=== PATIENT | male | born 1935 | race Caucasian/White ===

== ENCOUNTER 2018-03-20 10:01 | Inpatient (IN) | payer MEDICARE ==
[~2018-03-20] VITALS: Ht 170.2 cm; Wt 75.1 kg
--- NOTE | ~2018-03-20 | HEMODYNAMI ---
PATIENT:BLADIMIR RIVERA MEDICAL RECORD: [id number] : 31 LOCATION:[facility] D.2310 ADMISSION DATE: 03/20/18 Generatedon:03/24/201813:14 Patient name: BLADIMIR RIVERA Patient #: [id number] SSN: D OB: 1935 Date of study: 03/24/2018 Page: Of Hemodynamic Procedure Report Patient Data Patient Demographics Procedure consent was obtained First Name: BLADIMIR Gender: Male Last Name: MIGUEL : 1935 Patient #: [id number] Age: 82 year(s) Race: Unknown Additional ID: [id number] Contact details [address]: [address] [place] [address] State: [place] City: [place] Zip code: [address] Past Medical History Allergies Allergen Reaction Date Comments Reported Morphine 03/24/2018 Admission Admission Data Admission Date: 03/20/2018 Admission Time: 14:00 Room #: D2310 Procedure Procedure Types Cath Procedure Peripheral Cath Diagnostic Procedure Miscellaneous Procedure Description Procedure Date Procedure Date: 03/24/2018 Procedure Start Time: 12:30 Procedure Staff Name Function Andrés Escoto MD Performing Physician Ulices Ortiz RT Monitor Kori Trevino RN Nurse Procedure Data Cath Procedure Fluoroscopy Diagnostic fluoroscopy Total fluoroscopy Time: 4 time: 4 min min Diagnostic fluoroscopy Total fluoroscopy dose: 364 dose: 364 mGy mGy Contrast Material Contrast Material Type Amount (ml) Isovue 300 80 Diagnostic catheters Device Type Used For End Catheter Placement Cook CHG-B 5FR 65CM catheter ([id number]) Angiodynamics SOS OMNI 2 NON B 5FR 65CM catheter ([id number]) Procedure Medications Medication Administration Route Dosage Heparin Flush Bag added to field 3 bags (1000units/500ml NS) Lidocaine 1% added to field 20 Versed I.V. 1 mg Fentanyl I.V. 50 mcg Hemodynamics Rest Heart Rate: 70 (bpm) Snapshots Pre Cath Intra NCS Post Cath Vital Signs Time Heart Resp SPO2 etCO2 NIBP (mmHg) Rhythm Pain Sedation Rate (ipm) (%) (mmHg) Status Level (bpm) 12:18:29 69 16 100 22 137/65(104) NSR 0 (11) 10(A) , No pain 12:22:49 69 14 100 27.3 122/61(104) NSR 0 (11) 10(A) , No pain 12:27:07 69 15 100 27.3 129/60(109) NSR 0 (11) 10(A) , No pain 12:31:25 77 18 100 30.3 128/70(108) NSR 0 (11) 10(A) , No pain 12:35:41 71 18 100 31.8 131/68(109) NSR 0 (11) 10(A) , No pain 12:39:59 74 14 100 25.8 126/70(106) NSR 0 (11) 10(A) , No pain 12:44:13 69 15 100 28.8 141/74(129) NSR 0 (11) 10(A) , No pain 12:48:31 69 16 100 22.7 141/76(117) NSR 0 (11) 10(A) , No pain 12:52:52 69 20 100 18.2 142/73(115) NSR 0 (11) 10(A) , No pain 12:57:14 69 17 100 22 141/71(126) NSR 0 (11) 10(A) , No pain 13:01:30 69 29 99 0 127/61(107) NSR 0 (11) 10(A) , No pain 13:05:48 69 13 99 22 128/63(99) NSR 0 (11) 10(A) , No pain 13:10:04 72 21 22.7 120/63(107) NSR 0 (11) 10(A) , No pain Medications Time Medication Route Dose Verified Delivered Reason Notes Effe ctiveness by by 12:28:37 Heparin Flush added 3 Andrés Bowen used for Bag to bags Escoto Escoto procedure (1000units/500ml field MD BLAS NS) 12:28:50 Lidocaine 1% added 20ml Andrés Bowen for local to vial Secoto Escoto anesthetic field MD BLAS 12:34:41 Versed I.V. 1 mg Andrés Bravo for Escoto Uriel RN sedation 12:34:52 Fentanyl I.V. 50 Andrés Bravo for mcg Jevon Trevino RN sedation Procedure Log Time Note 12:03:40 Ulices Angel RT (R) (CV) sent for patient. Start room use. 12:04:10 Time tracking: Regular hours (M-F 7:00 - 5:00) 12:04:15 Plan of Care:Hemodynamics will remain stable., Cardiac rhythm will remain stable., Comfort level will be maintained., Respiratory function will remain adequate., Patient/ family verbilizes understanding of procedure., Procedure tolerated without complication., Recovers from procedure without complications.. 12:04:21 Patient received from ICU to IR Alert and oriented. Tansferred to table in Supine position. 12:04:24 Correct patient and procedure confirmed by team. 12:04:27 Signed procedure consent form obtained from patient. 12:04:29 ECG and BP/O2 sat monitors applied to patient. 12:04:30 Full Disclosure recording started 12:04:32 - 12:04:36 H&P Date Dictated: 03/24/2018 Within 30 days and on chart.. 12:04:38 Pre-procedure instructions explained to patient. 12:04:38 Pre-op teaching completed and patient verbalized understanding. 12:04:44 Use device set IR Diagnostic 12:04:45 ACIST Syringe (42940) opened to sterile field. 12:04:45 ACIST Hand Control (09702) opened to sterile field. 12:04:46 ACIST Manifold (33512) opened to sterile field. 12:04:46 Bag Decanter (2001S) opened to sterile field. 12:04:47 Sterile Angiographic Pack opened to sterile field. 12:04:49 Tegaderm 4 x 4 (1626W) opened to sterile field. 12:04:56 Family unavailable. 12:04:58 Patient NPO since Midnight. 12:05:09 Patient allergic to Morphine 12:05:12 Is the patient allergic to Iodine/contrast media? No. 12:05:17 Is patient on blood thinner?No 12:05:23 Patient diabetic? Yes. 12:05:26 If diabetic: On Metformin? Yes ::28 - 12::28 ----Pre-sedation anethsthesia assessment.---- 12:05:31 Previous problem with sedation/anesthesia? No ? 12:05:33 Snore? No 12:05:36 Sleep apnea? No 12:05:38 Deviated septum? No 12:05:40 Opens mouth fully? Yes 12:05:42 Sticks out tongue? Yes 12:05:53 Airway obstruction? No ? 12:06:24 Dentures? Yes in tight 12:16:34 Pre procedure: right dorsailis pedis pulse Doppler 12:16:38 Pre procedure: right posterior tibial pulse Doppler 12:16:44 Patient pain scale 0/10 no pain. 12:17:01 IV patent on arrival in right forearm with Lactated Ringers at [facility]. 12:17:06 Sharps counted by scrub and verified by R.N. 12:17:06 Alarms reviewed by R. N. 12:17:10 Right groin area was prepped with chlora-prep and draped in sterile fashion 12:17:19 Vital chart was started 12:17:20 Baseline sample Acquired. 12:27:45 Physician arrived 12::46 --------ALL STOP TIME OUT------ 12::46 Final Timeout: patient, procedure, and site verified with staff and physician. All members of the team are in agreement. 12:27:48 Right groin site verified by team. 12:27:53 Sedation plan: IV Moderate Sedation Medication:Versed, Fentanyl 12:28:37 Heparin Flush Bag (1000units/500ml NS) 3 bags added to field was administered by Andrés Escoto MD; used for procedure; 12:28:50 Lidocaine 1% 20ml vial added to field was administered by Andrés Escoto MD; for local anesthetic; 12:30:20 Procedure started. 12:30:26 Local anesthetic to right femoral artery with Lidocaine 1% by Andrés Escoto MD.INITIAL ACCESS ONLY 12:30:31 SHEATH 5FR [place] (AYL682) opened to sterile field. 12:30:31 PERCUTANEOUS ENTRY 19GA needle opened to sterile field. 12:30:32 DOC .035 wire (L13661) opened to sterile field. 12:30:36 A Adaptive Planning CHG-B 5FR 65CM catheter ([id number]) was advanced over the wire and used for . 12:34:41 Versed 1 mg I.V. was administered by Shelly Trevino RN; for sedation; 12:34:52 Fentanyl 50 mcg I.V. was administered by Shelly Trevino RN; for sedation ; 12:41:09 A Angiodynamics SOS OMNI 2 NON B 5FR 65CM catheter ([id number]) was advanced over the wire and used for . 12:49:31 Procedure ended.(Physican Out) 12:51:03 Tegaderm 6 x 8 (1628) opened to sterile field. 12:51:03 Tegaderm 6 x 8 (1628) opened to sterile field. 12:51:33 Fluoroscopy time 04.00 minutes. 12:51:39 Fluoroscopy dose: 364 mGy 12:51:39 Flurop Dose total: 364 12:55:15 sheath and cath left in rt.groin and marco artery for vasopressor infusio n 4 x 4 and tegaderm applied 12:55:38 Sharps counted by scrub and verified by R.N. 12:55:46 Post-op/insertion site Right Femoral artery dressed using a 4 x 4 and Tegaderm. 12:55:50 Post right femoral artery:stable 12:55:53 Post procedure instruction explained to patient.Patient verbalizes understanding. 12:55:54 Procedure and supply charges have been captured, reviewed, submitted an d are correct. 12:56:31 Contrast amount:Isovue 300 80ml. 13:13:50 Post Procedure Pulses reassessed and unchanged 13:13:57 Report given to ICU. 13:14:00 Patient transfered to ICU with Bed. 13:14:23 Vital chart was stopped Device Usage Item Name Manufacture Quantity Catalog Hospital Part Current Minim al Lot# / Number Charge Number Stock Stock Serial# Code ACIST Syringe Acist Medical 1 72476 [id number] 470928 [id number] 20 (62767) Systems Inc ACIST Hand Acist Medical 1 75120 227218 029777 068342 5 Control Systems Inc (47425) ACIST Acist Medical 1 13201 993212 611205 725261 5 Manifold Systems Inc (03424) Bag Decanter Microtek 1 2002S 015579 54438 786043 5 (2001S) Medical Inc. Sterile Cardinal 1 [id number] 265018 029798 5 Angiographic Health Pack Tegaderm 4 x 3M 1 1626W 090395 713538 051387 5 4 (1626W) SHEATH 5FR Terumo 1 EAF461 845600 893244 204869 5 [place] (TFX307) PERCUTANEOUS Cook [facility] 1 I24366 923259 412627 5 [id number] ENTRY 19GA needle DOC .035 wire Cook [facility] 1 Q46704 074444 938826 5 (W91509) Cook CHG-B Cook [facility] 1 V07039 842890 739625 525190 5 5FR 65CM catheter (H00535) Angiodynamics Angiodynamics 1 [id number] 560315 47677 737031 5 SOS OMNI 2 NON B 5FR 65CM catheter ([id number]) Tegaderm 6 x 3M 2 1628 365961 919098 5 8 (1628) Signature Audit [place] Stage Time Signature Unsigned Intra-Procedure 03/24/2018 Ulices 1:14:21 PM Angel RT (R) (CV) Signatures Monitor : Ulices Signature : Angel RT Date : Time : [place] [id number] [facility] [place] [address]
[~2018-03-20 10:01] MED LIST: BAYER CHEWABLE81 MG PO; CARDIZEM120 MG PO; DONEPEZIL HCL5 M1 PO; FUROSEMIDE40 MG PO; GLUCOTROL 5 MG T5 MG PO; K-TAB10 MEQ PO; LOPRESSOR25 MG PO; NITROSTAT0.4 MG SL; PRAVACHOL40 MG PO; PROTONIX40 MG PO; ZYLOPRIM300 MG PO
[2018-03-20] MEDS ORDERED: PLAVIX75 MG PO (10:07)
[2018-03-20] MEDS ORDERED: GLUCOPHAGE1000 MG PO (10:09)
[2018-03-20 10:51] LABS: BASOPHILS 0.1 % (0-2); EOSINOPHILS 0 % (0-7); HEMATOCRIT 41.9 % (42.0-54.0); HEMOGLOBIN 14.1 g/dL (13.5-17.5); IMMATURE GRANULOCYTES 0.2 % (0-5); LYMPHOCYTES 22.1 % (15-50); MCH 31.2 pg (26.0-34.0); MCHC 33.7 g/dL (31.0-37.0); MCV 92.7 fL (80.0-100.0); MEAN PLATELET VOLUME 10.1 fL (7.4-10.4); MONOCYTES 7.9 % (2-11); NEUTROPHILS 69.7 % (40-80); PLATELET COUNT 247 10x3/uL (130-400); RBC 4.52 10x6/uL (4.20-6.10); RDW 14.5 % (11.5-14.5); WBC 8.7 10x3/uL (4.8-10.8)
[2018-03-20 11:11] LABS: ALBUMIN 3.7 g/dL (3.4-5.0); ANION GAP 16.8 mmol/L (8-16); BILIRUBIN - TOTAL 0.96 mg/dL (0.2-1.3); CALCIUM 8.9 mg/dL (8.5-10.1); CARBON DIOXIDE 27.1 mmol/L (21.0-32.0); CREATININE - SERUM 1.4 mg/dL (0.6-1.3); POTASSIUM - SERUM 3.9 mmol/L (3.5-5.1); PROTEIN - SERUM 7.4 g/dL (6.4-8.2); TROPONIN-I 0.032 ng/mL (0.000-0.060)
--- NOTE | 2018-03-20 12:56 | NUR ---
URINE COLLECTED AND SENT TO LAB
[2018-03-20 13:20] LABS: APPEARANCE CLEAR (CLEAR); COLOR YELLOW (YELLOW)
[2018-03-20 13:21] LABS: BACTERIA NONE SEEN /hpf (NONE SEEN); BILIRUBIN NEGATIVE (NEGATIVE); EPITHELIAL CELLS RARE /hpf (0-5); GLUCOSE NEGATIVE (NEGATIVE); GRANULAR CAST RARE /lpf (NONE SEEN); HYALINE CAST 0-5 /lpf (NONE SEEN); KETONE NEGATIVE (NEGATIVE); MUCUS <1+ /lpf (NONE SEEN); NITRITE NEGATIVE (NEGATIVE); PROTEIN 1+ mg/dL (NEGATIVE); RED CELLS - URINE OCC /hpf (0-5); UROBILINOGEN NORMAL (NORMAL); WHITE CELLS - URINE OCC /hpf (0-5)
--- NOTE | 2018-03-20 16:34 | NUR ---
LEVZAINAB COMPLETED AT 1600
--- NOTE | 2018-03-20 17:36 | NUR ---
RECIEVED PT FROM ER. PT C/O HUNGER/THIRST BUT HAS NPO ORDER. FMAILY AT BEDSIDE. CONFUSED. UP WITH ASSIST BUT CONFUSED. FALL RISK. CL IN REACH.
[2018-03-20 18:10] VITALS: BP 109/59; BMI 25.9
[2018-03-20 19:44] VITALS: BP 116/55
--- NOTE | 2018-03-20 20:00 | NUR ---
RESUMING CARE. PT IS ALERT AND CONFUSED TO TIME AND SITUATION. BED IS IN THE LOWEST POSITION WITH CALL LIGHT IN REACH. SIDE RAILS UP X 2. WILL CONTINUE MONITOR PT AND FOLLOW PLAN OF CARE.
[2018-03-20 23:50] VITALS: BP 135/61
--- NOTE | 2018-03-21 03:33 | NUR ---
PT RESTING WITH EYES CLOSED. RESP EVEN AND REGULAR. SR UP X2,CALL LIGHT WITHIN REACH.
[2018-03-21 03:45] VITALS: BP 121/50
[2018-03-21 05:44] LABS: BASOPHILS 0.1 % (0-2); EOSINOPHILS 0.1 % (0-7); HEMATOCRIT 39.6 % (42.0-54.0); HEMOGLOBIN 13.2 g/dL (13.5-17.5); IMMATURE GRANULOCYTES 0.4 % (0-5); LYMPHOCYTES 30.3 % (15-50); MCH 31.3 pg (26.0-34.0); MCHC 33.3 g/dL (31.0-37.0); MCV 93.8 fL (80.0-100.0); MEAN PLATELET VOLUME 10.4 fL (7.4-10.4); MONOCYTES 11.7 % (2-11); NEUTROPHILS 57.4 % (40-80); PLATELET COUNT 218 10x3/uL (130-400); RBC 4.22 10x6/uL (4.20-6.10); RDW 14.8 % (11.5-14.5); WBC 7.4 10x3/uL (4.8-10.8)
[2018-03-21 05:55] LABS: ANION GAP 14.7 mmol/L (8-16); BILIRUBIN - TOTAL 0.86 mg/dL (0.2-1.3); CALCIUM 8.5 mg/dL (8.5-10.1); CARBON DIOXIDE 28.1 mmol/L (21.0-32.0); CREATININE - SERUM 1.1 mg/dL (0.6-1.3); MAGNESIUM - SERUM 1.5 mg/dL (1.8-2.4); PHOSPHOROUS 3.5 mg/dL (2.5-4.9); POTASSIUM - SERUM 3.8 mmol/L (3.5-5.1); PROTEIN - SERUM 6.4 g/dL (6.4-8.2)
--- NOTE | 2018-03-21 07:20 | NUR ---
PT IN ROOM LYING DOWN. FAMILY AT BEDSIDE. STATES HE SLEPT WELL. NO C/O OTHER THAN BEING HUNGRY. (PT NPO FOR SURGERY CONSULT). PROVIDED MOUTH SWABS TO EASE DRYNESS. CL IN REACH.
[2018-03-21 08:00] VITALS: BP 129/61
--- NOTE | 2018-03-21 12:26 | HP ---
PATIENT: BLADIMIR RIVERA MEDICAL RECORD: [id number] ACCOUNT: [id number] LOCATION:[address] : [birth year] ADMISSION DATE: 03/20/18 PCP: DELMER UGARTE MD HISTORY AND PHYSICAL EXAMINATION HISTORY OF PRESENT ILLNESS: An 82-year-old male presented to the Emergency Room with a complaint of abdominal pain and suprapubic pain, right lower quadrant abdominal pains and suprapubic pain. 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 Denies tobacco or alcohol use. REVIEW OF SYSTEMS: GENERAL: No reported change in weight. Loss of appetite for the past several days with acute symptoms. HEENT: No cephalgia, visual changes, tinnitus, epistaxis, or dysphagia. CARDIOVASCULAR: Denies chest pain, denies palpitations. PULMONARY: Does have a cardiac history. PULMONARY: Denies hemoptysis, denies night sweats. GASTROINTESTINAL: Denies hematemesis, hematochezia or melena. Does admit right lower quadrant and suprapubic abdominal pain. MUSCULOSKELETAL: No acute changes. NEUROLOGIC: Increased confusion. Son reports visual hallucinations over the past several days, wax and wane and auditory as well. CURRENT MEDICATIONS: Listed as, donepezil 5 mg daily, Plavix 75 mg daily, Cardizem 120 mg t.i.d., nitroglycerin p.r.n., pravastatin 40 mg at bedtime, aspirin 81 mg daily, Lasix 20 mg daily, allopurinol 300 mg daily, unclear history of metformin and glyburide. PHYSICAL EXAMINATION: VITAL SIGNS: Temp on admission 99, blood pressure 109/59, heart rate 86, respirations 20, O2 sats 98%. GENERAL: Alert, oriented, mild to moderate distress secondary to abdominal and suprapubic pain. HEENT: Normocephalic, atraumatic. Eyes: Pupils are equally round and reactive. Ears: Canals patent, TMs are intact. Nose: Nares patent without drainage. Throat: No erythema, no exudates. NECK: Supple. No lymphadenopathy, no JVD, no appreciable carotid bruits. HEART: Regular rate and rhythm. No S3, S4, no rub. LUNGS: Clear to auscultation bilaterally. Breathing is nonlabored. ABDOMEN: Soft. Right lower quadrant tenderness with rebound and guarding. Suprapubic tenderness and right inguinal tenderness with guarding. IMAGING: CT of the abdomen and pelvis significant for small hiatal hernia. Appendix visualized not enlarged. There is wall thickening noted involving the ascending colon with minimal subjacent inflammatory changes. There is mild nonspecific bilateral perinephric stranding. No hydronephrosis of either kidney. Several cysts noted in both kidneys. Urinary bladder is partially distended without any focal irregular wall thickening. LABORATORY DATA: Urinalysis yellow, clear, 1+ protein, negative ketones, negative leukocyte esterase, no urine bacteria. CBC: White count 8.7, hemoglobin 14.1, hematocrit 41.9, platelets 247. Sodium 134, potassium 3.9, chloride 94, bicarbonate 27.1, BUN 28, creatinine 1.4, AST 20, ALT 20, alkaline HISTORY AND PHYSICAL [id number] RIVERABLADIMIR phosphatase 85. Troponin 0.032, amylase 50, and lipase 148. ASSESSMENT AND PLAN: 1. Abdominal pain with rebound and guarding. Abnormal CT with ascending colitis, empiric antibiotics. Cultures pending. With the location of the pain with right lower quadrant rebound and guarding, we will also consult surgery, n.p.o. tonight, IV hydration. 2. Diabetes. Sliding scale insulin. 3. Pain management. 4. Acute mental status change with history of cerebrovascular accident. We will obtain CT of the head without. Discussed case and care plan with son, agrees with plan, appreciative. TRANSINT:[id number] Voice Confirmation ID: [id number] DOCUMENT ID: [id number] GABRIELA YEE DO at 1226 CC: [id number] DICTATION DATE: 03/20/18 1833 MAGISTERIAL DISTRICT JUDGE: 03/20/18 3702 ADM IN [facility] [address] [place] [address]
--- NOTE | 2018-03-21 12:42 | NUR ---
EMAIL PRODUCTION CONSULTANT NOTE: PT RESTING IN BED. DENIES PAIN. NPO. NO S/S OF ACUTE DISTRESS. CL IN PLACE.
--- NOTE | 2018-03-21 14:36 | NUR ---
IV INFILATRATED RIGHT BEFORE I HUNG DUE ANTIBIOTIC. WILL REPLACE.
--- NOTE | 2018-03-21 14:54 | NUR ---
RESITED TO 20G RFA
[2018-03-21 16:00] VITALS: BP 126/53
[2018-03-21 17:55] VITALS: BP 135/56
--- NOTE | 2018-03-21 18:13 | NUR ---
PT RESTING, VERY PLESANTLY AND FRIENDLY. NO COMPLAINTS OR CONCERNS AT THIS TIME. CL I N REACH.
--- NOTE | 2018-03-21 19:20 | NUR ---
ALERT/AWAKE DENIES PAIN OR ANY NEEDS. IV IN R FA INTACT WITH LR INFUSING. TELEMETRY SHOWS 64 PACED. SOME OHKAY OWINGEH NOTED. ORIENTED TO CALL LIGHT.
--- NOTE | 2018-03-21 21:10 | NUR ---
ADMIN SCHED MEDS. CHECKED BS AT 132. ASSISTED TO BATHROOM TO VOID.
--- NOTE | 2018-03-22 02:45 | NUR ---
STATED HE HAD A BM, BUT THERE WAS URINE ALSO IN THE HAT AND COULD NOT BE USED FOR LAB ORDERED.
[2018-03-22 04:49] LABS: BASOPHILS 0.1 % (0-2); EOSINOPHILS 0.2 % (0-7); HEMATOCRIT 39.5 % (42.0-54.0); HEMOGLOBIN 12.8 g/dL (13.5-17.5); IMMATURE GRANULOCYTES 0.4 % (0-5); LYMPHOCYTES 23.8 % (15-50); MCH 30.9 pg (26.0-34.0); MCHC 32.4 g/dL (31.0-37.0); MCV 95.4 fL (80.0-100.0); MEAN PLATELET VOLUME 10.1 fL (7.4-10.4); MONOCYTES 11.3 % (2-11); NEUTROPHILS 64.2 % (40-80); PLATELET COUNT 201 10x3/uL (130-400); RBC 4.14 10x6/uL (4.20-6.10); RDW 14.8 % (11.5-14.5); WBC 8.1 10x3/uL (4.8-10.8)
[2018-03-22 05:07] VITALS: BP 160/63
[2018-03-22 05:10] LABS: ALBUMIN 2.9 g/dL (3.4-5.0); ANION GAP 13.4 mmol/L (8-16); BILIRUBIN - TOTAL 0.66 mg/dL (0.2-1.3); CALCIUM 8.3 mg/dL (8.5-10.1); CARBON DIOXIDE 27.9 mmol/L (21.0-32.0); CREATININE - SERUM 1.1 mg/dL (0.6-1.3); MAGNESIUM - SERUM 1.3 mg/dL (1.8-2.4); POTASSIUM - SERUM 3.3 mmol/L (3.5-5.1); PROTEIN - SERUM 5.9 g/dL (6.4-8.2)
[2018-03-22 05:16] LABS: PHOSPHOROUS 2.3 mg/dL (2.5-4.9)
--- NOTE | 2018-03-22 05:45 | NUR ---
CHECKED BS AT 147. REQUESTED SOME ICE WATER.
--- NOTE | 2018-03-22 08:10 | NUR ---
PT ASLEEP, DID NOT WAKE I ENTERED. DID NOT FURTHER DISTURB, CL IN REACH. SRX2.
[2018-03-22 08:59] VITALS: BP 139/78
--- NOTE | 2018-03-22 12:10 | NUR ---
PT ACCIDENTLY PULLED OUT I/V. TO BE REPLACED.
[2018-03-22 13:05] VITALS: BP 121/52
--- NOTE | 2018-03-22 14:06 | NUR ---
PT REFUSING NEW I/V PLACEMENT UNTIL HE SHOWERS. WILL ATTTEND TOO.
--- NOTE | 2018-03-22 15:45 | NUR ---
RIGHT ANTERIOR WRIST IV
--- NOTE | 2018-03-22 15:59 | NUR ---
BOAT JOINER NOTE: PT RESTING IN BED WITH SON AT BEDSIDE. CO OF "X4 STOOLS" TODAY AND "SORE ABD". SON STATES PT MENTAL STATUS "IS MORE CLEAR TODAY". NO S/S OF ACUTE DISTRESS. IV INFUSING TO R FOREARM. CL IN PLACE.
[2018-03-22 16:09] VITALS: BP 135/72
--- NOTE | 2018-03-22 19:20 | NUR ---
PT IS RESTING IN BED WITH EYES OPEN. ALERT AND ORIENTED X 3. PT BECAME SLIGHTLY SOB WHILE HE WAS EXPLAINING TO ME TO WATCH HIM VERY CLOSELY TONIGHT, BECAUSE HE MAY HAVE A SPELL AT ANY MOMENT. I ENCOURAGED PT TO TAKE SOME DEEP BREATHS AND HE CALMED DOWN IMMEDIATELY. IV INFUSING TO RIGHT WRIST WITHOUT DIFFICULTY. TELEMETRY UNIT IS ON AND INTACT. PT IS HARD OF HEARING. SR'S ARE UP X 3 IN BED. CALL LIGHT AND BEDSIDE TABLE ARE WITHIN EASY REACH.
[2018-03-22 19:45] VITALS: BP 123/57
--- NOTE | 2018-03-22 21:05 | NUR ---
PT ASSISTED TO THE BATHROOM WITH MIN ASSIST. SMALL BM NOTED.
[2018-03-22 23:41] VITALS: BP 117/58
[2018-03-23] VITALS (7 sets, daily range): BP systolic 109–143; BP diastolic 59–74
--- NOTE | 2018-03-23 00:21 | NUR ---
PT RESTING IN BED WITH EYES OPEN. HE STATES HE IS HAVING A MUCH BETTER NIGHT THAN USUAL. NO NEEDS VOICED.
--- NOTE | 2018-03-23 04:06 | NUR ---
PT RESTING IN BED WITH NO DISTRESS. RESPS NONLABORED. MONITOR AND CPOC. CALL LIGHT IN REACH.
[2018-03-23 05:42] LABS: BASOPHILS 0.2 % (0-2); EOSINOPHILS 0.5 % (0-7); HEMATOCRIT 36.9 % (42.0-54.0); HEMOGLOBIN 12.4 g/dL (13.5-17.5); IMMATURE GRANULOCYTES 0.3 % (0-5); LYMPHOCYTES 22.5 % (15-50); MCH 31.7 pg (26.0-34.0); MCHC 33.6 g/dL (31.0-37.0); MCV 94.4 fL (80.0-100.0); MEAN PLATELET VOLUME 10.2 fL (7.4-10.4); MONOCYTES 12.1 % (2-11); NEUTROPHILS 64.4 % (40-80); PLATELET COUNT 195 10x3/uL (130-400); RBC 3.91 10x6/uL (4.20-6.10); RDW 14.7 % (11.5-14.5); WBC 6.1 10x3/uL (4.8-10.8)
[2018-03-23 05:50] LABS: ALBUMIN 2.7 g/dL (3.4-5.0); ALKALINE PHOSPHATASE 58 U/L (46-116); ALT (SGPT) 16 U/L (10-68); BILIRUBIN - TOTAL 0.64 mg/dL (0.2-1.3); CALCIUM 7.9 mg/dL (8.5-10.1); CARBON DIOXIDE 28.4 mmol/L (21.0-32.0); CHLORIDE - SERUM 102 mmol/L (98-107); CREATININE - SERUM 0.9 mg/dL (0.6-1.3); GLUCOSE 149 mg/dL (74-106); MAGNESIUM - SERUM 1.2 mg/dL (1.8-2.4); PHOSPHOROUS 2.8 mg/dL (2.5-4.9); PROTEIN - SERUM 5.6 g/dL (6.4-8.2); SODIUM 139 mmol/L (136-145); eGFR NON AFRICAN AMERICAN 85 mL/min (90-120)
[2018-03-23 06:06] LABS: CALC OSMOLALITY 278 mosm/kg (275-300); UREA NITROGEN 8 mg/dL (7-18)
[2018-03-23 06:07] LABS: POTASSIUM - SERUM 2.7 mmol/L (3.5-5.1)
--- NOTE | 2018-03-23 07:37 | NUR ---
AM ROUNDS- PT RESTING COMFORTABLY IN BED, A/O X2, RESP EVEN AND NONLABORED ON RA. RT WRIST IV INFUSING LR AT 100. MONITOR SHOWING SR 69. PT DENIES ANY NEEDS AT THIS TIME. CALL LIGHT IN REACH, NAD NOTED,WILL CONTINUE PLAN OF CARE.
--- NOTE | 2018-03-23 11:24 | NUR ---
BLOOD SUGAR OF 164, 2UNITS OF HUMULIN GIVEN PER S/S. PT IN BED, DENIES ANY NEEDS A THIS TIME. CALL LIGHT IN REACH, NAD NOTED, WILL CONTINUE TO MONITOR.
[2018-03-23 13:08] LABS: POTASSIUM - SERUM 3.6 mmol/L (3.5-5.1)
--- NOTE | 2018-03-23 14:46 | NUR ---
PT RESTING COMFORTABLY IN BED, NAD NOTED, CALL LIGHT IN REACH, WILL CONTINUE TO MONITOR.
--- NOTE | 2018-03-23 20:00 | NUR ---
PT HAD A BLOODY STOOL WHICH ONLY DISCOLORED THE WATER SLIGHTLY. I INFORMED PT WE WOULD KEEP AN CLOSE EYE ON HIM. VERBAL UNDERSTANDING VOICED.
--- NOTE | 2018-03-23 21:10 | NUR ---
PT HAD A BLOODY STOOL CONSISTING OF A LARGE AMOUNT OF TAMIKA RED BLOOD WITH NUMEROUS CLOTS. DR GOPAL RUFFIN.
--- NOTE | 2018-03-23 22:14 | NUR ---
DR HERRON HERE ON FLOOR TO SEE PT. SHE PUT IN NUMEROUS ORDERS. PT TO TRANSFER TO ICU.
--- NOTE | 2018-03-23 22:38 | NUR ---
ICU CALLED WITH REPORT ON PT. DESTINI STATED DR HERRON HAD ALREADY GIVEN HIM REPORT AND THE ROOM WAS BEING REDIED NOW.
[2018-03-23 22:39] LABS: BASOPHILS 0.1 % (0-2); EOSINOPHILS 0.6 % (0-7); HEMATOCRIT 38.8 % (42.0-54.0); HEMOGLOBIN 12.8 g/dL (13.5-17.5); IMMATURE GRANULOCYTES 0.1 % (0-5); LYMPHOCYTES 22.8 % (15-50); MCH 31.4 pg (26.0-34.0); MCV 95.1 fL (80.0-100.0); MEAN PLATELET VOLUME 9.9 fL (7.4-10.4); NEUTROPHILS 67.4 % (40-80); PLATELET COUNT 198 10x3/uL (130-400); RBC 4.08 10x6/uL (4.20-6.10); RDW 14.9 % (11.5-14.5)
[2018-03-23 22:47] LABS: INR 1.24 (0.85-1.17)
--- NOTE | 2018-03-23 22:51 | NUR ---
ARRIVED TO UNIT VIA [email or web address] 2.
--- NOTE | 2018-03-23 23:05 | NUR ---
CALL MADE TO EJ RIVERA. NO ANSWER. CALL MADE TO NAIF RIVERA. HE WAS NOTIFIED OF TRANSFER. HE SAYS HE WILL COME IN IN THE AM. WARREN RIVERA RETURNED CALL AND WAS ALSO NOTIFIED.
[2018-03-23 23:07] LABS: WBC 8.4 10x3/uL (4.8-10.8)
--- NOTE | 2018-03-23 23:15 | NUR ---
MULTIPLE BRIGHT RED BMS NOTED WITH BLOOD CLOTS. AWARE.
[2018-03-24] VITALS (16 sets, daily range): BP systolic 93–138; BP diastolic 53–74; Ht 170.2 cm; Wt 75.1 kg
--- NOTE | 2018-03-24 00:10 | NUR ---
CRITICAL FINDING RECEIVED BY THIS NURSE FROM DR. LOZANO. INFORMATION RELAYED TO CHARGE NURSE SUNDAY METZ. DR. HERRON NOTIFIED BY SUNDAY METZ RN
--- NOTE | 2018-03-24 00:51 | NUR ---
DR. HERRON AT BEDSIDE. UPDATE GIVEN
--- NOTE | 2018-03-24 03:42 | NUR ---
DR. CAMARGO PHONED FOR UPDATE. ALL QUESTIONS ANSWERED. REQUESTS NURSE TO CALL IF ANYTHING MAJOR CHANGES. CALL
[2018-03-24 04:42] LABS: BASOPHILS 0.1 % (0-2); EOSINOPHILS 0.3 % (0-7); HEMATOCRIT 31.1 % (42.0-54.0); HEMOGLOBIN 10.3 g/dL (13.5-17.5); IMMATURE GRANULOCYTES 0.3 % (0-5); LYMPHOCYTES 13.7 % (15-50); MCH 30.7 pg (26.0-34.0); MCHC 33.1 g/dL (31.0-37.0); MEAN PLATELET VOLUME 9.8 fL (7.4-10.4); MONOCYTES 8.8 % (2-11); NEUTROPHILS 76.8 % (40-80); PLATELET COUNT 205 10x3/uL (130-400); RBC 3.35 10x6/uL (4.20-6.10); RDW 15.2 % (11.5-14.5); WBC 6.9 10x3/uL (4.8-10.8)
[2018-03-24 05:03] LABS: MCV 92.8 fL (80.0-100.0)
[2018-03-24 05:07] LABS: CALC OSMOLALITY 282 mosm/kg (275-300); CALCIUM 7.4 mg/dL (8.5-10.1); CARBON DIOXIDE 26.4 mmol/L (21.0-32.0); CHLORIDE - SERUM 107 mmol/L (98-107); CREATININE - SERUM 0.9 mg/dL (0.6-1.3); GLUCOSE 149 mg/dL (74-106); MAGNESIUM - SERUM 1.5 mg/dL (1.8-2.4); SODIUM 141 mmol/L (136-145); UREA NITROGEN 9 mg/dL (7-18); eGFR NON AFRICAN AMERICAN 85 mL/min (90-120)
[2018-03-24 05:09] LABS: POTASSIUM - SERUM 2.8 mmol/L (3.5-5.1)
--- NOTE | 2018-03-24 06:33 | NUR ---
EJ PHONED FOR UPDATE. PT AWARE AND GIVES NURSE PERMISSION TO GIVE UPDATE. ALL QUESTIONS ANSWERED.
--- NOTE | 2018-03-24 07:00 | NUR ---
SHIFT ASSESSMENT COMPLETED, PT CARE ASSUMED. MONITORS ON AND WORKING. VITALS STABLE. CALL LIGHT WITHIN REACH. WILL CONTINUE TO OBSERVE.
--- NOTE | 2018-03-24 09:00 | NUR ---
NO CHNAGES, MONITIORS ON AND WORKING. VITALS STABLE. NO SIGNS/SYMPTOMS OF PAIN OR DISCOMFORT NOTED AT THIS TIME, WILL CONTINUE TO OBSERVE.
[2018-03-24 09:48] LABS: BASOPHILS 0.2 % (0-2); EOSINOPHILS 0.5 % (0-7); HEMATOCRIT 31.3 % (42.0-54.0); HEMOGLOBIN 10.4 g/dL (13.5-17.5); IMMATURE GRANULOCYTES 0.2 % (0-5); LYMPHOCYTES 21.8 % (15-50); MCH 30.5 pg (26.0-34.0); MCHC 33.2 g/dL (31.0-37.0); MCV 91.8 fL (80.0-100.0); MEAN PLATELET VOLUME 9.5 fL (7.4-10.4); MONOCYTES 11.1 % (2-11); NEUTROPHILS 66.2 % (40-80); PLATELET COUNT 197 10x3/uL (130-400); RBC 3.41 10x6/uL (4.20-6.10); RDW 15.7 % (11.5-14.5); WBC 5.8 10x3/uL (4.8-10.8)
--- NOTE | 2018-03-24 11:00 | NUR ---
NO CHNAGES, SEE FLOW SHEET FOR FURTHER DETAILS. WILL CONTINUE TO OBSERVE.
--- NOTE | 2018-03-24 13:00 | NUR ---
PT IN IR
--- NOTE | 2018-03-24 15:00 | NUR ---
PT IN IR
--- NOTE | 2018-03-24 15:38 | MORECARE ---
CASE MANAGEMENT DISCHARGE SUMMARY PATIENT: BLADIMIR RIVERA UNIT: [id number] ADM DATE: 03/20/18 AGE: 82 : 33 SEX: M ROOM/BED: D.2310 AUTHOR: JORGE ZAMBRANO PHYSICIAN: REFERRING PHYSICIAN: GABRIELA YEE DO DATE OF SERVICE: 03/24/18 Discharge Plan Patient Name: BLADIMIR RIVERA [facility] [facility] 1935 Planned Disposition: Home Anticipated Discharge Date: Discharge Date: Expected LOS: Initial Reviewer: [email or web address] Initial Review Date: 03/24/2018 Generated: 03/24/18 4:37 pm DCPIA - Discharge Planning Initial Assessment Updated by [email or web address]: Pura Knowles on 03/24/18 3:37 pm * Is the patient Alert and Oriented? Yes * How many steps to enter\exit or inside your home? * PCP DR. UGARTE * Pharmacy [facility] * Preadmission Environment Home with Family * ADLs Independent * Other Equipment W/C, WALKER, SHOWER CHAIR * List name and contact numbers for known caregivers / representatives who currently or will assist patient after discharge: NAIF RIVERA - SON - [phone] * Verbal permission to speak to the caregivers and representatives has been obtained from the patient. N/A * Community resources currently utilized None * Additional services required to return to the preadmission environment? No * Can the patient safely return to the preadmission environment? Yes * Has this patient been hospitalized within the prior 30 days at any hospital? No Patient Name: BLADIMIR RIVERA Page [id number] at 1538 All edits/amendments must be made on the electronic document DICTATION DATE: 03/24/18 1537 CRIBBER: DARREL 03/24/181536 RPT#: [id number] DC DATE: STATUS: ADM IN [facility] [address] [place] [address] END OF REPORT
--- NOTE | 2018-03-24 15:46 | MORECARE ---
CASE MANAGEMENT DISCHARGE SUMMARY PATIENT: BLADIMIR RIVERA UNIT: [id number] ADM DATE: 03/20/18 AGE: 82 : 33 SEX: M ROOM/BED: D.2310 AUTHOR: KENYADOC PHYSICIAN: REFERRING PHYSICIAN: GABRIELA YEE DO DATE OF SERVICE: 03/24/18 Discharge Plan Patient Name: BLADIMIR RIVERA Facility: [facility]:[place] : 1935 Planned Disposition: Home Anticipated Discharge Date: Discharge Date: Expected LOS: Initial Reviewer: [email or web address] Initial Review Date: 03/24/2018 Generated: 03/24/18 4:45 pm Comments DCP- Discharge Planning Updated by [email or web address]: Pura Knowles on 03/24/18 2:[address] Patient Name: BLADIMIR RIVERA Admission Status: ER Accout number: [id number] Admission Date: 03-20-2018 : 1935 Admission Diagnosis:NONINFECTIVE GASTROENTERITIS AND COLITIS, UNSPECIFIED Attending: GABRIELA YEE Current LOS: 4 Anticipated DC Date: Planned Disposition: Home Primary Insurance: MEDICARE A & B Discharge Planning Comments: CM met with patient at bedside. Patient states that his son has been staying with him (Naif) Patient states that he plans on returning to his home upon discharge. Patient denies any discharge needs at this time. CM will continue to follow and assist as needed with discharge planning / needs. Lacquer Coater: Pura Knowles DCPIA - Discharge Planning Initial Assessment Updated by [email or web address]: Pura Knowles on 03/24/18 3:37 pm * Is the patient Alert and Oriented? Yes * How many steps to enter\exit or inside your home? * PCP DR. UGARTE * Pharmacy [facility] * Preadmission Environment Home with Family * ADLs Independent * Other Equipment W/C, WALKER, SHOWER CHAIR * List name and contact numbers for known caregivers / representatives who currently or will assist patient after discharge: NAIF RIVERA - SON - [phone] * Verbal permission to speak to the caregivers and representatives has been obtained from the patient. N/A * Community resources currently utilized None * Additional services required to return to the preadmission environment? No * Can the patient safely return to the preadmission environment? Yes * Has this patient been hospitalized within the prior 30 days at any hospital? No Last DP export: 03/24/18 2:38 p Patient Name: BLADIMIR RIVERA Page [id number] at 1546 All edits/amendments must be made on the electronic document DICTATION DATE: 03/24/181544 DIRECTOR COUNCIL ON AGING: DARREL 03/24/181544 RPT#: [id number] DC DATE: STATUS: ADM IN [facility] [address] [place] [address] END OF REPORT
--- NOTE | 2018-03-24 17:00 | NUR ---
PT LYING IN BED, RIGHT GROIN INCISION SITE DRESSING CDI. NO SIGNS/SYMPTOMS OF PAIN OR DISCOMFORT NOTED AT THIS TIME.
[2018-03-24 18:06] LABS: HEMATOCRIT 29.9 % (42.0-54.0); HEMOGLOBIN 9.7 g/dL (13.5-17.5)
--- NOTE | 2018-03-24 19:10 | NUR ---
REPORT RECIEVED FROM DAY SHIFT. PATIENT LAYING IN BED AWAKE AND ALERT. ORIENTED X 4 . RT FEMORAL SHEATH DRSG C/D/I. VASOPRESSIN INFUSING 0.2 MCG. PATIENT DENIES ANY NEEDS OR PAIN. WILL CONTINUE WITH PLAN OF CARE. SR UP X 2 BED IN LOW POSITION CALL LIGHT IN REACH.
--- NOTE | 2018-03-24 23:42 | NUR ---
PATIENT LAYING IN BED ON BACK FLAT WITH EYES CLOSED AND BREATHING EVENLY.
[2018-03-25] VITALS (17 sets, daily range): BP systolic 108–130; BP diastolic 55–66
--- NOTE | 2018-03-25 02:54 | NUR ---
PATIENT RESTING WITH EYES CLOSED AND BREATHING EVENLY. PATIENT UNCHAGED. SR UP X 2 BED IN LOW POSITON AND CALL LIGHT IN REACH. WILL CONTINUE TO MONITOR.
[2018-03-25 04:29] LABS: BASOPHILS 0 % (0-2); EOSINOPHILS 0.2 % (0-7); HEMATOCRIT 27.1 % (42.0-54.0); HEMOGLOBIN 9.2 g/dL (13.5-17.5); IMMATURE GRANULOCYTES 0.2 % (0-5); LYMPHOCYTES 22.1 % (15-50); MCH 30.8 pg (26.0-34.0); MCHC 33.9 g/dL (31.0-37.0); MCV 90.6 fL (80.0-100.0); MEAN PLATELET VOLUME 9.8 fL (7.4-10.4); NEUTROPHILS 67.5 % (40-80); PLATELET COUNT 164 10x3/uL (130-400); RBC 2.99 10x6/uL (4.20-6.10); RDW 15.6 % (11.5-14.5); WBC 5.2 10x3/uL (4.8-10.8)
[2018-03-25 04:39] LABS: CALCIUM 7.1 mg/dL (8.5-10.1); CARBON DIOXIDE 24.9 mmol/L (21.0-32.0); CHLORIDE - SERUM 102 mmol/L (98-107); CREATININE - SERUM 0.9 mg/dL (0.6-1.3); POTASSIUM - SERUM 3.1 mmol/L (3.5-5.1); SODIUM 137 mmol/L (136-145); eGFR NON AFRICAN AMERICAN 85 mL/min (90-120)
[2018-03-25 04:41] LABS: CALC OSMOLALITY 283 mosm/kg (275-300); GLUCOSE 255 mg/dL (74-106); UREA NITROGEN 14 mg/dL (7-18)
--- NOTE | 2018-03-25 07:00 | NUR ---
SHIFT ASSESSMENT COMPLETED, PT CARE ASSUMED. MONITORS ON AND WORKING, VITALS STABLE. PT AWAKE AND ALERT, CALL LIGHT WITHIN REACH, WILL CONTINUE TO OBSERVE.
--- NOTE | 2018-03-25 09:00 | NUR ---
PT AWAKE AND ALERT, SCHRADER STAT LOCKED IN PLACE, RIGHT GROIN DRESSING CDI, NO SIGNS/SYMPTOMS OF SWELLING BLEEDING OR BRUISING. CALL LIGHT WITHIN REACH, WILL CONTINUE TO OBSERVE.
[2018-03-25 10:57] LABS: HEMATOCRIT 28.3 % (42.0-54.0); HEMOGLOBIN 9.5 g/dL (13.5-17.5)
--- NOTE | 2018-03-25 11:00 | NUR ---
PT CLEANED FROM BROWN BM, NO BLOODY STOOLS NOTED. NO CHANGES, VITALS STABLE. SEE FLOW SHEET FOR FURTHER DETAILS. CALL LIGHT WITHIN REACH.
--- NOTE | 2018-03-25 13:00 | NUR ---
FAMILY AT BEDSIDE, UPDATE PROVIDED, MONITORS ON AND WORKING. VITALS STABLE. ORDERS REC'D TO START PT ON CLEAR LIQUID DIET, CALL LIGHT WITHIN REACH, WILL CONTINUE TO OBSERVE.
--- NOTE | 2018-03-25 15:00 | NUR ---
PT AWAKE AND ALERT, NO SIGNS/SYMPTOMS OF PAIN OR DISCOMFORT NOTED. VASCULAR ACCESS NURSE AT BEDSIDE TO PLACE MIDLINE. SEE FLOW SHEET FOR FURTHER DETAILS.
--- NOTE | 2018-03-25 17:00 | NUR ---
PT TOLERATED CLEAR LIQUID DIET WELL, PT AWAKE AND ALERT, MONITORS ON AND WORKING, VITALS STABLE. FAMILY AT BEDSIDE, UPDATE PROVIDED. CALL LIGHT WITHIN REACH, WILL CONTINUE TO OBSERVE.
--- NOTE | 2018-03-25 19:15 | NUR ---
REPORT RECIEVED FROM DAY SHIFT. PATIENT IS LAYING IN BED ON BACK . PATIENT HAD MODERATE AMOUNT BROWN LIQUID STOOL WITH NO OBVIOUS BLOOD. BOTTOM AND COCCYX WITH REDDENED SKIN. PATIENT CLEANED AND BUTT PASTE APPLIED. BED AND LINEN CHANGED. PATIENT STABLE AND VITAL SIGNS GOOD. PATIENT DENIES ANY NEEDS OR PAIN. WILL CONTINUE TO MONITOR CLOSELY.
[2018-03-25 19:41] LABS: HEMATOCRIT 25.8 % (42.0-54.0); HEMOGLOBIN 8.7 g/dL (13.5-17.5)
[2018-03-26] VITALS (23 sets, daily range): BP systolic 92–126; BP diastolic 56–81
--- NOTE | 2018-03-26 00:03 | NUR ---
PATIENT LAYING IN BED WITH EYES CLOSED AND BREATHING EVENLY. VITAL SIGNS ARE STABLE AND UNCHANGED. WILL CONTINUE TO MONITOR. REASSESMENT COMPLETED. SR UP X 2 BED IN LOW POSITON AND CALL LIGHT IN REACH.
--- NOTE | 2018-03-26 03:10 | NUR ---
PATIENT HAD SM BROWN LIQUID STOOL. GAVE PATIENT BATH AND CHANGED LINEN. REASSESMENT COMPLETED. WILL CONTINUE TO MONITOR.
[2018-03-26 05:02] LABS: BASOPHILS 0.1 % (0-2); EOSINOPHILS 0.7 % (0-7); HEMATOCRIT 27.8 % (42.0-54.0); HEMOGLOBIN 9.2 g/dL (13.5-17.5); IMMATURE GRANULOCYTES 0.3 % (0-5); LYMPHOCYTES 18.7 % (15-50); MCH 30.7 pg (26.0-34.0); MCHC 33.1 g/dL (31.0-37.0); MEAN PLATELET VOLUME 9.8 fL (7.4-10.4); MONOCYTES 10.3 % (2-11); NEUTROPHILS 69.9 % (40-80); RDW 15.6 % (11.5-14.5)
[2018-03-26 05:07] LABS: MCV 92.7 fL (80.0-100.0); PLATELET COUNT 131 10x3/uL (130-400); WBC 6.7 10x3/uL (4.8-10.8)
[2018-03-26 05:31] LABS: CALC OSMOLALITY 281 mosm/kg (275-300); CALCIUM 7.3 mg/dL (8.5-10.1); CARBON DIOXIDE 24.5 mmol/L (21.0-32.0); CHLORIDE - SERUM 105 mmol/L (98-107); CREATININE - SERUM 0.9 mg/dL (0.6-1.3); GLUCOSE 153 mg/dL (74-106); POTASSIUM - SERUM 3.7 mmol/L (3.5-5.1); SODIUM 138 mmol/L (136-145); UREA NITROGEN 21 mg/dL (7-18); eGFR NON AFRICAN AMERICAN 85 mL/min (90-120)
--- NOTE | 2018-03-26 06:50 | NUR ---
PATIENT AWAKE . PATIENT IS UNCHANGED. DENIES ANY NEEDS OR PAIN. WILL GIVE REPORT TO DAY SHIFT.
--- NOTE | 2018-03-26 08:06 | NUR ---
PT RESTING IN BED. AROUSED BY VERBAL STIMULI. LEG STRAIGHT. PEDAL PULSE NOTED.NO S/S OF ACUTE DISTRESS.
--- NOTE | 2018-03-26 09:24 | NUR ---
NUTRITION F/U CLEAR LIQUID DIET STARTED. WILL MONITOR DIET ADVANCEMENT, PT PROGRESS. RD FOLLOWING
--- NOTE | 2018-03-26 10:35 | NUR ---
PT RESTING. CHEST RISING AND FALLING. PRBC INFUSING. NO SOB, FEVER, OR S/S OF ACUTE DISTRESS. ASSITED PT WITH CHICKEN BROTH AND JELLO. PT ATE ALL OF JELLO AND 1/2 OF CHICKEN BROTH. NO S/S OF ACUTE DISTRESS. CL IN PLACE.
--- NOTE | 2018-03-26 12:47 | NUR ---
AAOX4. CHANGED PT. SMALL RED BROWN PASTY STOOL NOTED. BEAUDREAS APPLIED TO BOTTOM. NO S/S OF ACUTE DISTRESS. CL IN PLACE.
--- NOTE | 2018-03-26 13:51 | NUR ---
EDUCATED PT TO COUGH AND DEEP BREATH. GAVE SIMETHICONE ORDERED PER MD FOR GAS PAIN. NO S/S OF ACUTE DISTRESS. CL IN PLACE.
[2018-03-26 16:13] LABS: HEMATOCRIT 30.4 % (42.0-54.0); HEMOGLOBIN 10.2 g/dL (13.5-17.5)
--- NOTE | 2018-03-26 17:03 | NUR ---
PT RESTING IN BED. SON AT BEDSIDE. STARTED PROCALMINE PER MD ORDER. DENIES GAS AT THIS TIME.NO S/S OF ACUTE DISTRESS. CL IN PLACE. SON IN VISITING AT BEDSIDE.
--- NOTE | 2018-03-26 18:54 | NUR ---
CLEANED PT. CHANGED BED LINENS PERFORMED NOREEN CARE. 1 SMALL RED BROWN PASTY STOOL NOTED. BARRIER CREAM APPLIED. PLACED PILLOW UNDER L SIDE. TURNED. NO S/S OF ACUTE DISTRESS. CL IN PLACE.
--- NOTE | 2018-03-26 19:27 | NUR ---
REPORT RECEIVED, CARE ASSUMED. INITIAL ASSESSMENT COMPLETED, SEE FLOWSHEET. PT IS RESTING IN BED AT THIS TIME WITH EYES CLOSED. NO NEEDS NOTED. NO SIGNS OF ACUTE DISTRESS. WILL CONTINUE TO MONITOR.
--- NOTE | 2018-03-26 21:27 | NUR ---
PT LAYING IN BED WITH EYES CLOSED. DENIES NEEDS AT THIS TIME. NO SIGNS OF ACUTE DISTRESS. WILL CONTINUE TO MONITOR.
--- NOTE | 2018-03-26 23:24 | NUR ---
REASSESSMENT COMPLETED, SEE FLOWSHEET. NO ACUTE CHANGES NOTED. NO SIGNS OF ACUTE DISTRESS. WILL CONTINUE TO MONITOR.
[2018-03-27] VITALS (24 sets, daily range): BP systolic 115–145; BP diastolic 64–85
--- NOTE | 2018-03-27 01:24 | NUR ---
PT IS LAYING IN BED WITH EYES CLOSED AT THIS TIME. NO SIGNS OF ACUTE DISTRESS. WILL CONTINUE TO MONITOR.
--- NOTE | 2018-03-27 03:25 | NUR ---
REASSESSMENT COMPLETED, SEE FLOWSHEET. NO ACUTE CHANGES NOTED. NO SIGNS OF ACUTE DISTRESS. WILL CONTINUE TO MONITOR.
[2018-03-27 04:04] LABS: BASOPHILS 0.1 % (0-2); EOSINOPHILS 0.9 % (0-7); HEMATOCRIT 31.6 % (42.0-54.0); HEMOGLOBIN 10.5 g/dL (13.5-17.5); IMMATURE GRANULOCYTES 0.4 % (0-5); LYMPHOCYTES 16.4 % (15-50); MCH 30.3 pg (26.0-34.0); MCHC 33.2 g/dL (31.0-37.0); MCV 91.1 fL (80.0-100.0); MEAN PLATELET VOLUME 10.2 fL (7.4-10.4); MONOCYTES 10.2 % (2-11); PLATELET COUNT 111 10x3/uL (130-400); RBC 3.47 10x6/uL (4.20-6.10)
[2018-03-27 04:22] LABS: ALBUMIN 2.2 g/dL (3.4-5.0); ALKALINE PHOSPHATASE 43 U/L (46-116); ALT (SGPT) 19 U/L (10-68); BILIRUBIN - TOTAL 0.55 mg/dL (0.2-1.3); CALCIUM 7.6 mg/dL (8.5-10.1); CARBON DIOXIDE 21.3 mmol/L (21.0-32.0); CHLORIDE - SERUM 107 mmol/L (98-107); PROTEIN - SERUM 4.8 g/dL (6.4-8.2); SODIUM 141 mmol/L (136-145); UREA NITROGEN 20 mg/dL (7-18); eGFR NON AFRICAN AMERICAN 76 mL/min (90-120)
[2018-03-27 04:23] LABS: CALC OSMOLALITY 282 mosm/kg (275-300); GLUCOSE 86 mg/dL (74-106)
--- NOTE | 2018-03-27 05:25 | NUR ---
PT RESTING IN BED WITH EYES CLOSED. NO SIGNS OF ACUTE DISTRESS. AM LABS REVIEWED AND ELECTROLYTE PROTOCOL FOLLOWED. WILL CONTINUE TO MONITOR.
--- NOTE | 2018-03-27 19:25 | NUR ---
REPORT RECEIVED, CARE ASSUMED. INITIAL ASSESSMENT COMPLETED. NO SIGNS OF BLEEDING. SPOKE WITH DR SHAH REGARDING MOVING PT TO MED SURG, HE SAID THAT THIS WOULD BE FINE. WAITING CASTING WHEEL OPERATOR BACK FROM OTHER PHYSICANS ON THE PATIENTS CASE. NO SIGNS OF ACUTE DISTRESS. WILL CONTINUE TO MONITOR.
--- NOTE | 2018-03-27 21:20 | NUR ---
PT RESTING IN BED AT THIS TIME. NO SIGNS OF ACUTE DISTRESS. NO NEEDS NOTED. WILL CONTINUE TO MONITOR.
--- NOTE | 2018-03-27 23:21 | NUR ---
REASSESSMENT COMPLETED, SEE FLOWSHEET. NO ACUTE CHANGES NOTED. NO SIGNS OF ACUTE DISTRESS. WILL CONTINUE TO MONITOR.
[2018-03-28] VITALS (10 sets, daily range): BP systolic 115–166; BP diastolic 58–79
--- NOTE | 2018-03-28 01:15 | NUR ---
PT RESTING IN BED WITH EYES CLOSED. NO CHANGES NOTED. NO NEEDS VOICED. PT REPOSITIONED FOR COMFORT. NO SIGNS OF ACUTE DISTRESS. WILL CONTINUE TO MONITOR.
--- NOTE | 2018-03-28 03:15 | NUR ---
REASSESSMENT COMPLETED, SEE FLOWSHEET. PT REPOSITIONED FOR COMFORT. NO SIGNS OF ACUTE DISTRESS. WILL CONTINUE TO MONITOR.
[2018-03-28 04:09] LABS: BASOPHILS 0.3 % (0-2); EOSINOPHILS 0.8 % (0-7); HEMATOCRIT 31.1 % (42.0-54.0); HEMOGLOBIN 10.5 g/dL (13.5-17.5); IMMATURE GRANULOCYTES 0.4 % (0-5); LYMPHOCYTES 23.5 % (15-50); MCH 30.4 pg (26.0-34.0); MCHC 33.8 g/dL (31.0-37.0); MCV 90.1 fL (80.0-100.0); PLATELET COUNT 106 10x3/uL (130-400); RBC 3.45 10x6/uL (4.20-6.10); RDW 16.3 % (11.5-14.5); WBC 7.4 10x3/uL (4.8-10.8)
[2018-03-28 04:20] LABS: ALBUMIN 2.1 g/dL (3.4-5.0); ALKALINE PHOSPHATASE 47 U/L (46-116); BILIRUBIN - TOTAL 0.56 mg/dL (0.2-1.3); CALCIUM 7.3 mg/dL (8.5-10.1); CARBON DIOXIDE 25.5 mmol/L (21.0-32.0); CHLORIDE - SERUM 106 mmol/L (98-107); MAGNESIUM - SERUM 1.7 mg/dL (1.8-2.4); POTASSIUM - SERUM 3.3 mmol/L (3.5-5.1); PROTEIN - SERUM 4.7 g/dL (6.4-8.2); SODIUM 138 mmol/L (136-145); UREA NITROGEN 18 mg/dL (7-18); eGFR NON AFRICAN AMERICAN 76 mL/min (90-120)
[2018-03-28 04:29] LABS: ALT (SGPT) 29 U/L (10-68); CALC OSMOLALITY 280 mosm/kg (275-300); GLUCOSE 144 mg/dL (74-106)
--- NOTE | 2018-03-28 05:15 | NUR ---
PT REPOSITIONED FOR COMFORT. NO SIGNS OF ACUTE DISTRESS. WILL CONTINUE TO MONITOR.
--- NOTE | 2018-03-28 08:48 | NUR ---
PATIENT RESTING. PULLED UP IN BED. BREAKFAST EATEN. CO PAIN IN LOWER MID ABDOMEN
--- NOTE | 2018-03-28 09:55 | NUR ---
FAMILY IN ROOM. NO NEEDS AT THIS TIME. REQUESTS SOMETHING TO HAVE A BM. I EXPLAINED WE HAVE GOLYTELY ON THE SCHEDULE FOR 1300 AND THAT WILL HELP CLEAN HIM OUT. NO FURTHER NEEDS AT THIS TIME
--- NOTE | 2018-03-28 10:19 | NUR ---
PATIENT RESTING. NO NEEDS AT THIS TIME
--- NOTE | 2018-03-28 11:19 | NUR ---
PATIENT IN CHAIR. PT SAYS SELF TRANSFER. STAND BY FOR ASSISTANCE IF NEEDED. NO NEEDS AT THIS TIME
--- NOTE | 2018-03-28 12:12 | NUR ---
PATIENT IN CHAIR. BED MADE. EATING LUNCH. NO NEEDS AT THIS TIME
--- NOTE | 2018-03-28 12:27 | NUR ---
FAMILY IN ROOM. NO NEEDS AT THIS TIME
--- NOTE | 2018-03-28 13:30 | NUR ---
PT TO THE FLOOR VIA WHELLCHAIR AND HOSPITAL STAFF.
--- NOTE | 2018-03-28 19:23 | NUR ---
RECEIVED REPORT,WILL ASSUME CARE OF PT, PT IS UP TO BSC, CALL LIGHT IN REACH, WILL CONTINUE PLAN OF CARE
--- NOTE | 2018-03-28 21:00 | NUR ---
[id number], DIDNT COVER, PT WILL BE NPO AFTER MIDNIGHT
[2018-03-29 04:30] VITALS: BP 142/65
--- NOTE | 2018-03-29 05:00 | NUR ---
PT RESTING IN BED WITH NO DISTRESS. RESPS EVEN/NONLABORED. MONITOR AND CPOC. CALL LIGHT IN REACH. NO NEEDS AT THIS TIME.
--- NOTE | 2018-03-29 07:23 | NUR ---
CALLED LAB AND THEY STATED THEY TRIED SEVERAL TIME TO DRAW AND WERE UNALE TO GET ANY BLOOD FOR AM LABS.
[2018-03-29 07:53] LABS: CALC OSMOLALITY 276 mosm/kg (275-300); CALCIUM 7.1 mg/dL (8.5-10.1); CARBON DIOXIDE 20.7 mmol/L (21.0-32.0); CHLORIDE - SERUM 105 mmol/L (98-107); CREATININE - SERUM 0.7 mg/dL (0.6-1.3); GLUCOSE 161 mg/dL (74-106); POTASSIUM - SERUM 4.4 mmol/L (3.5-5.1); SODIUM 137 mmol/L (136-145); UREA NITROGEN 12 mg/dL (7-18); eGFR NON AFRICAN AMERICAN > 90 mL/min (90-120)
--- NOTE | 2018-03-29 08:03 | NUR ---
PT LEFT FLOOR FOR HIS COLONOSCOPY VIA BED AND HOSPITAL PERSONS.
--- NOTE | 2018-03-29 10:50 | NUR ---
RESTS IN BED WITH EYES CLOSED. SCHRADER INTACT. CALL LIGHT IN REACH.
[2018-03-29 10:58] LABS: BASOPHILS 0.4 % (0-2); EOSINOPHILS 1.1 % (0-7); HEMOGLOBIN 10.7 g/dL (13.5-17.5); IMMATURE GRANULOCYTES 0.6 % (0-5); MCH 30.5 pg (26.0-34.0); MCHC 33.4 g/dL (31.0-37.0); MCV 91.2 fL (80.0-100.0); MEAN PLATELET VOLUME 10.6 fL (7.4-10.4); MONOCYTES 10.9 % (2-11); PLATELET COUNT 102 10x3/uL (130-400); RBC 3.51 10x6/uL (4.20-6.10); RDW 16.3 % (11.5-14.5)
[2018-03-29 10:59] LABS: WBC 9.3 10x3/uL (4.8-10.8)
--- NOTE | 2018-03-29 19:30 | NUR ---
RECEIVED REPORT, WILL ASSUME CARE OF PT, PT IS SLEEPING, BED IS LOW, SRX2, CALL LIGHT IN REACH, WILL CONTINUE PLAN OF CARE
[2018-03-29 20:30] VITALS: BP 139/61
--- NOTE | 2018-03-29 21:00 | NUR ---
[id number] 2 UNITS HUMULIN R
[2018-03-30 04:30] VITALS: BP 124/64
--- NOTE | 2018-03-30 05:00 | NUR ---
PT RESTING IN BED WITH NO DISTRESS. RESPS EVEN/NONLABORED. CALL LIGHT IN REACH. MONITOR AND CPOC.
[2018-03-30 05:56] LABS: BASOPHILS 0.4 % (0-2); EOSINOPHILS 0 % (0-7); HEMATOCRIT 33.7 % (42.0-54.0); HEMOGLOBIN 11.1 g/dL (13.5-17.5); IMMATURE GRANULOCYTES 0.6 % (0-5); LYMPHOCYTES 19.9 % (15-50); MCH 30.7 pg (26.0-34.0); MCHC 32.9 g/dL (31.0-37.0); MCV 93.1 fL (80.0-100.0); MEAN PLATELET VOLUME 10.5 fL (7.4-10.4); MONOCYTES 7.6 % (2-11); NEUTROPHILS 71.5 % (40-80); PLATELET COUNT 119 10x3/uL (130-400); RBC 3.62 10x6/uL (4.20-6.10); RDW 16.6 % (11.5-14.5); WBC 8.3 10x3/uL (4.8-10.8)
[2018-03-30 06:05] LABS: CALCIUM 7.4 mg/dL (8.5-10.1); CHLORIDE - SERUM 105 mmol/L (98-107); CREATININE - SERUM 0.8 mg/dL (0.6-1.3); SODIUM 140 mmol/L (136-145); UREA NITROGEN 12 mg/dL (7-18); eGFR NON AFRICAN AMERICAN > 90 mL/min (90-120)
[2018-03-30 06:12] LABS: CALC OSMOLALITY 279 mosm/kg (275-300); CARBON DIOXIDE 27.9 mmol/L (21.0-32.0); GLUCOSE 108 mg/dL (74-106); POTASSIUM - SERUM 3.6 mmol/L (3.5-5.1)
--- NOTE | 2018-03-30 07:38 | NUR ---
REPORT RECEIVED. WILL CONTINUE WITH POC. PT CURRENTLY LYING SEMI FOWLERS. CALL LIGHT W/I REACH. RR EVEN AND UNLABORED ON RA. SCHRADER IN PLACE. R.UPPER MIDLINE IS SALINE LOCKED. PT IS AAO AND UP WITH ASSIST. PT DENIES ANY NEEDS AT THIS TIME. WILL CTM.
[2018-03-30] MEDS ORDERED: CARDIZEM SR60 MG PO ×2 (07:46→07:47)
[2018-03-30] MEDS ORDERED: GLUCOPHAGE500 MG PO (07:48)
--- NOTE | 2018-03-30 07:57 | NUR ---
RECEIVED ORDERS TO DC SCHRADER. REMOVED 8ML OF FLUID IN BULB AND PULLED SCHRADER. TOTAL OUTPUT OF 275 CLEAR YELLOW URINE RECORDED. NO DRAINAGE PRESENT. PT CURRENTLY USING URINAL TO FREELY VOID.
[2018-03-30 10:14] VITALS: BP 102/57
--- NOTE | 2018-03-30 10:57 | MORECARE ---
CASE MANAGEMENT DISCHARGE SUMMARY PATIENT: BLADIMIR RIVERA UNIT: [id number] ADM DATE: 03/20/18 AGE: 82 : 33 SEX: M ROOM/BED: D.2134 AUTHOR: KENYADOC PHYSICIAN: REFERRING PHYSICIAN: GABRIELA YEE DO DATE OF SERVICE: 03/30/18 Discharge Plan Patient Name: BLADIMIR RIVERA Facility: [facility]:[place] : 1935 Planned Disposition: Home Anticipated Discharge Date: Discharge Date: Expected LOS: Initial Reviewer: [email or web address] Initial Review Date: 03/24/2018 Generated: 03/30/18 11:57 am Comments DCP- Discharge Planning Updated by [id number]: Pura Knowles on 03/24/18 2:[address] Patient Name: BLADIMIR RIVERA Admission Status: ER Accout number: [id number] Admission Date: 03-20-2018 : 1935 Admission Diagnosis:NONINFECTIVE GASTROENTERITIS AND COLITIS, UNSPECIFIED Attending: GABRIELA YEE Current LOS: 4 Anticipated DC Date: Planned Disposition: Home Primary Insurance: MEDICARE A & B Discharge Planning Comments: CM met with patient at bedside. Patient states that his son has been staying with him (Naif) Patient states that he plans on returning to his home upon discharge. Patient denies any discharge needs at this time. CM will continue to follow and assist as needed with discharge planning / needs. Beam Builder: Pura Knowles DCPIA - Discharge Planning Initial Assessment Updated by [id number]: Pura Knowles on 03/24/18 3:37 pm * Is the patient Alert and Oriented? Yes * How many steps to enter\exit or inside your home? * PCP DR. UGARTE * Pharmacy [facility] * Preadmission Environment Home with Family * ADLs Independent * Other Equipment W/C, WALKER, SHOWER CHAIR * List name and contact numbers for known caregivers / representatives who currently or will assist patient after discharge: NAIF RIVERA - SON - [phone] * Verbal permission to speak to the caregivers and representatives has been obtained from the patient. N/A * Community resources currently utilized None * Additional services required to return to the preadmission environment? No * Can the patient safely return to the preadmission environment? Yes * Has this patient been hospitalized within the prior 30 days at any hospital? No External Providers External Provider: [facility] Next Contact Date: 03/30/2018 Service Request Date: Service Type: Resolution: Reviewer: Comments: Last DP export: 03/24/18 2:45 p Patient Name: BLADIMIR RIVERA Page [id number] at 1057 All edits/amendments must be made on the electronic document DICTATION DATE: 03/30/181056 IT SECURITY MANAGER: DARREL 03/30/18 1057 RPT#: [id number] DC DATE: STATUS: ADM IN [facility] [address] [place] [address] END OF REPORT
--- NOTE | 2018-03-30 11:05 | MORECARE ---
CASE MANAGEMENT DISCHARGE SUMMARY PATIENT: BLADIMIR RIVERA UNIT: [id number] ADM DATE: 03/20/18 AGE: 82 : 33 SEX: M ROOM/BED: D.2134 AUTHOR: KENYA,DOC PHYSICIAN: REFERRING PHYSICIAN: GABRIELA YEE DO DATE OF SERVICE: 03/30/18 Discharge Plan Patient Name: BLADIMIR RIVERA Facility: [facility]:[place] : 1935 Planned Disposition: Inpatient Rehab Anticipated Discharge Date: 03/30/18 Discharge Date: Expected LOS: 10 Initial Reviewer: [id number] Initial Review Date: 03/24/2018 Generated: 03/30/18 12:05 pm Comments DCP- Discharge Planning Updated by [id number]: Pura Knowles on 03/24/18 2:[address] Patient Name: BLADIMIR RIVERA Admission Status: ER Accout number: [id number] Admission Date: 03-20-2018 : 1935 Admission Diagnosis:NONINFECTIVE GASTROENTERITIS AND COLITIS, UNSPECIFIED Attending: GABRIELA YEE Current LOS: 4 Anticipated DC Date: Planned Disposition: Home Primary Insurance: MEDICARE A & B Discharge Planning Comments: CM met with patient at bedside. Patient states that his son has been staying with him (Naif) Patient states that he plans on returning to his home upon discharge. Patient denies any discharge needs at this time. CM will continue to follow and assist as needed with discharge planning / needs. Poster: Pura Knowles DCPIA - Discharge Planning Initial Assessment Updated by [id number]: Pura Knowles on 03/24/18 3:37 pm * Is the patient Alert and Oriented? Yes * How many steps to enter\exit or inside your home? * PCP DR. UGARTE * Pharmacy [facility] * Preadmission Environment Home with Family * ADLs Independent * Other Equipment W/C, WALKER, SHOWER CHAIR * List name and contact numbers for known caregivers / representatives who currently or will assist patient after discharge: NAIF RIVERA - SON - [phone] * Verbal permission to speak to the caregivers and representatives has been obtained from the patient. N/A * Community resources currently utilized None * Additional services required to return to the preadmission environment? No * Can the patient safely return to the preadmission environment? Yes * Has this patient been hospitalized within the prior 30 days at any hospital? No Coverage Notice Reviewer: [id number] Haseeb Rooney Notice Issued Date-Time: 03/30/2018 10:50 Notice Type: Patient Choice Letter Notice Delivered To: Patient Relationship to Patient: Supervisor Inspection And Testing Name: Delivery Method: HAND - Hand Delivered Ivonne Days: Prior Verbal Notification: Recipient Understood Notice: Yes Recipient Signature: Yes Med Rec Note Co-signed by Attending: Coverage Notice Comment: 1 - inpt at [facility] 2-[facility] 3- [facility] Reviewer: [id number] Haseeb Rooney Notice Issued Date-Time: 03/30/2018 10:50 Notice Type: IM Discharge Notice Notice Delivered To: Patient Relationship to Patient: Supervisor Inspection And Testing Name: Delivery Method: HAND - Hand Delivered Ivonne Days: Prior Verbal Notification: Recipient Understood Notice: Yes Recipient Signature: Yes Med Rec Note Co-signed by Attending: Coverage Notice Comment: Last DP export: 03/30/18 9:57 a Patient Name: BLADIMIR RIVERA Page [id number] at 1105 All edits/amendments must be made on the electronic document DICTATION DATE: 03/30/181104 RESEARCH SOIL SCIENTIST: DARREL 03/30/18 110 RPT#: [id number] DC DATE: STATUS: ADM IN [facility] [address] [place] [address] END OF REPORT
--- NOTE | 2018-03-30 11:46 | MORECARE ---
CASE MANAGEMENT DISCHARGE SUMMARY PATIENT: BLADIMIR RIVERA UNIT: [id number] ADM DATE: 03/20/18 AGE: 82 : 33 SEX: M ROOM/BED: D.2134 AUTHOR: KENYADOC PHYSICIAN: REFERRING PHYSICIAN: GABRIELA YEE DO DATE OF SERVICE: 03/30/18 Discharge Plan Patient Name: BLADIMIR RIVERA Facility: [facility]:[place] : 1935 Planned Disposition: Inpatient Rehab Anticipated Discharge Date: 03/30/18 Discharge Date: Expected LOS: 10 Initial Reviewer: [email or web address] Initial Review Date: 03/24/2018 Generated: 03/30/18 12:46 pm Comments DCP- Discharge Planning Updated by [id number]: Sav Rooney on 03/30/18 10:[address] Patient Name: BLADIMIR RIVERA Encounter No: [id number] : 1935 Primary Insurance: MEDICARE A & B Anticipated DC Date: 03-30-2018 Planned Disposition: Inpatient Rehab External Planned Provider: [facility] DCP follow-up note: BEDSIDE NURSE INFORMED CM THAT PT SAYS HE IS TOO WEAK TO GO HOME. CM MET WITH PT IN ROOM WHO REPORTS HIS SON STAYS AT HOME WITH HIM BUT PT IS TOO WEAK TO GO HOME AND WANTS REHAB BEFORE GOING HOME. PT REPORTS HE STAYED HERE FOR REHAB LAST YEAR AND ASKED ABOUT INPATIENT REHAB, CM EXPLAINED THAT PT MAY NOT BE ACCEPTED FOR INPATIENT AND DISCUSSED SENIOR CARE FACILITY OPTIONS. PT ASKED CM CALL HIS SON, NAIF. CM CALLED NAIF RIVERA, , HE REPORTS FIRST CHOICE IS [facility], SECOND CHOICE IS [facility] AND THIRD CHOICE WOULD BE [facility]. CHOICE COMPLETED, IMPORTANT MESSAGE FROM MEDICARE PROVIDED AND EXPLAINED. CM CALLED AND SPOKE TO DR. UGARTE NURSE, JACK; DR. UGARTE PROVIDED ORDER FOR INPATIENT REHAB PRESCREEN OR SENIOR CARE FOR DISCHARGE TODAY. CM CALLED [facility] AT [facility], NOTIFIED OF SENIOR CARE REFERRAL, . FAXED REFERRAL TO [facility] AT [phone]. CM SPOKE TO NORMA OF INPATIENT REHAB AT [facility] WHO SPOKE TO PT AND COMPLETED SCREENING. NORMA NOTIFIED CM THAT THEY WILL ACCEPT PT TO DAY FOR INPATIENT REHAB. CM NOTIFIED PT, PT'S SON VIA PHONE AND DR. UGARTE NURSE JACK. [facility] TO CONTACT MED 2 NURSE WITH ROOM NUMBER WHEN READY TO ACCEPT PT AND NURSE REPORT. Sav Rooney, CASE MANAGEMENT DCP- Discharge Planning Updated by [id number]: Pura Dingr on 03/24/18 2:[address] Patient Name: BLADIMIR RIVERA Admission Status: ER Accout number: [id number] Admission Date: 03-20-2018 : 1935 Admission Diagnosis:NONINFECTIVE GASTROENTERITIS AND COLITIS, UNSPECIFIED Attending: GABRIELA YEE Current LOS: 4 Anticipated DC Date: Planned Disposition: Home Primary Insurance: MEDICARE A & B Discharge Planning Comments: CM met with patient at bedside. Patient states that his son has been staying with him (Naif) Patient states that he plans on returning to his home upon discharge. Patient denies any discharge needs at this time. CM will continue to follow and assist as needed with discharge planning / needs. Copy Holder: Pura Knowles DCPIA - Discharge Planning Initial Assessment Updated by [id number]: Pura Knowles on 03/24/18 3:37 pm * Is the patient Alert and Oriented? Yes * How many steps to enter\exit or inside your home? * PCP DR. UGARTE * Pharmacy [facility] * Preadmission Environment Home with Family * ADLs Independent * Other Equipment W/C, WALKER, SHOWER CHAIR * List name and contact numbers for known caregivers / representatives who currently or will assist patient after discharge: NAIF RIVERA - SON - [phone] * Verbal permission to speak to the caregivers and representatives has been obtained from the patient. N/A * Community resources currently utilized None * Additional services required to return to the preadmission environment? No * Can the patient safely return to the preadmission environment? Yes * Has this patient been hospitalized within the prior 30 days at any hospital? No Coverage Notice Reviewer: [id number] - Sav Rooney Notice Issued Date-Time: 03/30/2018 10:50 Notice Type: Patient Choice Letter Notice Delivered To: Patient Relationship to Patient: Manager Sound Name: Delivery Method: HAND - Hand Delivered Ivonne Days: Prior Verbal Notification: Recipient Understood Notice: Yes Recipient Signature: Yes Med Rec Note Co-signed by Attending: Coverage Notice Comment: 1 - inpt at [facility] 2-[facility] 3- [facility] Reviewer: [id number] - Sav Rooney Notice Issued Date-Time: 03/30/2018 10:50 Notice Type: IM Discharge Notice Notice Delivered To: Patient Relationship to Patient: Manager Sound Name: Delivery Method: HAND - Hand Delivered Ivonne Days: Prior Verbal Notification: Recipient Understood Notice: Yes Recipient Signature: Yes Med Rec Note Co-signed by Attending: Coverage Notice Comment: Last DP export: 03/30/18 10:05 a Patient Name: BLADIMIR RIVERA Page 86855 at 1146 All edits/amendments must be made on the electronic document DICTATION DATE: 03/30/18 1146 MATH SPECIALIST: DARREL 03/30/18 1146 RPT#: [id number] DC DATE: STATUS: ADM IN [facility] [address] [place] [address] END OF REPORT
--- NOTE | 2018-03-30 11:47 | NUR ---
Rehab Prescreening Consult recieved and the patient has been visited. He meets IRF criteria and is agreeable to participate in the required therapy. He will be accepted today if the physician agrees. Discussed with the CM Manfred Rooney. Rosalina Wolf RN Clinical Liaison, Rehab
--- NOTE | 2018-03-30 12:18 | MORECARE ---
CASE MANAGEMENT DISCHARGE SUMMARY PATIENT: BLADIMIR RIVERA UNIT: [id number] ADM DATE: 03/20/18 AGE: 82 : [birth year] SEX: M ROOM/BED: D.2134 AUTHOR: KENYADOC PHYSICIAN: REFERRING PHYSICIAN: GABRIELA YEE DO DATE OF SERVICE: 03/30/18 Discharge Plan Patient Name: BLADIMIR RIVERA Facility: [facility]:[place] : 1935 Planned Disposition: Inpatient Rehab Anticipated Discharge Date: 03/30/18 Discharge Date: Expected LOS: 10 Initial Reviewer: [id number] Initial Review Date: 03/24/2018 Generated: 03/30/18 1:18 pm Comments DCP- Discharge Planning Updated by [id number]: Sav Rooney on 03/30/18 10:[address] Patient Name: BLADIMIR RIVERA Encounter No: [id number] : 1935 Primary Insurance: MEDICARE A & B Anticipated DC Date: 03-30-2018 Planned Disposition: Inpatient Rehab External Planned Provider: [facility] INPATIENT REHAB DCP follow-up note: BEDSIDE NURSE INFORMED CM THAT PT SAYS HE IS TOO WEAK TO GO HOME. CM MET WITH PT IN ROOM WHO REPORTS HIS SON STAYS AT HOME WITH HIM BUT PT IS TOO WEAK TO GO HOME AND WANTS REHAB BEFORE GOING HOME. PT REPORTS HE STAYED HERE FOR REHAB LAST YEAR AND ASKED ABOUT INPATIENT REHAB, CM EXPLAINED THAT PT MAY NOT BE ACCEPTED FOR INPATIENT AND DISCUSSED FPC FACILITY OPTIONS. PT ASKED CM CALL HIS SON, NAIF. CM CALLED NAIF RIVERA, , HE REPORTS FIRST CHOICE IS [facility], SECOND CHOICE IS [facility] AND THIRD CHOICE WOULD BE [facility]. CHOICE COMPLETED, IMPORTANT MESSAGE FROM MEDICARE PROVIDED AND EXPLAINED. CM CALLED AND SPOKE TO DR. UGARTE NURSE, JACK; DR. UGARTE PROVIDED ORDER FOR INPATIENT REHAB PRESCREEN OR [facility]PC FOR DISCHARGE TODAY. CM CALLED CLINTON AT [facility], NOTIFIED OF FPC REFERRAL, . FAXED REFERRAL TO [facility] AT [phone]. CM SPOKE TO NORMA OF INPATIENT REHAB AT [facility] WHO SPOKE TO PT AND COMPLETED SCREENING. NORMA NOTIFIED CM THAT THEY WILL ACCEPT PT TO DAY FOR INPATIENT REHAB. CM NOTIFIED PT, PT'S SON VIA PHONE AND DR. UGARTE NURSE JACK. [facility] INPATIENT REHAB TO CONTACT MED 2 NURSE WITH ROOM NUMBER WHEN READY TO ACCEPT PT AND NURSE REPORT. Sav Rooney, CASE MANAGEMENT DCP- Discharge Planning Updated by [id number]: Pura Dingr on 03/24/18 2:[address] Patient Name: BLADIMIR RIVERA Admission Status: ER Accout number: [id number] Admission Date: 03-20-2018 : 1935 Admission Diagnosis:NONINFECTIVE GASTROENTERITIS AND COLITIS, UNSPECIFIED Attending: GABRIELA YEE Current LOS: 4 Anticipated DC Date: Planned Disposition: Home Primary Insurance: MEDICARE A & B Discharge Planning Comments: CM met with patient at bedside. Patient states that his son has been staying with him (Naif) Patient states that he plans on returning to his home upon discharge. Patient denies any discharge needs at this time. CM will continue to follow and assist as needed with discharge planning / needs. Excel Specialist: Pura Knowles DCPIA - Discharge Planning Initial Assessment Updated by [email or web address]: Pura Knowles on 03/24/18 3:37 pm * Is the patient Alert and Oriented? Yes * How many steps to enter\exit or inside your home? * PCP DR. UGARTE * Pharmacy [facility] * Preadmission Environment Home with Family * ADLs Independent * Other Equipment W/C, WALKER, SHOWER CHAIR * List name and contact numbers for known caregivers / representatives who currently or will assist patient after discharge: NAIF RIVERA - SON - [phone] * Verbal permission to speak to the caregivers and representatives has been obtained from the patient. N/A * Community resources currently utilized None * Additional services required to return to the preadmission environment? No * Can the patient safely return to the preadmission environment? Yes * Has this patient been hospitalized within the prior 30 days at any hospital? No Coverage Notice Reviewer: [id number] - Sav Rooney Notice Issued Date-Time: 03/30/2018 10:50 Notice Type: Patient Choice Letter Notice Delivered To: Patient Relationship to Patient: Geotechnical Department Manager Name: Delivery Method: HAND - Hand Delivered Ivonne Days: Prior Verbal Notification: Recipient Understood Notice: Yes Recipient Signature: Yes Med Rec Note Co-signed by Attending: Coverage Notice Comment: 1 - inpt at [facility] 2-[facility] 3- [facility] Reviewer: [id number] - Sav Rooney Notice Issued Date-Time: 03/30/2018 10:50 Notice Type: IM Discharge Notice Notice Delivered To: Patient Relationship to Patient: Geotechnical Department Manager Name: Delivery Method: HAND - Hand Delivered Ivonne Days: Prior Verbal Notification: Recipient Understood Notice: Yes Recipient Signature: Yes Med Rec Note Co-signed by Attending: Coverage Notice Comment: Last DP export: 03/30/18 10:46 a Patient Name: BLADIMIR RIVERA Page [id number] at 1218 All edits/amendments must be made on the electronic document DICTATION DATE: 03/30/181217 REGULATORY ADMINISTRATOR: DARREL 03/30/181217 RPT#: [id number] DC DATE: STATUS: ADM IN [facility] [address] [place] [address] END OF REPORT
--- NOTE | 2018-03-30 15:47 | NUR ---
SLEEPING IN BED. AROUSES TO STIMULI. NO SIGNS OF DISTRESS. WAITING FOR REHAB PLACEMENT. TRENT CÁRDENAS RESUMES PLAN OF CARE. REFUSE SCDs.
--- NOTE | 2018-03-30 16:08 | NUR ---
REMOVED RIGHT UPPER ARM MIDLINE. CATHETER TIP FULLY INTACT. NO BLEEDING AT THE SITE. WRAPPED LOOSELY WITH GAUZE AND TAPE. FSBS@1600 WAS 204 AND PT RECEIVED 4 UNITS OF REGULAR INSULIN. PT DENIES ANY NEEDS AT THIS TIME AND WILL CONTINUE TO WAIT FOR ROOM IN INPATIENT REHAB. WILL HOLD DISCHARGE UNITL THEN. WILL CTM.
--- NOTE | 2018-03-30 18:07 | NUR ---
PT TRANSFERED TO DIALYSIS. PT SIGNED PROPER DISCHARGE PAPERWORK AND REMOVED ALL VALUABLES FROM THE ROOM. PT ATE ALL OF DINNER AND HAD SMALL FORMED BM BEFORE BEING TRANSFERED.
--- NOTE | 2018-03-31 07:58 | MORECARE ---
CASE MANAGEMENT DISCHARGE SUMMARY PATIENT: BLADIMIR RIVERA UNIT: [id number] ADM DATE: 03/20/18 AGE: 82 : 33 SEX: M ROOM/BED: D.2134 AUTHOR: KENYADOC PHYSICIAN: REFERRING PHYSICIAN: GABRIELA YEE DO DATE OF SERVICE: 03/31/18 Discharge Plan Patient Name: BLADIMIR RIVERA [facility] [facility] 1935 Planned Disposition: Inpatient Rehab Anticipated Discharge Date: 03/30/18 Discharge Date: 03/30/2018 Expected LOS: 10 Initial Reviewer: [id number] Initial Review Date: 03/24/2018 Generated: 03/31/18 8:58 am Comments DCP- Discharge Planning Updated by [email or web address]: Sav Rooney on 03/30/18 10:[address] Patient Name: BLADIMIR RIVERA Encounter No: [id number] : 1935 Primary Insurance: MEDICARE A & B Anticipated DC Date: 03-30-2018 Planned Disposition: Inpatient Rehab External Planned Provider: [facility] INPATIENT REHAB DCP follow-up note: BEDSIDE NURSE INFORMED CM THAT PT SAYS HE IS TOO WEAK TO GO HOME. CM MET WITH PT IN ROOM WHO REPORTS HIS SON STAYS AT HOME WITH HIM BUT PT IS TOO WEAK TO GO HOME AND WANTS REHAB BEFORE GOING HOME. PT REPORTS HE STAYED HERE FOR REHAB LAST YEAR AND ASKED ABOUT INPATIENT REHAB, CM EXPLAINED THAT PT MAY NOT BE ACCEPTED FOR INPATIENT AND DISCUSSED PENITENTIARY FACILITY OPTIONS. PT ASKED CM CALL HIS SON, NAIF. CM CALLED NAIF RIVERA, , HE REPORTS FIRST CHOICE IS [facility], [facility] AND THIRD CHOICE WOULD BE [facility]. CHOICE COMPLETED, IMPORTANT MESSAGE FROM MEDICARE PROVIDED AND EXPLAINED. CM CALLED AND SPOKE TO DR. UGARTE NURSE, JACK; DR. UGARTE PROVIDED ORDER FOR INPATIENT REHAB PRESCREEN OR PENITENTIARY FOR DISCHARGE TODAY. CM CALLED [facility], NOTIFIED OF P[facility]ITENTIARY REFERRAL, . [facility]ED [facility] TO [facility] AT [phone]. CM SPOKE TO NORMA OF INPATIENT REHAB AT [facility] WHO SPOKE TO PT AND COMPLETED SCREENING. NORMA NOTIFIED CM THAT THEY WILL ACCEPT PT TO DAY FOR INPATIENT REHAB. CM NOTIFIED PT, PT'S SON VIA PHONE AND DR. UGARTE NURSE JACK. [facility] INPATIENT REHAB TO CONTACT MED 2 NURSE WITH ROOM NUMBER WHEN READY TO ACCEPT PT AND NURSE REPORT. Sav Rooney, CASE MANAGEMENT DCP- Discharge Planning Updated by [id number]: Pura Knowles on 03/24/18 2:[address] Patient Name: BLADIMIR RIVERA Admission Status: ER Accout number: [id number] Admission Date: 03-20-2018 : 1935 Admission Diagnosis:NONINFECTIVE GASTROENTERITIS AND COLITIS, UNSPECIFIED Attending: GABRIELA YEE Current LOS: 4 Anticipated DC Date: Planned Disposition: Home Primary Insurance: MEDICARE A & B Discharge Planning Comments: CM met with patient at bedside. Patient states that his son has been staying with him (Naif) Patient states that he plans on returning to his home upon discharge. Patient denies any discharge needs at this time. CM will continue to follow and assist as needed with discharge planning / needs. Cigarette Lighter Repairer: Pura Knowles DCPIA - Discharge Planning Initial Assessment Updated by [email or web address]: Pura Eleni on 03/24/18 3:37 pm * Is the patient Alert and Oriented? Yes * How many steps to enter\exit or inside your home? * PCP DR. UGARTE * Pharmacy [facility] * Preadmission Environment Home with Family * ADLs Independent * Other Equipment W/C, WALKER, SHOWER CHAIR * List name and contact numbers for known caregivers / representatives who currently or will assist patient after discharge: NAIF RIVERA - SON - [phone] * Verbal permission to speak to the caregivers and representatives has been obtained from the patient. N/A * Community resources currently utilized None * Additional services required to return to the preadmission environment? No * Can the patient safely return to the preadmission environment? Yes * Has this patient been hospitalized within the prior 30 days at any hospital? No Coverage Notice Reviewer: [id number] - Sav Rooney Notice Issued Date-Time: 03/30/2018 10:50 Notice Type: Patient Choice Letter Notice Delivered To: Patient Relationship to Patient: Wage Conciliator Name: Delivery Method: HAND - Hand Delivered Ivonne Days: Prior Verbal Notification: Recipient Understood Notice: Yes Recipient Signature: Yes Med Rec Note Co-signed by Attending: Coverage Notice Comment: 1 - inpt at [facility] 2-[facility] 3- [facility] Reviewer: [id number] - Sav Rooney Notice Issued Date-Time: 03/30/2018 10:50 Notice Type: IM Discharge Notice Notice Delivered To: Patient Relationship to Patient: Wage Conciliator Name: Delivery Method: HAND - Hand Delivered Ivonne Days: Prior Verbal Notification: Recipient Understood Notice: Yes Recipient Signature: Yes Med Rec Note Co-signed by Attending: Coverage Notice Comment: Last DP export: 03/30/18 11:18 a Patient Name: BLADIMIR RIVERA Page [id number] at 0758 All edits/amendments must be made on the electronic document DICTATION DATE: 03/31/188 CONSTRUCTION ENGINEER: DARREL 03/31/18 0758 RPT#: [id number] DC DATE:03/30/18 STATUS: DIS IN [facility] [address] [place] [address] END OF REPORT
== END 2018-03-30 18:08 | DRG 393 ==
LOC: D.ER 10:01 → D.ICU 14:00 → D.M2 14:00 → D.EDHOLD 14:00 → D.M2 17:25 → D.ICU 03-23 23:11 → D.M2 03-28 13:15
PROVIDERS: Family Medicine; Internal Medicine Gastroenterology; Specialist; ADMIT Family Medicine
PROC: B4041ZZ Plain Radiography of Superior Mesenteric Artery using Low Osmolar Contrast (ICD-10-PCS; 2018-03-24)
PROC: 05HY33Z Insertion of Infusion Device into Upper Vein, Percutaneous Approach (ICD-10-PCS; 2018-03-25)
PROC: 0DBN8ZZ Excision of Sigmoid Colon, Via Natural or Artificial Opening Endoscopic (ICD-10-PCS; 2018-03-29)
PROC: 0DBP8ZZ Excision of Rectum, Via Natural or Artificial Opening Endoscopic (ICD-10-PCS; 2018-03-29)
PROC: 0DBK8ZX Excision of Ascending Colon, Via Natural or Artificial Opening Endoscopic, Diagnostic (ICD-10-PCS; 2018-03-29)
PROC: 0D5N8ZZ Destruction of Sigmoid Colon, Via Natural or Artificial Opening Endoscopic (ICD-10-PCS; 2018-03-29)
PROC: 0D5M8ZZ Destruction of Descending Colon, Via Natural or Artificial Opening Endoscopic (ICD-10-PCS; 2018-03-29)
PROC: 0D5P8ZZ Destruction of Rectum, Via Natural or Artificial Opening Endoscopic (ICD-10-PCS; 2018-03-29)
PROC: 0DBM8ZZ Excision of Descending Colon, Via Natural or Artificial Opening Endoscopic (ICD-10-PCS; principal; 2018-03-29 08:29)
DX: K55.9 Vascular disorder of intestine, unspecified (principal); K57.31 Diverticulosis of large intestine without perforation or abscess with bleeding; R41.82 Altered mental status, unspecified; E11.9 Type 2 diabetes mellitus without complications; I10 Essential (primary) hypertension; E87.8 Other disorders of electrolyte and fluid balance, not elsewhere classified; R10.31 Right lower quadrant pain; I95.9 Hypotension, unspecified

== ENCOUNTER 2018-03-30 17:42 | Inpatient (IN) | payer MEDICARE ==
[~2018-03-30] VITALS: Ht 167.6 cm; Wt 71.7 kg
[~2018-03-30 17:42] MED LIST changes: +CARDIZEM SR60 MG PO; +GLUCOPHAGE1000 MG PO; +GLUCOPHAGE500 MG PO; +PLAVIX75 MG PO
[2018-03-30 19:00] VITALS: BP 131/61
[2018-03-31 08:00] VITALS: BP 154/61
[2018-03-31 12:44] VITALS: Ht 167.6 cm; Wt 71.7 kg
[2018-03-31 19:00] VITALS: BP 125/53
[2018-04-01 07:48] LABS: CALC OSMOLALITY 282 mosm/kg (275-300); CALCIUM 7.7 mg/dL (8.5-10.1); CARBON DIOXIDE 26.2 mmol/L (21.0-32.0); CHLORIDE - SERUM 105 mmol/L (98-107); CREATININE - SERUM 0.8 mg/dL (0.6-1.3); GLUCOSE 132 mg/dL (74-106); POTASSIUM - SERUM 3.8 mmol/L (3.5-5.1); SODIUM 141 mmol/L (136-145); UREA NITROGEN 12 mg/dL (7-18); eGFR NON AFRICAN AMERICAN > 90 mL/min (90-120)
[2018-04-01 08:00] VITALS: BP 117/58
[2018-04-01 08:16] LABS: BASOPHILS 0.4 % (0-2); EOSINOPHILS 1.5 % (0-7); HEMATOCRIT 32.2 % (42.0-54.0); HEMOGLOBIN 10.5 g/dL (13.5-17.5); IMMATURE GRANULOCYTES 0.3 % (0-5); LYMPHOCYTES 22.7 % (15-50); MCH 30.7 pg (26.0-34.0); MCHC 32.6 g/dL (31.0-37.0); MCV 94.2 fL (80.0-100.0); MEAN PLATELET VOLUME 10.8 fL (7.4-10.4); MONOCYTES 10.6 % (2-11); NEUTROPHILS 64.5 % (40-80); PLATELET COUNT 120 10x3/uL (130-400); RBC 3.42 10x6/uL (4.20-6.10); RDW 16.7 % (11.5-14.5); WBC 7.2 10x3/uL (4.8-10.8)
[2018-04-01 19:00] VITALS: BP 123/55
[2018-04-02 08:00] VITALS: BP 129/57
[2018-04-02 19:00] VITALS: BP 117/51
[2018-04-03 07:50] LABS: BASOPHILS 0.3 % (0-2); EOSINOPHILS 1.3 % (0-7); HEMATOCRIT 32.1 % (42.0-54.0); HEMOGLOBIN 10.2 g/dL (13.5-17.5); IMMATURE GRANULOCYTES 0.3 % (0-5); LYMPHOCYTES 25.7 % (15-50); MCH 29.7 pg (26.0-34.0); MCHC 31.8 g/dL (31.0-37.0); MCV 93.3 fL (80.0-100.0); MEAN PLATELET VOLUME 10.3 fL (7.4-10.4); MONOCYTES 9.5 % (2-11); NEUTROPHILS 62.9 % (40-80); RBC 3.44 10x6/uL (4.20-6.10); RDW 16.2 % (11.5-14.5); WBC 7.2 10x3/uL (4.8-10.8)
[2018-04-03 07:51] LABS: CALC OSMOLALITY 280 mosm/kg (275-300); CALCIUM 8.2 mg/dL (8.5-10.1); CARBON DIOXIDE 28.7 mmol/L (21.0-32.0); CHLORIDE - SERUM 102 mmol/L (98-107); CREATININE - SERUM 0.8 mg/dL (0.6-1.3); GLUCOSE 130 mg/dL (74-106); POTASSIUM - SERUM 4.1 mmol/L (3.5-5.1); SODIUM 139 mmol/L (136-145); UREA NITROGEN 15 mg/dL (7-18); eGFR NON AFRICAN AMERICAN > 90 mL/min (90-120)
[2018-04-03 08:12] LABS: PLATELET COUNT 153 10x3/uL (130-400)
[2018-04-03 08:18] VITALS: BP 123/68
[2018-04-03 19:00] VITALS: BP 119/43
[2018-04-04 22:39] VITALS: BP 113/71
[2018-04-05 12:21] VITALS: BP 133/55
[2018-04-05 21:06] VITALS: BP 143/55
[2018-04-06 07:50] LABS: BASOPHILS 0.5 % (0-2); EOSINOPHILS 2.1 % (0-7); HEMATOCRIT 33.6 % (42.0-54.0); HEMOGLOBIN 10.8 g/dL (13.5-17.5); IMMATURE GRANULOCYTES 0.5 % (0-5); LYMPHOCYTES 31.4 % (15-50); MCH 29.9 pg (26.0-34.0); MCHC 32.1 g/dL (31.0-37.0); MCV 93.1 fL (80.0-100.0); MEAN PLATELET VOLUME 9.6 fL (7.4-10.4); MONOCYTES 9.6 % (2-11); NEUTROPHILS 55.9 % (40-80); RBC 3.61 10x6/uL (4.20-6.10); RDW 15.8 % (11.5-14.5); WBC 6.2 10x3/uL (4.8-10.8)
[2018-04-06 07:57] LABS: PLATELET COUNT 221 10x3/uL (130-400)
[2018-04-06 08:00] VITALS: BP 129/59
[2018-04-06 08:16] LABS: CALC OSMOLALITY 281 mosm/kg (275-300); CARBON DIOXIDE 24.7 mmol/L (21.0-32.0); CHLORIDE - SERUM 103 mmol/L (98-107); CREATININE - SERUM 0.9 mg/dL (0.6-1.3); GLUCOSE 127 mg/dL (74-106); POTASSIUM - SERUM 3.9 mmol/L (3.5-5.1); SODIUM 139 mmol/L (136-145); UREA NITROGEN 17 mg/dL (7-18); eGFR NON AFRICAN AMERICAN 85 mL/min (90-120)
[2018-04-06 19:00] VITALS: BP 163/52
[2018-04-07 08:00] VITALS: BP 131/61
[2018-04-07 19:00] VITALS: BP 126/49
[2018-04-08 06:40] VITALS: BP 126/49
[2018-04-08 06:48] LABS: BASOPHILS 0.3 % (0-2); EOSINOPHILS 3.7 % (0-7); HEMATOCRIT 31.9 % (42.0-54.0); HEMOGLOBIN 10.2 g/dL (13.5-17.5); IMMATURE GRANULOCYTES 0.2 % (0-5); LYMPHOCYTES 33.3 % (15-50); MCH 29.6 pg (26.0-34.0); MCV 92.5 fL (80.0-100.0); MEAN PLATELET VOLUME 9.6 fL (7.4-10.4); MONOCYTES 8.7 % (2-11); NEUTROPHILS 53.8 % (40-80); PLATELET COUNT 234 10x3/uL (130-400); RBC 3.45 10x6/uL (4.20-6.10); RDW 15.7 % (11.5-14.5)
[2018-04-08 07:04] LABS: CALC OSMOLALITY 283 mosm/kg (275-300); CALCIUM 8.6 mg/dL (8.5-10.1); CARBON DIOXIDE 25.5 mmol/L (21.0-32.0); CHLORIDE - SERUM 104 mmol/L (98-107); CREATININE - SERUM 0.9 mg/dL (0.6-1.3); GLUCOSE 131 mg/dL (74-106); SODIUM 139 mmol/L (136-145); eGFR NON AFRICAN AMERICAN 85 mL/min (90-120)
[2018-04-08 07:06] LABS: UREA NITROGEN 25 mg/dL (7-18)
[2018-04-08 08:00] VITALS: BP 126/55
[2018-04-08 19:00] VITALS: BP 136/52
[2018-04-09 08:08] VITALS: BP 124/62
--- NOTE | 2018-04-09 08:32 | RHP ---
PATIENT: BLADIMIR RIVERA MEDICAL RECORD: [id number] ACCOUNT: [id number] LOCATION:[facility]1114 : [birth year] ADMISSION DATE: 03/30/18 REHABILITATION HISTORY AND PHYSICAL EXAMINATION POST ADMISSION PHYSICIAN EXAMINATION DATE OF ADMISSION: 03/30/2018. 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 He came into the hospital per EMS with nausea and vomiting. He had some altered mental status with this and was unable to communicate effectively. He had some abdominal tenderness, some rebound, left lower quadrant guarding, abnormal bowel sounds. CT of the abdomen showed colitis and fat stranding of the ascending colon. He was placed on IV antibiotics and surgical consult. There was no surgical indication noted at this time. On 03/23/2018, he had increased right lower quadrant pain and large volume of hematochezia. His H&H and platelets slowly declined after a few days. After admitting, he was given platelets and packed red blood cells and placed in the ICU. On 03/24/2018, a CTA of the abdomen showed an area of enhancement adjacent to the diverticulum and the splenic flexure and hypodense contents in the colon lumen consistent with hemorrhage. A mesenteric arteriogram showed an area of hyperemia at the splenic flexure. He was started on vasopressin infusion via sheath. On 03/26/2018, he was awake and conversant. He had had 2 BMs without any blood. He was weaned off the vasopressin. On 03/28/2018, he was moved from ICU to the floor. His H&H remained stable. He was independent with ADLs and mobility prior to coming in the hospital. He states he even drove himself. He has had prolonged immobility, progressive generalized weakness, especially in the lower extremity. He is tolerating his PT. He is very fatigued, has limited flexion and extension of lower extremities. Proximal muscle strength is decreased. He is mod to max assist for ADLs, mod to max assist for sit to stand and off from bed to chair. He is highly motivated and has good family support to regain his strength, return back home and get back to his prior level of functioning. At that time, he was not using any type of assistance device. COMORBIDITIES: In this patient include acute colitis, GI bleed, abdominal pain, right lower quadrant pain, hypotension, diarrhea, hypokalemia, fatigue, weakness, history of pacemaker placement, CVA, NH, and a subdural hematoma in the past. PAST MEDICAL HISTORY: Significant for diabetes, hypertension, NH, sick sinus syndrome. PAST SURGICAL HISTORY: Includes cataract surgery and also pacemaker placement. ALLERGIES: MORPHINE. CURRENT MEDICATIONS: Include potassium 10 mEq daily, Protonix 40 mg daily, metformin 500 mg b.i.d. with meals, furosemide 20 mg daily, allopurinol 300 mg daily, Nitrostat 0.4 mg q.5 minutes p.r.n. chest pain, Pravachol 40 mg q.h.s., Aricept 5 mg q.h.s., and diltiazem 60 mg p.o. b.i.d. HISTORY AND PHYSICAL [id number] BLADIMIR RIVERA HABITS: No alcohol or tobacco use. FAMILY HISTORY: Noncontributory. SOCIAL HISTORY: The patient hopes to return back home and get back to his prior level of functioning. REVIEW OF SYSTEMS: GENERAL: Does complain of weakness and fatigue. HEENT: Denies cold, cough, or congestion. CARDIOVASCULAR: Denies chest pain. PHYSICAL EXAMINATION: VITAL SIGNS: Stable, afebrile. GENERAL: Elderly male in no distress upon exam. HEENT: Normocephalic atraumatic. Mucosa moist. NECK: Supple. No lymphadenopathy. LUNGS: Clear at this time. HEART: Regular rate and rhythm. ABDOMEN: Benign. EXTREMITIES: No clubbing, cyanosis or edema. NEUROLOGIC: He seems mainly intact. LABORATORY DATA: Admit lab work showed a white count of 8.3, H&H of 11 and 33, and platelet count is 119. His admit UA did show a little bit of protein. His INR is 1.24. Admit chemistry shows sodium 140, potassium 3.6, BUN and creatinine of 12 and 0.8, and blood sugar is noted to be 108. 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 The patient has potential to make improvement. We instituted the following multidisciplinary therapies including, but not limited to physical, occupational, respiratory, speech, nutritional services, prosthetics and orthotics. Given his complex medical condition and risk for more complications, rehabilitation services cannot be provided at a low level of care such as fci facility. PLAN: 1. Admit to [facility] for intensive inpatient therapy to include the following disciplines: A. Physical therapy to improve gait, all transfer skills and bed mobility to a modified independent level. B. Occupational therapy to improve activities of daily living to a modified independent level. C. Case management to assist with discharge planning and placement options. D. Nutrition to assist with nutritional needs. E. Rehabilitation nursing to assist in monitoring the patient's underlying medical conditions and to assist with any type of bowel or bladder management. 2. The patient's current medication and medical care will be continued. 3. The patient will be placed on standard fall precautions. 4. The patient's estimated length of stay is approximately 7-10 days. 5. Discuss the patient during care team staff meeting this week. TRANSINT:[id number] Voice Confirmation ID: [id number] DOCUMENT ID: [id number] 04/03/18 Edited for michelle RIOS. HISTORY AND PHYSICAL [id number] BLADIMIR RIVERA notes whether there has been none or any medical/functional change since admission: - No change since preadmission screen. BLANCA attests patient continues to be appropriate for IRF: - Continues to be appropriate. DESTINI BARRERA MD at 0832 CC: [id number] DICTATION DATE: 03/31/18 0800 REGIONAL ACCOUNT MANAGER: 03/31/18 0819 ADM IN [facility] [address] [place] [address]
[2018-04-09 19:00] VITALS: BP 122/54
[2018-04-10 06:10] LABS: BASOPHILS 0.3 % (0-2); EOSINOPHILS 3.4 % (0-7); HEMATOCRIT 31.2 % (42.0-54.0); IMMATURE GRANULOCYTES 0.2 % (0-5); LYMPHOCYTES 37.9 % (15-50); MCH 29.7 pg (26.0-34.0); MCHC 32.1 g/dL (31.0-37.0); MCV 92.6 fL (80.0-100.0); MEAN PLATELET VOLUME 9.6 fL (7.4-10.4); MONOCYTES 6.8 % (2-11); NEUTROPHILS 51.4 % (40-80); PLATELET COUNT 256 10x3/uL (130-400); RBC 3.37 10x6/uL (4.20-6.10); RDW 15.8 % (11.5-14.5); WBC 6.2 10x3/uL (4.8-10.8)
[2018-04-10 06:27] LABS: ANION GAP 14.7 mmol/L (8-16); CALCIUM 8.5 mg/dL (8.5-10.1); CARBON DIOXIDE 24.4 mmol/L (21.0-32.0); CREATININE - SERUM 1.1 mg/dL (0.6-1.3); POTASSIUM - SERUM 4.1 mmol/L (3.5-5.1)
[2018-04-10 07:47] VITALS: BP 117/50
[2018-04-10 07:52] VITALS: BP 135/67
== END 2018-04-10 14:15 | disposition home health service (06) | DRG 93 ==
LOC: D.REHAB 17:42
PROVIDERS: ADMIT Emergency Medicine
DX: G72.89 Other specified myopathies (principal); K52.9 Noninfective gastroenteritis and colitis, unspecified; R10.31 Right lower quadrant pain; I95.9 Hypotension, unspecified; E87.6 Hypokalemia; R53.83 Other fatigue; R53.1 Weakness; Z95.0 Presence of cardiac pacemaker; E11.9 Type 2 diabetes mellitus without complications; I10 Essential (primary) hypertension; R41.82 Altered mental status, unspecified

== ENCOUNTER 2018-05-12 20:00 | Inpatient (IN) | payer MEDICARE ==
[~2018-05-12] VITALS: Ht 167.6 cm; Wt 66.2 kg
--- NOTE | 2018-05-12 20:26 | NUR ---
PATIENT ARRIVED TO REHAB UNIT WITH MED II STAFF VIA WHEELCHAIR. PATIENT ORIENTATED TO ROOM AND BED. CALL LIGHT IN REACH. PATIENT DENIES ANY NEEDS AT THIS TIME.
[2018-05-12 23:46] VITALS: BP 125/62; BP 168/82; BMI 23.6
--- NOTE | 2018-05-13 01:30 | NUR ---
PATIENT ASLEEP WITH EYES CLOSED LAYING IN SUPINE POSITION. HOB AT 30 DEGREES. RESPIRATIONS EVEN. NO S/S OF DISTRESS. CALL LIGHT IN REACH.
--- NOTE | 2018-05-13 03:30 | NUR ---
PATIENT ASLEEP WITH EYES CLOSED LAYING IN SUPINE POSITION. HOB AT 30 DEGREES. RESPIRATIONS EVEN. NO S/S OF DISTRESS. CALL LIGHT IN REACH.
--- NOTE | 2018-05-13 07:30 | NUR ---
TOILETED PT. PT HAD LOOSE BM. PT BACK IN BED. CALL LIGHT IN REACH. PT DENIES NEEDS OR PAIN. BED IN LOW POSITION. SIDE RAILS X2. WILL CONTINUE TO MONITOR.
[2018-05-13 07:47] LABS: CALC OSMOLALITY 281 mosm/kg (275-300); CALCIUM 8.2 mg/dL (8.5-10.1); CARBON DIOXIDE 25.9 mmol/L (21.0-32.0); CHLORIDE - SERUM 103 mmol/L (98-107); CREATININE - SERUM 0.9 mg/dL (0.6-1.3); GLUCOSE 107 mg/dL (74-106); POTASSIUM - SERUM 3.7 mmol/L (3.5-5.1); SODIUM 140 mmol/L (136-145); UREA NITROGEN 22 mg/dL (7-18); eGFR NON AFRICAN AMERICAN 85 mL/min (90-120)
[2018-05-13 07:50] LABS: BASOPHILS 0.4 % (0-2); EOSINOPHILS 3.2 % (0-7); HEMATOCRIT 38.2 % (42.0-54.0); HEMOGLOBIN 12.7 g/dL (13.5-17.5); IMMATURE GRANULOCYTES 0.4 % (0-5); LYMPHOCYTES 29.9 % (15-50); MCH 30.1 pg (26.0-34.0); MCHC 33.2 g/dL (31.0-37.0); MCV 90.5 fL (80.0-100.0); MEAN PLATELET VOLUME 9.9 fL (7.4-10.4); MONOCYTES 7.6 % (2-11); NEUTROPHILS 58.5 % (40-80); PLATELET COUNT 191 10x3/uL (130-400); RBC 4.22 10x6/uL (4.20-6.10); RDW 16.3 % (11.5-14.5); WBC 7.5 10x3/uL (4.8-10.8)
[2018-05-13 08:00] VITALS: BP 124/67
--- NOTE | 2018-05-13 12:00 | NUR ---
EATING LUNCH.DENIES NEEDS.
--- NOTE | 2018-05-13 12:00 | NUR ---
PT LYING IN BED. CALL LIGHT IN REACH. DENIES NEEDS OR PAIN. BED IN LOW. WILL CONTINUE TO MONITOR.
[2018-05-13 14:01] VITALS: Ht 167.6 cm; Wt 66.2 kg
--- NOTE | 2018-05-13 16:58 | NUR ---
CARE TEAM MEETING: PATIENT NEW TO UNIT AND WILL BE RA AT NEXT MEETING. WILL CONTINUE TO FOLLOW WITH PATIENT AND WILL ASSESS WITH NEEDS.
--- NOTE | 2018-05-13 17:24 | NUR ---
PT LYING IN BED. CALL LIGHT IN REACH. PT DENIES NEEDS OR PAIN.
--- NOTE | 2018-05-13 17:52 | RHP ---
PATIENT: BLADIMIR RIVERA MEDICAL RECORD: [id number] ACCOUNT: [id number] LOCATION:[facility] D.1117 : 31 ADMISSION DATE: 05/12/18 REHABILITATION HISTORY AND PHYSICAL EXAMINATION POST ADMISSION PHYSICIAN EXAMINATION DATE OF ADMISSION: 05/12/2018. ADMITTING DIAGNOSIS: Debility secondary to transient ischemic attack. HISTORY OF PRESENT ILLNESS: The patient is admitted to the inpatient rehab for debility secondary to TIA. He is an 82-year-old gentleman with a history of hypertension, hyperlipidemia, CVA, got a history of dementia. He presented to the Emergency Room with complaints of stroke-like symptoms. He was unable to communicate effectively with staff. The patient was admitted on 05/08/2018 for a workup. He has got a past medical history of CVA, he had a paced rhythm. 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 CT of his head showed some chronic small vessel ischemia. He cannot have an MRI secondary to his pacemaker. He has been on telemetry, he has got severe malnutrition and dietitian has seen him. He has got decreased hand strength, debility, deconditioning, weakness, impaired mobility, high risk fall, and these are all barriers to his discharge. He has been seen by PT, OT and speech therapy. He was recently in our acute inpatient rehab and did very well discharging home with home health. He was moderately independent to independent with his mobility using a rolling walker at times and moderately independent to independent with ADLs, currently set up for mod assist with his ADLs and mod assist for mobility. He and his family would like for him to return home at his prior level of functioning or better if possible. COMORBIDITIES: In this patient includes TIA, acute kidney injury, electrolyte abnormalities, hypertension, hyperlipidemia, CVA, diabetes, pacemaker, dementia, severe malnutrition. PAST MEDICAL HISTORY: Significant for CVA, TIA, hypertension, CHF, angina, GI bleed, arthritis, osteoporosis, and dementia. PAST SURGICAL HISTORY: Includes cataract surgery. ALLERGIES: MORPHINE. CURRENT MEDICATIONS: Include potassium 20 mEq daily. He is on Calmoseptine lotion. He is on a glucose replacement protocol for low blood sugars. He is on an intermediate resistant sliding scale with Humulin with q.a.c. and q.h.s. checks, Pravachol 40 mg daily, Protonix 40 mg daily, Nitrostat 0.4 mg q.5 minutes p.r.n. chest pain, metformin 500 mg b.i.d., furosemide 20 mg daily, allopurinol 300 mg daily, polyethylene glycol 17 grams in 8 ounces of water daily, Aricept 5 mg q.h.s., and Cardizem 60 mg b.i.d. HABITS: No current alcohol or tobacco use. FAMILY HISTORY: Noncontributory. SOCIAL HISTORY: The patient hopes to return back home and get back to his prior level of functioning. HISTORY AND PHYSICAL [id number] BLADIMIR RIVERA REVIEW OF SYSTEMS: GENERAL: Does complain of some weakness and fatigue. HEENT: Denies cold, cough, or congestion. CARDIOVASCULAR: Denies chest pain. PHYSICAL EXAMINATION: VITAL SIGNS: Stable. His blood pressure is 124/67, sat is 97% on room air, respirations are 18, pulse 68. He is afebrile. GENERAL: A well-developed elderly gentleman in no acute distress upon exam. HEENT: Normocephalic and atraumatic. Mucosa moist. NECK: Supple. No lymphadenopathy. LUNGS: Clear at this time. HEART: Regular rate and rhythm. No murmurs, rubs or gallops. ABDOMEN: Benign. EXTREMITIES: No clubbing, cyanosis or edema. NEUROLOGIC: He does have noted some deficits. LABORATORY DATA: White count 7.5, H&H of 12.7 and 38.2, and platelet count was noted to be 191. Sodium 140, potassium 3.7, BUN and creatinine of 22 and 0.9, and blood sugar is noted to be 107. ASSESSMENT: This is an 82-year-old gentleman admitted to the rehab with a working diagnosis of debility secondary to transient ischemic attack. The patient has potential to make improve. We instituted the following multidisciplinary therapies including, but not limited to physical, occupational, respiratory, speech, nutritional services, prosthetics and orthotics. Given his complex medical condition and risk for more complications, rehabilitation services cannot be provided at a low level of care such as shelter facility. PLAN: 1. Admit to [facility] for intensive inpatient therapy to include the following disciplines: A. Physical therapy to improve gait, all transfer skills and bed mobility to a modified independent level. B. Occupational therapy to improve activities of daily living to a modified independent level. C. Case management to assist with discharge planning and placement options. D. Nutrition to assist with nutritional needs. E. Rehabilitation nursing to assist in monitoring the patient's underlying medical conditions and to assist with any type of bowel or bladder management. 2. The patient's current medications and medical care will be continued. 3. The patient will be placed on standard fall precautions. 4. The patient's estimated length of stay is approximately 7-10 days. 5. We will discuss the patient during care team staff meeting this week. TRANSINT:[id number] Voice Confirmation ID: [id number] DOCUMENT ID: [id number] BLANCA notes whether there has been none or any medical/functional change since admission: - No change since the PAS BLANCA attests patient continues to be appropriate for IRF: HISTORY AND PHYSICAL [id number] BLADIMIR RIVERA - Remains appropriate for the ARU DESTINI BARRERA MD at 1752 CC: [id number] DICTATION DATE: 05/13/18 0952 HEALTH ASSESSMENT AND TREATMENT TEACHER: 05/13/18 1013 ADM IN [facility] [address] [place] [address]
--- NOTE | 2018-05-13 19:18 | NUR ---
AWAKE AND ALERT. RESTING IN BED. RESPIRATIONS UNLABORED. TALKING WITH VISTORS. NO C/O DISCOMFORTS. NO DISTRESS NOTED.
[2018-05-13 19:26] VITALS: BP 143/59
--- NOTE | 2018-05-13 23:58 | NUR ---
RESTING IN BED WITH EYES CLOSED AND RESPIRATIONS UNLABORED. NO DISTRESS NOTED. CALL LIGHT IN REACH.
--- NOTE | 2018-05-14 02:00 | NUR ---
EYES CLOSED. RESPIRATIONS UNLABORED. NO DISTRESS NOTED. CALL LIGHT IN REACH.
--- NOTE | 2018-05-14 05:07 | NUR ---
QUIET HOURS. RESTING IN BED WITH NO DISTRESS NOTED. CALL LIGHT IN REACH. NO ACUTE CHANGES IN CONDITION THIS SHIFT.
[2018-05-14 08:00] VITALS: BP 118/66
--- NOTE | 2018-05-14 10:22 | NUR ---
SITTING UP IN WC. STATES PAIN MEDS HAVE HELPED HIS BACK PAIN. HE IS SLEEPY BUT ORIENTED X3....THINKS IT IS 2018
--- NOTE | 2018-05-14 10:25 | NUR ---
RESTING QUIETLY IN BED. DENIES NEEDS OR PAIN. CALL LIGHT IN REACH
--- NOTE | 2018-05-14 15:35 | NUR ---
RESTING QUIETLY IN BED. NO S/S DISTRESS. CALL LIGHT IN REACH
--- NOTE | 2018-05-14 18:47 | NUR ---
SITTING UP IN BED. ATE SUPPER AND NOW RESTING QUIETLY. CALL LIGHT IN REACH. DENIES NEEDS
--- NOTE | 2018-05-14 20:02 | NUR ---
AWAKE AND ALERT. RESTING IN BED WITH RESPIRATIONS UNLABORED. NO DISTRESS NOTED. CALL LIGHT IN REACH.
[2018-05-14 21:20] VITALS: BP 118/54
--- NOTE | 2018-05-15 01:46 | NUR ---
RESTING QUIETLY IN BED. RESPIRATIONS UNLABORED. NO DISTRESS NOTED.
--- NOTE | 2018-05-15 05:54 | NUR ---
QUIET HOURS. RESTING IN BED WITH NO DISTRESS NOTED. BLOOD SUGAR 102. CALL LIGHT IN REACH.
[2018-05-15 07:42] LABS: BASOPHILS 0.3 % (0-2); EOSINOPHILS 2.5 % (0-7); HEMATOCRIT 36.5 % (42.0-54.0); HEMOGLOBIN 12.1 g/dL (13.5-17.5); IMMATURE GRANULOCYTES 0.3 % (0-5); LYMPHOCYTES 33.8 % (15-50); MCH 29.7 pg (26.0-34.0); MCHC 33.2 g/dL (31.0-37.0); MCV 89.7 fL (80.0-100.0); MEAN PLATELET VOLUME 9.8 fL (7.4-10.4); MONOCYTES 6.7 % (2-11); NEUTROPHILS 56.4 % (40-80); PLATELET COUNT 180 10x3/uL (130-400); RBC 4.07 10x6/uL (4.20-6.10); RDW 16.1 % (11.5-14.5); WBC 7.6 10x3/uL (4.8-10.8)
[2018-05-15 07:53] LABS: CALCIUM 8.4 mg/dL (8.5-10.1); CARBON DIOXIDE 25.9 mmol/L (21.0-32.0); CREATININE - SERUM 1.1 mg/dL (0.6-1.3); POTASSIUM - SERUM 3.9 mmol/L (3.5-5.1)
[2018-05-15 08:00] VITALS: BP 120/59
--- NOTE | 2018-05-15 08:00 | NUR ---
SITTING UP IN BED WAITING ON BREAKFAST. DENIES NEEDS OR SOB. CALL LIGHT IN REACH
--- NOTE | 2018-05-15 12:19 | NUR ---
SITTING IN WC IN ROOM EATING LUNCH. HAS BEEN UP WITH THERAPY. IS OCCAS INCONT OF SMALL AMTS OF URINE. CALL LIGHT IN REACH
--- NOTE | 2018-05-15 13:30 | NUR ---
LAYING BACK DOWN IN BED RESTING QUIETLY. EYES CLOSED. RESP EFFORT NON LABORED. SIDE RAILS UP X2. CALL LIGHT IN REACH
--- NOTE | 2018-05-15 17:45 | NUR ---
LAYING IN BED QUIETLY. DENIES NEEDS OR C/O. FSBS WAS 90. HE DENIES NEEDING SNACK SUPPER WILL BE SERVED SHORTLY. CALL LIGHT IN REACH. BED IN LOWEST POSITION.
--- NOTE | 2018-05-15 19:10 | NUR ---
PATIENT IS SLEEPING. BED IS DOWN LOW WITH SIDE RAILS UP X2. CALL LIGHT IS IN REACH.
[2018-05-15 20:22] VITALS: BP 122/54
--- NOTE | 2018-05-15 22:17 | NUR ---
PT IS RESTING IN BED TRYING TO CALL HIS SISTER, BUT SHE IS NOT ANSWERING. HE VOICED COMPLAINT OF ELEVATED ANXIETY AND BACK PAIN LEVEL OF 9. MEDICATED PER MAR.
--- NOTE | 2018-05-16 00:27 | NUR ---
PT RESTING IN BED WITH EYES CLOSED.
--- NOTE | 2018-05-16 05:54 | NUR ---
PT RESTING IN BED WITH EYES CLOSED. AWOKE EASILY TO VERBAL STIMULI. TOLERATED AM MED WITHOUT DIFFICULTY.
[2018-05-16 07:30] VITALS: BP 126/61
--- NOTE | 2018-05-16 07:33 | NUR ---
PT SITTING UP IN BED. CALL LIGHT IN REACH. PT DENIES NEEDS OR PAIN. BED IN LOW. SIDE RAILS X2. RESP EVEN AND UNLABORED. WILL CONTINUE TO MONITOR.
--- NOTE | 2018-05-16 08:08 | NUR ---
SITTING UP IN BED EATING .DENIES NEEDS.
--- NOTE | 2018-05-16 11:10 | NUR ---
PT LYING IN BED. RESTING QUIETLY. CALL LIGHT IN REACH. PT DENIES NEEDS OR PAIN.
--- NOTE | 2018-05-16 17:17 | NUR ---
PT LYING IN BED. CALL LIGHT IN REACH. PT DENIES NEEDS AT THIS TIME. WILL CONTINUE TO MONITOR.
--- NOTE | 2018-05-16 19:13 | NUR ---
PATIENT IS SLEEPING. BED IS DOWN LOW WITH SIDE RAILS UP X2. CALL LIGHT IS IN REACH.
[2018-05-16 19:45] VITALS: BP 116/84
--- NOTE | 2018-05-16 20:52 | NUR ---
PT IS RESTING QUIETLY IN BED WITH EYES CLOSED. RESPS ARE EVEN AND UNLABORED. NO ACUTE DISTRESS NOTED.
--- NOTE | 2018-05-17 00:27 | NUR ---
RESTING IN BED WITH EYES CLOSED.
--- NOTE | 2018-05-17 05:53 | NUR ---
PT IS RESTING IN BED WITH EYES OPEN. NO NEEDS VOICED. TOLERATED AM MED WITHOUT DIFFICULTY.
[2018-05-17 08:32] VITALS: BP 125/48
--- NOTE | 2018-05-17 12:51 | NUR ---
PATIENT ALERT AND ORIENTED THIS MORNING. ATE 100% OF BREAKFST. SLEPT MOST OF THE MORNING. C/O OF STOMACH PAIN WHICH APPEAR TO BE GAS PAINS. NO OTHER COMPLAINTS. SITTING UP IN BED EATING LUNCH AT THIS TIME. WILL CONTINUE TO MONITOR. CALL LIGHT WITHIN REACH.
--- NOTE | 2018-05-17 19:27 | NUR ---
PATIENT IS SLEEPING. BED IS DOWN LOW WITH SIDE RAILS UP X2 AND CL IS IN REACH.
[2018-05-17 19:45] VITALS: BP 126/75
--- NOTE | 2018-05-17 21:55 | NUR ---
PT RESTING IN BED WITH EYES OPEN. NO NEEDS VOICED.
--- NOTE | 2018-05-18 00:49 | NUR ---
PT RESTING IN BED WITH EYES CLOSED.
--- NOTE | 2018-05-18 04:00 | NUR ---
PT RESTING IN BED WITH EYES CLOSED. NO DISTRESS NOTED.
--- NOTE | 2018-05-18 06:14 | NUR ---
PT LYING AWAKE IN BED. NO NEEDS VOICED.
[2018-05-18 07:17] LABS: BASOPHILS 0.5 % (0-2); EOSINOPHILS 0 % (0-7); HEMATOCRIT 37.2 % (42.0-54.0); HEMOGLOBIN 12.1 g/dL (13.5-17.5); IMMATURE GRANULOCYTES 0.2 % (0-5); LYMPHOCYTES 38.2 % (15-50); MCH 29.7 pg (26.0-34.0); MCHC 32.5 g/dL (31.0-37.0); MCV 91.2 fL (80.0-100.0); MEAN PLATELET VOLUME 9.6 fL (7.4-10.4); MONOCYTES 11.5 % (2-11); NEUTROPHILS 49.6 % (40-80); PLATELET COUNT 157 10x3/uL (130-400); RBC 4.08 10x6/uL (4.20-6.10); RDW 16.3 % (11.5-14.5); WBC 4.1 10x3/uL (4.8-10.8)
[2018-05-18 07:27] LABS: CALC OSMOLALITY 279 mosm/kg (275-300); CALCIUM 8.7 mg/dL (8.5-10.1); CARBON DIOXIDE 25.9 mmol/L (21.0-32.0); CHLORIDE - SERUM 101 mmol/L (98-107); CREATININE - SERUM 0.8 mg/dL (0.6-1.3); GLUCOSE 124 mg/dL (74-106); POTASSIUM - SERUM 3.7 mmol/L (3.5-5.1); SODIUM 138 mmol/L (136-145); UREA NITROGEN 21 mg/dL (7-18); eGFR NON AFRICAN AMERICAN > 90 mL/min (90-120)
[2018-05-18 08:02] VITALS: BP 116/57
--- NOTE | 2018-05-18 12:53 | NUR ---
PATIENT COMPLAINING OF "FEELING BAD ALL OVER". TESTED FOR FLU. AWAITING RESULTS.
--- NOTE | 2018-05-18 13:09 | NUR ---
Nutrition Follow Up: Pt was asleep at the time of RD visit. Interview deferred. Diet: ADA PO Intake: 76% meal avg BM: 05/17/18 Labs reviewed Meds noted including Lasix Rec continue current diet. RD following.
--- NOTE | 2018-05-18 13:31 | NUR ---
FLU SWAB CAME BACK NEGEATIVE
--- NOTE | 2018-05-18 17:37 | NUR ---
PATIENT RESTED ALL AFTERNOON AFTER THERAPY. STATES THAT HE FEELS VERY TIRED. NO OTHER COMPLAINTS. WILL CONTINUE TO MONITOR. CALL LIGHT WITHIN REACH.
--- NOTE | 2018-05-18 19:40 | NUR ---
THE PATIENT WAS ASLEEP, BUT EASILY WOKE WHE STAFF ENETERED HIS ROOM. BED IS IN THE LOW POSITION WITH SIDERAILS X2 AND CALL LIGHT WITHIN REACH. THE PATIENT WAS EDUCATED ON THE USE OF A CALL LIGHT AND DEMONSTRATED UNDERSTANDING VIA TEACHABCK METHOD. THE PATIENT APPEARS COMFORTABLE WITH NO QUESTIONS OR CONCERNS AT THIS TIME.
[2018-05-18 20:00] VITALS: BP 115/57
--- NOTE | 2018-05-19 02:12 | NUR ---
THE PATIENT APPEARS TO BE SLEEPING BED IS IN THE LOW POSITION WITH SIDERAILS X2 AND CALL LIGHT WITHIN REACH.
--- NOTE | 2018-05-19 07:45 | NUR ---
REC'D PT IN BED WITH EYES CLOSED. RESPONDS TO VERBAL STIMULI. ALERT AND ORIENTED X 3. ASSESSMENT COMPLETED. PT DENIES ANY PAIN OR DISCOMFORT AT THIS TIME. SIDE RAILS UP X 2 FOR SAGETY. BED ALARM IN PLACE. BED IN LOW POSITION. CALL LIGHT WITHIN REACH. NO S/SX OF DISTRESS NOTED. WILL CONTINUE TO MONITOR Q 15 MINUTES.
[2018-05-19 08:00] VITALS: BP 118/54
--- NOTE | 2018-05-19 15:38 | NUR ---
PATIENT ADMITTED TO REHAB FROM ACUTE FLOOR. DR. UGARTE IS HIS PCP. DME AT HOME IS WALKER, WHEELCHAIR AND SHOWERCHAIR. PLANS ARE FOR PATIENT TO RETURN HOME WITH FAMILY. WILL CONTINUE TO FOLLOW WITH PATIENT AND WILL ASSIST WITH NEEDS.
--- NOTE | 2018-05-19 19:50 | NUR ---
PATIENT RECEIVED SITTING UP IN BED EATING HIS MEAL. SON AT BEDSIDE. PATIENT ASSESSMENT & VITAL SIGNS DONE. PATIENT BED LOW. ALARM ON. CALL LIGHT & BEDSIDE TABLE WITHIN REACH. WILL CONTINUE TO MONITOR.
[2018-05-19 19:57] VITALS: BP 115/60
--- NOTE | 2018-05-20 01:24 | NUR ---
RESTING IN BED WITH EYES CLOSED AND RESPIRATIONS UNLABORED. NO DISTRESS NOTED. CALL LIGHT IN REACH.
--- NOTE | 2018-05-20 04:00 | NUR ---
PATIENT EYES CLOSED. RESPIRATIONS 18 & EVEN. BED LOW. ALARM ON. CALL LIGHT WITHIN REACH. WILL CONTINUE TO MONITOR.
[2018-05-20 07:30] LABS: BASOPHILS 0.5 % (0-2); EOSINOPHILS 0 % (0-7); HEMATOCRIT 38.3 % (42.0-54.0); HEMOGLOBIN 12.5 g/dL (13.5-17.5); IMMATURE GRANULOCYTES 0.2 % (0-5); LYMPHOCYTES 42.4 % (15-50); MCH 29.5 pg (26.0-34.0); MCHC 32.6 g/dL (31.0-37.0); MCV 90.3 fL (80.0-100.0); MEAN PLATELET VOLUME 9.7 fL (7.4-10.4); MONOCYTES 9.5 % (2-11); NEUTROPHILS 47.4 % (40-80); PLATELET COUNT 169 10x3/uL (130-400); RBC 4.24 10x6/uL (4.20-6.10); RDW 16.3 % (11.5-14.5); WBC 4.4 10x3/uL (4.8-10.8)
[2018-05-20 07:41] LABS: CALC OSMOLALITY 276 mosm/kg (275-300); CALCIUM 8.5 mg/dL (8.5-10.1); CARBON DIOXIDE 26.2 mmol/L (21.0-32.0); CHLORIDE - SERUM 99 mmol/L (98-107); CREATININE - SERUM 0.9 mg/dL (0.6-1.3); GLUCOSE 120 mg/dL (74-106); POTASSIUM - SERUM 3.4 mmol/L (3.5-5.1); SODIUM 136 mmol/L (136-145); UREA NITROGEN 24 mg/dL (7-18); eGFR NON AFRICAN AMERICAN 85 mL/min (90-120)
[2018-05-20 08:00] VITALS: BP 114/57
--- NOTE | 2018-05-20 08:00 | NUR ---
PT RESTING IN BED WITH EYES OPEN CALL LIGHT IN REACH WILL MONITER
--- NOTE | 2018-05-20 19:44 | NUR ---
PT LYING IN BED RESTING. CALL LIGHT IN REACH. PT DENIES NEEDS AT THIS TIME OR PAIN. BED IN LOW. SIDE RAILS X2. RESP EVEN AND UNLABORED. WILL CONTINUE TO MONITOR.
[2018-05-20 21:19] VITALS: BP 113/54
--- NOTE | 2018-05-21 00:54 | NUR ---
PT PRESSED CALL LIGHT. PT TOLD THIS NURSE THAT HIS HEAD WAS HURTING. GAVE TYLENOL PER ORDER. CALL LIGHT IN REACH. WILL CONTINUE TO MONITOR.
--- NOTE | 2018-05-21 05:26 | NUR ---
PT RESTING QUIETLY. CALL LIGHT IN REACH. NO SIGNS OF DISTRESS OR PAIN.
[2018-05-21 08:14] VITALS: BP 124/59
--- NOTE | 2018-05-21 08:15 | NUR ---
PT RESTING IN BED WITH EYES OPEN CALL LIGHT IN REACH NO PROBLEMS WILL MONITER
--- NOTE | 2018-05-21 15:15 | NUR ---
PATIENT DISCHARGING HOME 05/22/18 WITH FAMILY. [facility] WILL PROVIDE THERAPY AT HOME. PATIENT CHOICE FORM FOR HOME HEALTH AND [facility] FORMS SIGNED, COPY GIVEN TO PATIENT AND FILED IN CHART. DISCHARGE INSRUCTIONS WITH [facility] FAXED TO PCP AND TO HOME HEALTH. DR. UGARTE 06/01/18 @ 1:15. NO NEW DME NEEDED AT THIS TIME
--- NOTE | 2018-05-21 18:26 | NUR ---
PT RESTING IN BED WITH EYES OPEN CALL LIGHT IN REACH NO PROBLEMS WILL MONITER
--- NOTE | 2018-05-21 19:37 | NUR ---
PT LYING BED RESTING QUIETLY. CALL LIGHT IN REACH. BED IN LOW. SIDE RAILS X2. NO SIGNS OF DISTRESS OR PAIN. RESP EVEN AND UNLABORED. WILL CONTINUE TO MONITOR.
[2018-05-21 20:57] VITALS: BP 141/65
--- NOTE | 2018-05-22 00:09 | NUR ---
PT RESTING QUIETLY. EYES CLOSED. CALL LIGHT IN REACH. NO SIGNS OF DISTRESS OR PAIN.
--- NOTE | 2018-05-22 04:20 | NUR ---
PT ASLEEP NO NEEDS NOTED FLUIDS AND CALL LIGHT WITHIN REACH
--- NOTE | 2018-05-22 04:48 | NUR ---
PT RESTING QUIETLY. EYES CLOSED. NO SIGNS OF DISTRESS OR PAIN. CALL LIGHT IN REACH
[2018-05-22 06:19] LABS: BASOPHILS 0.2 % (0-2); EOSINOPHILS 0 % (0-7); HEMOGLOBIN 12.4 g/dL (13.5-17.5); IMMATURE GRANULOCYTES 0.2 % (0-5); LYMPHOCYTES 20.5 % (15-50); MCH 29.5 pg (26.0-34.0); MCHC 32.6 g/dL (31.0-37.0); MCV 90.3 fL (80.0-100.0); MEAN PLATELET VOLUME 9.8 fL (7.4-10.4); MONOCYTES 5.9 % (2-11); NEUTROPHILS 73.2 % (40-80); PLATELET COUNT 166 10x3/uL (130-400); RBC 4.21 10x6/uL (4.20-6.10); RDW 16.1 % (11.5-14.5); WBC 5.2 10x3/uL (4.8-10.8)
[2018-05-22 06:30] LABS: CALC OSMOLALITY 282 mosm/kg (275-300); CALCIUM 8.8 mg/dL (8.5-10.1); CARBON DIOXIDE 26.4 mmol/L (21.0-32.0); CHLORIDE - SERUM 101 mmol/L (98-107); CREATININE - SERUM 0.9 mg/dL (0.6-1.3); GLUCOSE 126 mg/dL (74-106); POTASSIUM - SERUM 3.5 mmol/L (3.5-5.1); SODIUM 139 mmol/L (136-145); UREA NITROGEN 20 mg/dL (7-18); eGFR NON AFRICAN AMERICAN 85 mL/min (90-120)
--- NOTE | 2018-05-22 09:55 | NUR ---
PHYSICAL THERAPIST WALKED IN PATIENTS ROOM AND NOTICED THAT CHRISTOPHE WAS ONT HE FLOOR IN BATHROOM. CALLED TO THIS NURSE. PATIENT HAD A SLIGHT PULSE AND SLIGHT BREATH SOUND. RAPID RESPONDS CALLED. BEFORE RAPID RESPONS CAME DOWN TO ROOM. PATIENT HAD STOPPED BREATHING AND NO PULSE DETECTED. ELLY CHRISTINA CALLED. [id number] ELLY CHRISTINA TEAM IN ROOM. CODE STARTED. PATIENT HAS A PULSE, AND WEAK BREATH. PATIENT TRANSFERED ONTO BED. AMBU BAG HELPING PATINET BREATH. IV STARTED IN RIGHT ANKLE, 18 IRVING. N/S. SEE MEDICATIONS GIVEN ON ELLY CHRISTINA FORM. PATIENT TAKEN UP TO ICU.
--- NOTE | 2018-05-22 10:20 | NUR ---
DR Julián BARRERA CALLED AND NOTIFIED OF STATUS. SON NAIF CALLED AND NOTIFIED OF STATUS
--- NOTE | 2018-05-25 09:36 | NUR ---
LATE ENTRY: DISCHARGE FROM REHAB TO GO HOME ON HOLD, PATIENT CODED AND IS ADMITTED TO ICU
== END 2018-05-22 11:19 | disposition home health service (06) | DRG 947 ==
LOC: D.REHAB 20:00
PROVIDERS: ADMIT Emergency Medicine; ATTEND Emergency Medicine
DX: R53.81 Other malaise (principal); E43 Unspecified severe protein-calorie malnutrition; G45.9 Transient cerebral ischemic attack, unspecified; N17.9 Acute kidney failure, unspecified; E87.8 Other disorders of electrolyte and fluid balance, not elsewhere classified; I10 Essential (primary) hypertension; E78.5 Hyperlipidemia, unspecified; F03.90 Unspecified dementia, unspecified severity, without behavioral disturbance, psychotic disturbance, mood disturbance, and anxiety; Z95.0 Presence of cardiac pacemaker; E11.65 Type 2 diabetes mellitus with hyperglycemia; E83.42 Hypomagnesemia; D50.9 Iron deficiency anemia, unspecified

== ENCOUNTER 2018-05-22 10:27 | Inpatient (IN) | payer MEDICARE ==
[~2018-05-22] VITALS: Ht 167.6 cm; Wt 72.1 kg
[2018-05-22] VITALS (22 sets, daily range): BP systolic 79–149; BP diastolic 48–98; Ht 167.6 cm; Wt 72.1 kg
--- NOTE | 2018-05-22 10:40 | NUR ---
REC'D FROM REHAB S/P CODE. #7.5 OETT PATENT AND CONNECTED TO VENT. TV 500 FIO2 40% AC 15 PEEP 5. CONNECTED TO MONITOR. SEE FLOWSHEET FOR VS.
[2018-05-22 11:11] LABS: CARBON DIOXIDE 21.7 mmol/L (21.0-32.0); MAGNESIUM - SERUM 1.2 mg/dL (1.8-2.4); POTASSIUM - SERUM 3.7 mmol/L (3.5-5.1)
[2018-05-22 12:06] LABS: CKMB 0.6 U/L (0.0-3.6); CREATINE KINASE 33 UL (21-232); TROPONIN-I 0.048 ng/mL (0.000-0.060)
--- NOTE | 2018-05-22 14:58 | CN ---
PATIENT NAME:BLADIMIR RIVERA MEDICAL RECORD: [id number] : 31 LOCATION:BRY.[id number] ADMIT DATE: 05/22/18 ACCOUNT: [id number] CONSULTING PHYSICIAN: MAGGIE SUN MD REFERRING PHYSICIAN: DESTINI BARRERA MD DATE OF CONSULTATION: 05/22/2018 CARDIOLOGY CONSULTATION DIAGNOSES: 1. Status post ventricular fibrillation arrest. 2. Sick sinus syndrome. 3. Status post pacemaker. 4. Atrial fibrillation. 5. Hypophosphatemia. 6. Hypomagnesemia. 7. Hypokalemia. HISTORY OF PRESENT ILLNESS: Mr. Rivera presented with CVA, TIA symptomatology, was stabilized from a neurologic standpoint, placed in rehab. He fell out in rehab. He was then in CAT scan and had a V-fib arrest. Pacemaker was interrogated. He has had 60 days of atrial fibrillation, terminated today with the shock when he was in a CAT scan. He is now in sinus rhythm. He is on Cordarone drip. PHYSICAL EXAMINATION: GENERAL APPEARANCE: Well-nourished, well-developed, appears stated age. Level of distress, comfortable. PSYCHIATRIC: Mental status, alert, normal affect. Orientation, oriented to time, place and person. EYES: Lids and conjunctiva, noninjected. No discharge, no pallor. ENT: Lips, teeth, gums, normal dentition. Oropharynx, no cyanosis, no pallor. NECK: Carotid arteries, bilateral normal upstroke, no bruits, no thrills. JUGULAR VEINS: No jugular venous pressure or distention. CERVICAL LYMPH NODES: Nontender, nonenlarged. THYROID: Not enlarged. Nontender. No nodules. LUNGS: Respiratory effort, unlabored. CHEST: Normal curvature. No thoracic deformity. No chest wall tenderness. Percussion, resonant. Auscultation, clear. No wheezes, no rales, no rhonchi. CARDIOVASCULAR: Precordial exam, nondisplaced. No heaves or pericardial thrills. Rate and rhythm, regular. Heart sounds, normal S1, normal S2. No S3, no gallop, no rub. Systolic murmur, not heard. Diastolic murmur, not heard. EXTREMITIES: No cyanosis, no edema. Peripheral pulses, full and equal in all extremities, except as noted. No bruits appreciated. ABDOMEN: Soft, nondistended. Normal aorta. No bruit. Nontender. No masses. Liver, nontender, no hepatomegaly. Spleen, nontender, no splenomegaly. MUSCULOSKELETAL: No joint tenderness. No joint swelling. No erythema. NEUROLOGICAL: Normal gait, normal strength, normal tone. SKIN: Warm and dry. OVERALL IMPRESSION: Arrhythmia, most likely secondary to his significant electrolyte imbalances. These are being replaced by Dr. Hooper. We would leave him on Cordarone IV, at this point switching him to p.o. when he is taking p.o. At this time, we will get an echocardiogram. No other cardiac workup will be necessary at this time. CONSULT REPORT [id number] BLADIMIR RIVERA TRANSINT:[id number] Voice Confirmation ID: [id number] DOCUMENT ID: [id number] MAGGIE SUN MD at 1458 CC: [id number] DICTATION DATE: 05/22/18 1219 INFORMATICA ARCHITECT: 05/22/18 1325 ADM IN [place] [id number] [place] [id number]
[2018-05-22 16:53] LABS: APPEARANCE CLEAR (CLEAR); COLOR YELLOW (YELLOW); GLUCOSE 1000 mg/dL (NEGATIVE); NITRITE NEGATIVE (NEGATIVE); PROTEIN TRACE mg/dL (NEGATIVE); SPECIFIC GRAVITY 1.025 (1.005-1.020)
[2018-05-22 16:54] LABS: BILIRUBIN NEGATIVE (NEGATIVE); KETONE MODERATE mg/dL (NEGATIVE); UROBILINOGEN NORMAL (NORMAL)
--- NOTE | 2018-05-22 18:55 | NUR ---
RECEIVED PATIENT CARE - SHIFT ASSESSMENT COMPLETED - SEE FLOWSHEET. PATIENT SEDATED/ON VENTILATOR, UNRESPONSIVE. SEDATION TURNED DOWN AT THIS TIME, SYSTOLIC BP LOW. CPOC
[2018-05-22 19:37] LABS: CALC OSMOLALITY 275 mosm/kg (275-300); CALCIUM 7.6 mg/dL (8.5-10.1); CARBON DIOXIDE 24.9 mmol/L (21.0-32.0); CHLORIDE - SERUM 99 mmol/L (98-107); CKMB 0.7 U/L (0.0-3.6); CREATINE KINASE 50 UL (21-232); GLUCOSE 163 mg/dL (74-106); SODIUM 135 mmol/L (136-145); UREA NITROGEN 17 mg/dL (7-18); eGFR NON AFRICAN AMERICAN 76 mL/min (90-120)
--- NOTE | 2018-05-22 19:41 | NUR ---
PAGED DR MELCHOR CALL RETURNED
[2018-05-22 19:42] LABS: POTASSIUM - SERUM 2.9 mmol/L (3.5-5.1); TROPONIN-I 0.291 ng/mL (0.000-0.060)
--- NOTE | 2018-05-22 19:43 | NUR ---
CLARIFIED PLATELETE ORDER WITH DR. MELCHOR, DC ORDER, CRITICAL LABS ALSO ACKNOWLEDGED AT THIS TIME. CALLED LAB TO INFORM TO RELEASE THE HOLD ON THE PLATELETS
--- NOTE | 2018-05-22 21:04 | NUR ---
HS MEDS RECEIVED - PT INTUBATED/SEDATED NOT FOLLOWING COMMANDS - BP STILL SUSTAINING MID TO LOW 80'S CPOC
--- NOTE | 2018-05-22 23:30 | NUR ---
REASSESSMENT COMPLETED, SEDATION HELD AT LOWEST DOSE UP UNTIL CURRENT TIME. PT RESPONDING TO COMMANDS UPPER AND LOWER EXTREMITIES. RIGHT AND LEFT UPPER EXTREMITIES SOFTWARE CONFIGURATION SPECIALIST EQUAL AND STRONG, ABLE TO WEAKLY MOVE TOES AND FEET. SYSTOLIC PRESSURES STILL MAINTAINING HIGH 70'S- MID 80'S - PACED RHYTHM. PUPILS, EQUAL, ROUND AND REACTIVE. LUNG AGUILAR CLEAR, MECHANICAL VENTILATION TEMP LOW - PLACED WARMING BLANKETS AT THIS TIME, INCREASED SEDATION FOR PATIENT COMFORT AND VENTILATOR COMPLIANCE. CPOC
[2018-05-22 23:43] LABS: CKMB 0.4 U/L (0.0-3.6); CREATINE KINASE 51 UL (21-232)
[2018-05-22 23:46] LABS: TROPONIN-I 0.259 ng/mL (0.000-0.060)
[2018-05-23] VITALS (25 sets, daily range): BP systolic 82–115; BP diastolic 48–75
[2018-05-23 02:05] LABS: BASOPHILS 0.1 % (0-2); EOSINOPHILS 0 % (0-7); HEMATOCRIT 35.3 % (42.0-54.0); HEMOGLOBIN 11.5 g/dL (13.5-17.5); IMMATURE GRANULOCYTES 0.7 % (0-5); LYMPHOCYTES 12.9 % (15-50); MCH 29.3 pg (26.0-34.0); MCHC 32.6 g/dL (31.0-37.0); MCV 90.1 fL (80.0-100.0); MEAN PLATELET VOLUME 9.6 fL (7.4-10.4); MONOCYTES 8.1 % (2-11); NEUTROPHILS 78.2 % (40-80); RBC 3.92 10x6/uL (4.20-6.10); RDW 16.2 % (11.5-14.5)
[2018-05-23 02:06] LABS: PLATELET COUNT 129 10x3/uL (130-400); WBC 15.3 10x3/uL (4.8-10.8)
[2018-05-23 02:16] LABS: CALCIUM 7.2 mg/dL (8.5-10.1); CARBON DIOXIDE 23.9 mmol/L (21.0-32.0); CHLORIDE - SERUM 100 mmol/L (98-107); PHOSPHOROUS 2.3 mg/dL (2.5-4.9); SODIUM 134 mmol/L (136-145); UREA NITROGEN 16 mg/dL (7-18); eGFR NON AFRICAN AMERICAN 76 mL/min (90-120)
[2018-05-23 02:17] LABS: CALC OSMOLALITY 268 mosm/kg (275-300); GLUCOSE 106 mg/dL (74-106); MAGNESIUM - SERUM 1.9 mg/dL (1.8-2.4); POTASSIUM - SERUM 3.7 mmol/L (3.5-5.1)
--- NOTE | 2018-05-23 02:32 | NUR ---
URINE SAMPLE COLLECTED AND SENT TO LAB
--- NOTE | 2018-05-23 03:29 | NUR ---
RT AT BEDSIDE FOR CHEST XRAY, VSS CPOC - SHIFT ASSESSMENT COMPLETED POST XRAY
--- NOTE | 2018-05-23 05:30 | NUR ---
PT RESTING COMFORTABLY INTUBATED AND SEDATED - NO DISTRESS NOTED CPOC
--- NOTE | 2018-05-23 07:03 | NUR ---
CALLED PHARMACY REGARDING LOW PHOS LEVEL, WILL MIX AND BRING UP PER [place] IN PHARMACY
--- NOTE | 2018-05-23 10:20 | NUR ---
VENT CHANGES. AC DECREASED TO 12. FIO2 DECREASED TO 30%.
--- NOTE | 2018-05-23 16:27 | NUR ---
1610: FULL STRENGTH PULMOCARE STARTED VIA OGT @ 20CC/HR.
--- NOTE | 2018-05-23 19:00 | NUR ---
RECEIVED PT CARE, PT REPOSITIONING AND ORAL CARE PROVIDED, IV LINES AND PUMPS CHECKED, PHAM ALARM ON, PT INTUBATED AND RESTRAINED. OPENS EYES IN RESPONSE TO REPOSITIONING AND SUCTIONING, FOLLOWS VERBAL COMMANDS, NODS HEAD APPROPRIATELY TO YES AND NO QUESTIONS. NO CHANGES TO SEDATION AT THIS TIME. SHIFT ASSESSMENT COMPLETED, SEE FLOWSHEET 1914 - VSS WITH SYSTOLIC BP OVER 100 AND SUSTAINING.
--- NOTE | 2018-05-23 20:29 | NUR ---
NO ACUTE DISTRESS, PATIENT RESTING COMFORTABLY ON VENTILATOR CPOC
--- NOTE | 2018-05-23 23:17 | NUR ---
REASSESSMENT COMPLETED SEE FLOWSHEET - OGT PLACEMENT AND RESIDUALS CHECKED SEE FLOWSHEET - VSS CPOC
[2018-05-24] VITALS (26 sets, daily range): BP systolic 102–137; BP diastolic 53–94
--- NOTE | 2018-05-24 01:12 | NUR ---
PATIENT RESTING COMFORTABLY, INTUBATED, LIGHTLY SEDATED VSS CPOC
[2018-05-24 02:53] LABS: BASOPHILS 0.2 % (0-2); EOSINOPHILS 0.3 % (0-7); HEMATOCRIT 32.6 % (42.0-54.0); HEMOGLOBIN 10.4 g/dL (13.5-17.5); IMMATURE GRANULOCYTES 0.6 % (0-5); LYMPHOCYTES 15.5 % (15-50); MCH 28.9 pg (26.0-34.0); MCHC 31.9 g/dL (31.0-37.0); MCV 90.6 fL (80.0-100.0); MEAN PLATELET VOLUME 10.3 fL (7.4-10.4); NEUTROPHILS 79.4 % (40-80); PLATELET COUNT 118 10x3/uL (130-400); RDW 16.4 % (11.5-14.5); WBC 11.6 10x3/uL (4.8-10.8)
[2018-05-24 03:06] LABS: CALC OSMOLALITY 276 mosm/kg (275-300); CARBON DIOXIDE 20.4 mmol/L (21.0-32.0); CHLORIDE - SERUM 104 mmol/L (98-107); CREATININE - SERUM 0.7 mg/dL (0.6-1.3); GLUCOSE 165 mg/dL (74-106); MAGNESIUM - SERUM 1.9 mg/dL (1.8-2.4); PHOSPHOROUS 2.2 mg/dL (2.5-4.9); POTASSIUM - SERUM 3.2 mmol/L (3.5-5.1); SODIUM 136 mmol/L (136-145); UREA NITROGEN 14 mg/dL (7-18); VANCOMYCIN - TROUGH 16.7 ug/mL (10.0-20.0); eGFR NON AFRICAN AMERICAN > 90 mL/min (90-120)
[2018-05-24 03:07] LABS: CALCIUM 6.6 mg/dL (8.5-10.1)
--- NOTE | 2018-05-24 03:18 | NUR ---
RECEIVED CRITICAL LAB RESULT VIA PHONE FROM LAB, CALCIUM CRITICAL LOW 6.6 - ALBUMIN 1.9 - CORRECTED CALCIUM 8.28
--- NOTE | 2018-05-24 04:20 | NUR ---
RT AT BEDSIDE, PT TOLERATED ABG BLOOD DRAW WITH MINIMAL SEDATION, CALM AND COOPERATIVE FOLLOWS COMMANDS. LOWERING SEDATION AT THIS TIME FOR AM CPAP TRIALS. VSS CPOC
--- NOTE | 2018-05-24 05:10 | NUR ---
RESIDUAL CHECK COMPLETED SEE FLOWSHEET. SEDATION DECREASED AT THIS TIME - TUBE FEED INCREASED FROM 20CC TO 30CC PER ORDER
--- NOTE | 2018-05-24 11:15 | NUR ---
DR. MELCHOR HERE. TUBE FEEDING AND DIPRIVAN STOPPED IN PREP FOR EXTUBATION.
--- NOTE | 2018-05-24 11:45 | NUR ---
EXTUBATED AND PLACED ON O2 VIA NC @ 2LPM. OGT DC'D. WRIST RESTRAINTS DC'D.
--- NOTE | 2018-05-24 19:11 | NUR ---
REPORT RECEIVED, CARE ASSUMED. PT IS LAYING IN BED WITH EYES CLOSED AT THIS TIME. INITIAL ASSESSMENT COMPLETED, SEE FLOWSHEET FOR DETAILS. NO SIGNS OF ACUTE DISTRESS. WILL CONTINUE TO MONITOR.
--- NOTE | 2018-05-24 21:11 | NUR ---
PT IS RESTING IN BED WITH EYES CLOSED AT THIS TIME. NO ACUTE CHANGES NOTED. NO SIGNS OF ACUTE DISTRESS. WILL CONTINUE TO MONITOR.
--- NOTE | 2018-05-24 23:12 | NUR ---
REASSESSMENT COMPLETED, SEE FLOWSHEET FOR DETAILS. NO ACUTE CHANGES NOTED. NO SIGNS OF ACUTE DISTRESS. WILL CONTINUE TO MONITOR.
[2018-05-25] VITALS (19 sets, daily range): BP systolic 107–134; BP diastolic 63–84
--- NOTE | 2018-05-25 01:12 | NUR ---
PT IS RESTING IN BED WITH EYES CLOSED AT THIS TIME. NO SIGNS OF ACUTE DISTRESS. WILL CONTINUE TO MONITOR.
--- NOTE | 2018-05-25 03:10 | NUR ---
REASSESSMENT COMPLETED, SEE FLOWSHEET FOR DETAILS. NO SIGNS OF ACUTE DISTRESS. WILL CONTINUE TO MONITOR.
[2018-05-25 04:18] LABS: BASOPHILS 0.1 % (0-2); EOSINOPHILS 0.1 % (0-7); HEMATOCRIT 33.2 % (42.0-54.0); HEMOGLOBIN 10.9 g/dL (13.5-17.5); IMMATURE GRANULOCYTES 0.5 % (0-5); LYMPHOCYTES 16.9 % (15-50); MCH 29.7 pg (26.0-34.0); MCHC 32.8 g/dL (31.0-37.0); MCV 90.5 fL (80.0-100.0); MEAN PLATELET VOLUME 11.4 fL (7.4-10.4); MONOCYTES 3.3 % (2-11); NEUTROPHILS 79.1 % (40-80); RBC 3.67 10x6/uL (4.20-6.10); RDW 16.8 % (11.5-14.5)
[2018-05-25 04:22] LABS: PLATELET COUNT 88 10x3/uL (130-400); WBC 7.8 10x3/uL (4.8-10.8)
[2018-05-25 04:28] LABS: CARBON DIOXIDE 22.6 mmol/L (21.0-32.0); CHLORIDE - SERUM 105 mmol/L (98-107); CREATININE - SERUM 0.7 mg/dL (0.6-1.3); GLUCOSE 122 mg/dL (74-106); SODIUM 138 mmol/L (136-145); eGFR NON AFRICAN AMERICAN > 90 mL/min (90-120)
[2018-05-25 04:33] LABS: CALC OSMOLALITY 274 mosm/kg (275-300); POTASSIUM - SERUM 3.7 mmol/L (3.5-5.1); UREA NITROGEN 8 mg/dL (7-18)
[2018-05-25 04:34] LABS: CALCIUM 6.7 mg/dL (8.5-10.1)
[2018-05-25 04:40] LABS: ALBUMIN 1.8 g/dL (3.4-5.0)
--- NOTE | 2018-05-25 05:14 | NUR ---
RECEIVED CRITICAL LAB RESULT. CALCIUM 6.7 ALBUMIN IS 1.9, CORRECTED CALCIUM IS 9.7.
[2018-05-25 05:15] LABS: PLATELET ESTIMATE DECREASED; PLATELET MORPHOLOGY PLT CLUMPS PRESENT
--- NOTE | 2018-05-25 09:22 | NUR ---
TF was stopped yesterday and pt was extubated Appears asleep now Awaiting speech evaluation Reviewed labs: BG 122, BUN 8, Cr 0.7, Na 138, K 3.7, Ca 6.7, Cl 105 Weight 138lb Admit weight 142lb RD following
--- NOTE | 2018-05-25 09:53 | NUR ---
0700 AWAKE ALERT DENIES PAIN ASSESSMENT COMPLETE
--- NOTE | 2018-05-25 09:54 | NUR ---
0900 [facility] CALLING FOR UPDATES. PT COOPERATIVE AND NO ATTEMPTS OF GETTING OUT OF BED
--- NOTE | 2018-05-25 14:35 | NUR ---
1100 PT PLEASANT AND COOPERATIVE. WAITING ON OENDING SWALLOW STUDY PER TRACIE PABON
--- NOTE | 2018-05-25 14:37 | NUR ---
1300 PT ASKED FOR BEDPAN UNABLE TO HAVE BM AT THIS TIME
--- NOTE | 2018-05-25 18:21 | MORECARE ---
CASE MANAGEMENT DISCHARGE SUMMARY PATIENT: BLADIMIR RIVERA UNIT: [id number] ADM DATE: 05/22/18 AGE: 82 : 33 SEX: M ROOM/BED: D.2306 AUTHOR: JORGE ZAMBRANO PHYSICIAN: REFERRING PHYSICIAN: DESTINI BARRERA MD DATE OF SERVICE: 05/25/18 Discharge Plan Patient Name: BLADIMIR RIVERA [facility] [facility] 1935 Planned Disposition: Home Anticipated Discharge Date: Discharge Date: Expected LOS: Initial Reviewer: [email or web address] Initial Review Date: 05/25/2018 Generated: 05/25/18 7:20 pm DCPIA - Discharge Planning Initial Assessment Updated by [email or web address]: Pura Knowles on 05/25/18 6:19 pm * Is the patient Alert and Oriented? Yes * How many steps to enter\exit or inside your home? * PCP [facility] * Pharmacy CAN'T REMEMBER * Preadmission Environment Home with Family * ADLs Independent * Other Equipment WHEELCHAIR, SCOTTER, WALKER * List name and contact numbers for known caregivers / representatives who currently or will assist patient after discharge: NAIF RIVERA - SON- [phone] * Verbal permission to speak to the caregivers and representatives has been obtained from the patient. Yes * Community resources currently utilized Home Health * Please name any agencies selected above. HE THINKS HAS HOME HEALTH BUT DOESN'T KNOW PROVIDER * Additional services required to return to the preadmission environment? No * Can the patient safely return to the preadmission environment? Yes * Has this patient been hospitalized within the prior 30 days at any hospital? Yes Patient Name: BLADIMIR RIVERA Page [id number] at 1821 All edits/amendments must be made on the electronic document DICTATION DATE: 05/25/181819 GEOSPATIAL ANALYST: DARREL 05/25/181819 RPT#: [id number] DC DATE: STATUS: ADM IN [facility] [address] [place] [address] END OF REPORT
--- NOTE | 2018-05-25 18:36 | MORECARE ---
CASE MANAGEMENT DISCHARGE SUMMARY PATIENT: BLADIMIR RIVERA UNIT: [id number] ADM DATE: 05/22/18 AGE: 82 : 33 SEX: M ROOM/BED: D.2306 AUTHOR: KENYA,DOC PHYSICIAN: REFERRING PHYSICIAN: DESTINI BARRERA MD DATE OF SERVICE: 05/25/18 Discharge Plan Patient Name: BLADIMIR RIVERA Facility: [facility]:[place] : 1935 Planned Disposition: Home Anticipated Discharge Date: Discharge Date: Expected LOS: Initial Reviewer: [email or web address] Initial Review Date: 05/25/2018 Generated: 05/25/18 7:36 pm Comments DCP- Discharge Planning Updated by [email or web address]: Pura Knowles on 05/25/18 5:[address] Patient Name: BLADIMIR RIVERA Admission Status: Urgent Accout number: [id number] Admission Date: 05-22-2018 : 1935 Admission Diagnosis:CARDIAC ARREST, CAUSE UNSPECIFIED Attending: DESTINI BARRERA Current LOS: 3 Anticipated DC Date: Planned Disposition: Home Primary Insurance: MEDICARE A & B Discharge Planning Comments: CM met with patient at bedside. Patient states he would like to return home but states he doesn't know if he will be able to. Patient was readmitted from Inpatient Rehab post code. Patient states that lives at home with his son Naif. He states that Naif works so he wouldn't have 24 hr. care. He states that he does have HH ([place] from previous CM notes). Patient son Naif wasn't available to speak with at this time. Patient may need inpatient rehab or SNF before returning home. CM will continue to follow and assist as needed with discharge planning / needs. Clerical Administrator: Pura Knowles DCPIA - Discharge Planning Initial Assessment Updated by [email or web address]: Pura Knowles on 05/25/18 6:19 pm * Is the patient Alert and Oriented? Yes * How many steps to enter\exit or inside your home? * PCP [facility] * Pharmacy CAN'T REMEMBER * Preadmission Environment Home with Family * ADLs Independent * Other Equipment WHEELCHAIR, SCOTTER, WALKER * List name and contact numbers for known caregivers / representatives who currently or will assist patient after discharge: NAIF RIVERA - SON- [phone] * Verbal permission to speak to the caregivers and representatives has been obtained from the patient. Yes * Community resources currently utilized Home Health * Please name any agencies selected above. HE THINKS HAS HOME HEALTH BUT DOESN'T KNOW PROVIDER * Additional services required to return to the preadmission environment? No * Can the patient safely return to the preadmission environment? Yes * Has this patient been hospitalized within the prior 30 days at any hospital? Yes Last DP export: 05/25/18 5:20 p Patient Name: BLADIMIR RIVERA Page [phone] at 1836 All edits/amendments must be made on the electronic document DICTATION DATE: 05/25/181834 SPECIALTY COOK: DARREL 05/25/181834 RPT#: [id number] DC DATE: STATUS: ADM IN [facility] [address] [place] [address] END OF REPORT
--- NOTE | 2018-05-25 18:43 | MORECARE ---
CASE MANAGEMENT DISCHARGE SUMMARY PATIENT: BLADIMIR RIVERA UNIT: [id number] ADM DATE: 05/22/18 AGE: 82 : 33 SEX: M ROOM/BED: D.2306 AUTHOR: KENYA,DOC PHYSICIAN: REFERRING PHYSICIAN: DESTINI BARRERA MD DATE OF SERVICE: 05/25/18 Discharge Plan Patient Name: BLADIMIR RIVERA Facility: [facility]:[place] : 1935 Planned Disposition: Home Anticipated Discharge Date: Discharge Date: Expected LOS: Initial Reviewer: [id number] Initial Review Date: 05/25/2018 Generated: 05/25/18 7:43 pm Comments DCP- Discharge Planning Updated by [email or web address]: Pura Knowles on 05/25/18 5:[address] Patient Name: BLADIMIR RIVERA Admission Status: Urgent Accout number: [id number] Admission Date: 05-22-2018 : 1935 Admission Diagnosis:CARDIAC ARREST, CAUSE UNSPECIFIED Attending: DESTINI BARRERA Current LOS: 3 Anticipated DC Date: Planned Disposition: Home Primary Insurance: MEDICARE A & B Discharge Planning Comments: CM met with patient at bedside. Patient states he would like to return home but states he doesn't know if he will be able to. Patient was readmitted from Inpatient Rehab post code. Patient states that lives at home with his son Naif. He states that Naif works so he wouldn't have 24 hr. care. He states that he does have HH ([facility] from previous CM notes). Patient son Naif wasn't available to speak with at this time. Patient may need inpatient rehab or SNF before returning home. CM will continue to follow and assist as needed with discharge planning / needs. Bit Sharpener Operator: Pura Knowles DCPIA - Discharge Planning Initial Assessment Updated by [email or web address]: Pura Knowles on 05/25/18 6:36 pm * Is the patient Alert and Oriented? Yes * How many steps to enter\exit or inside your home? * PCP [facility] * Pharmacy [facility] * Preadmission Environment Home with Family * ADLs Independent * Other Equipment WHEELCHAIR, SCOTTER, WALKER, SHOWER CHAIR * List name and contact numbers for known caregivers / representatives who currently or will assist patient after discharge: NAIF RIVERA - SON- [phone] * Verbal permission to speak to the caregivers and representatives has been obtained from the patient. Yes * Community resources currently utilized Home Health * Please name any agencies selected above. [facility] * Additional services required to return to the preadmission environment? No * Can the patient safely return to the preadmission environment? Yes * Has this patient been hospitalized within the prior 30 days at any hospital? Yes Last DP export: 05/25/18 5:36 p Patient Name: BLADIMIR RIVERA Page [id number] at 1843 All edits/amendments must be made on the electronic document DICTATION DATE: 05/25/181841 BUMPER OPERATOR: DARREL 05/25/181841 RPT#: [id number] DC DATE: STATUS: ADM IN [facility] [address] [place] [address] END OF REPORT
--- NOTE | 2018-05-25 20:29 | NUR ---
1500 FAMILY MEMBERS AT BEDSIDE VOICES NO COMPLAINTS
--- NOTE | 2018-05-25 20:30 | NUR ---
1700 REFUSED DINNER. ONLY WANTED ICE WATER.
--- NOTE | 2018-05-25 20:50 | NUR ---
RESUMING PATIENT CARE. PATIENT IS ALERT AND ORIENTED. RESTING COMFORTABLY IN BED. RESPIRATIONS ARE EVEN AND UNLABORED. NO S/S OF DISTRESS. NO C/O PAIN. CALL LIGHT WITHIN REACH. WILL CPOC.
--- NOTE | 2018-05-26 02:55 | NUR ---
PATIENT AWAKE RESTING IN BED. RESPIRATIONS ARE EVEN AND UNLABORED. NO S/S OF DISTRESS. NS, DOXYCYCLINE, AMIODARONE INFUSING. PATIENT REMAINS ON 2L NC. CALL LIGHT WITHIN REACH. WILL CPOC.
[2018-05-26 06:54] LABS: BASOPHILS 0.2 % (0-2); EOSINOPHILS 1.1 % (0-7); HEMATOCRIT 33.5 % (42.0-54.0); HEMOGLOBIN 10.9 g/dL (13.5-17.5); IMMATURE GRANULOCYTES 0.7 % (0-5); LYMPHOCYTES 16.1 % (15-50); MCH 29.1 pg (26.0-34.0); MCHC 32.5 g/dL (31.0-37.0); MCV 89.3 fL (80.0-100.0); MEAN PLATELET VOLUME 10.1 fL (7.4-10.4); MONOCYTES 5.7 % (2-11); NEUTROPHILS 76.2 % (40-80); RBC 3.75 10x6/uL (4.20-6.10); RDW 16.3 % (11.5-14.5)
[2018-05-26 07:00] LABS: PLATELET COUNT 191 10x3/uL (130-400); WBC 5.4 10x3/uL (4.8-10.8)
[2018-05-26 07:17] LABS: CARBON DIOXIDE 24.1 mmol/L (21.0-32.0); CHLORIDE - SERUM 104 mmol/L (98-107); CREATININE - SERUM 0.7 mg/dL (0.6-1.3); GLUCOSE 147 mg/dL (74-106); SODIUM 138 mmol/L (136-145); eGFR NON AFRICAN AMERICAN > 90 mL/min (90-120)
[2018-05-26 07:21] LABS: CALC OSMOLALITY 275 mosm/kg (275-300); UREA NITROGEN 5 mg/dL (7-18)
[2018-05-26 07:26] LABS: CALCIUM 6.9 mg/dL (8.5-10.1); POTASSIUM - SERUM 2.4 mmol/L (3.5-5.1)
[2018-05-26 08:35] VITALS: BP 118/72
--- NOTE | 2018-05-26 09:22 | NUR ---
ALERT AND ORIENTED, DENIES ANY NEEDS.TELEMERTY SHOWS PACED RHYTHM.SCHRADER CATH PATENT TO GRAVITY BAG. IV OF NS AT 100 AND CORDARONE DRIP AT 16.7 INFUSING INTO THE LEFT MIDLINE. TELEMERTY SHOWS PACE RHYTHM AT 86. WILL MONITOR
[2018-05-26 12:15] VITALS: BP 121/64
--- NOTE | 2018-05-26 15:28 | MORECARE ---
CASE MANAGEMENT DISCHARGE SUMMARY PATIENT: BLADIMIR RIVERA UNIT: [id number] ADM DATE: 05/22/18 AGE: 82 : 33 SEX: M ROOM/BED: D.2121 AUTHOR: KENYADOC PHYSICIAN: REFERRING PHYSICIAN: DESTINI BARRERA MD DATE OF SERVICE: 05/26/18 Discharge Plan Patient Name: BLADIMIR RIVERA Facility: [facility]:[place] : 1935 Planned Disposition: Inpatient Rehab Anticipated Discharge Date: Discharge Date: Expected LOS: Initial Reviewer: [id number] Initial Review Date: 05/25/2018 Generated: 05/26/18 4:28 pm Comments DCP- Discharge Planning Updated by [id number]: Pura Knowles on 05/25/18 5:[address] Patient Name: BLADIMIR RIVERA Admission Status: Urgent Accout number: [id number] Admission Date: 05-22-2018 : 1935 Admission Diagnosis:CARDIAC ARREST, CAUSE UNSPECIFIED Attending: DESTINI BARRERA Current LOS: 3 Anticipated DC Date: Planned Disposition: Home Primary Insurance: MEDICARE A & B Discharge Planning Comments: CM met with patient at bedside. Patient states he would like to return home but states he doesn't know if he will be able to. Patient was readmitted from Inpatient Rehab post code. Patient states that lives at home with his son Naif. He states that Naif works so he wouldn't have 24 hr. care. He states that he does have HH ([facility] from previous CM notes). Patient son Naif wasn't available to speak with at this time. Patient may need inpatient rehab or SNF before returning home. CM will continue to follow and assist as needed with discharge planning / needs. Crib Clerk: Pura Knowles DCPIA - Discharge Planning Initial Assessment Updated by [email or web address]: Pura Knowles on 05/25/18 6:36 pm * Is the patient Alert and Oriented? Yes * How many steps to enter\exit or inside your home? * PCP [facility] * [facility]acy [facility] * Preadmission Environment Home with Family * ADLs Independent * Other Equipment WHEELCHAIR, SCOTTER, WALKER, SHOWER CHAIR * List name and contact numbers for known caregivers / representatives who currently or will assist patient after discharge: NAIF RIVERA - [facility]- [phone] * Verbal permission to speak to the caregivers and representatives has been obtained from the patient. Yes * Community resources currently utilized Home Health * Please name any agencies selected above. [facility] * Additional services required to return to the preadmission environment? No * Can the patient safely return to the preadmission environment? Yes * Has this patient been hospitalized within the prior 30 days at any hospital? Yes Coverage Notice Reviewer: [id number] Haseeb Rooney Notice Issued Date-Time: 05/26/2018 12:45 Notice Type: IM Discharge Notice Notice Delivered To: Patient Relationship to Patient: Financial Institution Vice President Name: Delivery Method: HAND - Hand Delivered Ivonne Days: Prior Verbal Notification: Recipient Understood Notice: Yes Recipient Signature: Yes Med Rec Note Co-signed by Attending: Coverage Notice Comment: Last DP export: 05/25/18 5:43 p Patient Name: BLADIMIR RIVERA Page 00638 at 1528 All edits/amendments must be made on the electronic document DICTATION DATE: 05/26/18 1528 CORRECTIONS IDENTIFICATION TECHNICIAN: DARREL 05/26/18 1528 RPT#: [id number] DC DATE: STATUS: ADM IN [facility] [address] [place] [address] END OF REPORT
--- NOTE | 2018-05-26 15:36 | MORECARE ---
CASE MANAGEMENT DISCHARGE SUMMARY PATIENT: BLADIMIR RIVERA UNIT: [id number] ADM DATE: 05/22/18 AGE: 82 : 33 SEX: M ROOM/BED: D.2121 AUTHOR: JORGE ZAMBRANO PHYSICIAN: REFERRING PHYSICIAN: DESTINI BARRERA MD DATE OF SERVICE: 05/26/18 Discharge Plan Patient Name: BLADIMIR RIVERA Facility: [facility]:[place] : 1935 Planned Disposition: Inpatient Rehab Anticipated Discharge Date: Discharge Date: Expected LOS: Initial Reviewer: [email or web address] Initial Review Date: 05/25/2018 Generated: 05/26/18 4:36 pm Comments DCP- Discharge Planning Updated by [email or web address]: Sav Rooney on 05/26/18 2:[address] Patient Name: BLADIMIR RIVERA Encounter No: [id number] : 1935 Primary Insurance: MEDICARE A & B Anticipated DC Date: Planned Disposition: Inpatient Rehab External Planned Provider: [facility] DCP follow-up note: CM SPOKE TO PHYSICAL THERAPIST WHO RECOMMENDS THAT PT WOULD BENEFIT FROM INPATIENT REHAB SERVICES PRIOR TO RETURN HOME. CM MET WITH PT IN ROOM TO DISCUSS DISCHARGE NEEDS AND PLANNING. CM DISCUSSED AVAILABILITY OF HOME HEALTH, REHAB SERVICES AND MEDICAL EQUIPMENT. PT IS THINKING OF RETURNING TO INPATIENT REHAB AT [place] IF THEY WILL TAKE HIM. PT IS ALSO THINKING THAT THE WANTS TO DISCUSS A "DNR" WITH HIS SON STATING "THE NEXT TIME [facility] CALLS ME, I HOPE THEY LET ME GO." IMPORTANT MESSAGE FROM MEDICARE PROVIDED AND EXPLAINED. CM SPOKE TO GIOVANNI OF [facility], THEY PLAN TO ACCEPT PT FOR INPATIENT REHAB WHEN MEDICALLY STABLE. WHEN PT IS STABLE FOR DISCHARGE, NOTIFY [facility]. MAKAYLA Galarza DCP- Discharge Planning Updated by [id number]: Pura Knowles on 05/25/18 5:[address] Patient Name: BLADIMIR RIVERA Admission Status: Urgent Accout number: [id number] Admission Date: 05-22-2018 : 1935 Admission Diagnosis:CARDIAC ARREST, CAUSE UNSPECIFIED Attending: DESTINI BARRERA Current LOS: 3 Anticipated DC Date: Planned Disposition: Home Primary Insurance: MEDICARE A & B Discharge Planning Comments: CM met with patient at bedside. Patient states he would like to return home but states he doesn't know if he will be able to. Patient was readmitted from Inpatient Rehab post code. Patient states that lives at home with his son Naif. He states that Naif works so he wouldn't have 24 hr. care. He states that he does have HH ([facility] from previous CM notes). Patient son Naif wasn't available to speak with at this time. Patient may need inpatient rehab or SNF before returning home. CM will continue to follow and assist as needed with discharge planning / needs. Feather Cutting Machine Feeder: Pura Knowles DCPIA - Discharge Planning Initial Assessment Updated by [email or web address]: Pura Knowles on 05/25/18 6:36 pm * Is the patient Alert and Oriented? Yes * How many steps to enter\\exit or inside your home? * PCP [facility] * [facility]acy [facility] * Preadmission Environment Home with Family * ADLs Independent * Other Equipment WHEELCHAIR, SCOTTER, WALKER, SHOWER CHAIR * List name and contact numbers for known caregivers / representatives who currently or will assist patient after discharge: NAIF RIVERA - SON- [phone] * Verbal permission to speak to the caregivers and representatives has been obtained from the patient. Yes * Community resources currently utilized Home Health * Please name any agencies selected above. [facility] * Additional services required to return to the preadmission environment? No * Can the patient safely return to the preadmission environment? Yes * Has this patient been hospitalized within the prior 30 days at any hospital? Yes Coverage Notice Reviewer: [id number] - Sav Rooney Notice Issued Date-Time: 05/26/2018 12:45 Notice Type: IM Discharge Notice Notice Delivered To: Patient Relationship to Patient: Vp Business Development Name: Delivery Method: HAND - Hand Delivered Ivonne Days: Prior Verbal Notification: Recipient Understood Notice: Yes Recipient Signature: Yes Med Rec Note Co-signed by Attending: Coverage Notice Comment: Last DP export: 05/26/18 2:28 p Patient Name: BLADIMIR RIVERA Page [id number] at 1536 All edits/amendments must be made on the electronic document DICTATION DATE: 05/26/181535 BAKER BENCH: DM 05/26/18 153 RPT#: [id number] DC DATE: STATUS: ADM IN [facility] [address] [place] [address] END OF REPORT
[2018-05-26 15:37] VITALS: BP 122/64
--- NOTE | 2018-05-26 15:43 | NUR ---
RESTING QUIETLY AGREE WITH DRYING MACHINE OPERATOR PACKAGE YARNS ASSESSMENT
--- NOTE | 2018-05-26 19:11 | NUR ---
RECIEVED UP IN BED WITH EYES OPEN. ALERT AND ORIENTED X4. IV TO RIGHHT FA INFILTRATED WITH BLOOD AND FLUID ON BEDDING. UPPER EXTREMITIES EDEMATOUS. LOWER EXTREMITIES HAVE TRACE EDEMA.REMAINS ON BEDREST.
[2018-05-26 20:38] VITALS: BP 131/76
[2018-05-26 23:40] VITALS: BP 123/75
[2018-05-27 05:21] VITALS: BP 119/65
[2018-05-27 06:24] LABS: BASOPHILS 0.2 % (0-2); EOSINOPHILS 0.8 % (0-7); HEMATOCRIT 30.4 % (42.0-54.0); HEMOGLOBIN 10.1 g/dL (13.5-17.5); IMMATURE GRANULOCYTES 1.5 % (0-5); MCH 29.4 pg (26.0-34.0); MCHC 33.2 g/dL (31.0-37.0); MCV 88.4 fL (80.0-100.0); MEAN PLATELET VOLUME 9.7 fL (7.4-10.4); MONOCYTES 8.6 % (2-11); NEUTROPHILS 68.9 % (40-80); PLATELET COUNT 193 10x3/uL (130-400); RBC 3.44 10x6/uL (4.20-6.10); RDW 16.4 % (11.5-14.5); WBC 5.3 10x3/uL (4.8-10.8)
[2018-05-27 06:28] LABS: CALCIUM 7.1 mg/dL (8.5-10.1); CARBON DIOXIDE 24.2 mmol/L (21.0-32.0); CHLORIDE - SERUM 105 mmol/L (98-107); CREATININE - SERUM 0.6 mg/dL (0.6-1.3); SODIUM 138 mmol/L (136-145); UREA NITROGEN 5 mg/dL (7-18); eGFR NON AFRICAN AMERICAN > 90 mL/min (90-120)
[2018-05-27 06:52] LABS: CALC OSMOLALITY 277 mosm/kg (275-300); GLUCOSE 195 mg/dL (74-106)
[2018-05-27 08:22] VITALS: BP 130/83
--- NOTE | 2018-05-27 09:55 | NUR ---
TELEMETRY PACED. UP AMBULATING HALLWAY WITH PT ASSIST. WILL CONT. PLAN OF CARE.
--- NOTE | 2018-05-27 10:03 | NUR ---
Rehab Prescreening Consult recieved and the chart has been reviewed. He meets criteria for readmit to the ARU when he is medically stable. He is still on IV Amiodarone. Discussed at length with the CM Manfred Rooney. Rosalina Wolf RN Clinical Liaison, Rehab
[2018-05-27 12:07] VITALS: BP 111/71
--- NOTE | 2018-05-27 12:23 | MORECARE ---
CASE MANAGEMENT DISCHARGE SUMMARY PATIENT: BLADIMIR RIVERA UNIT: [id number] ADM DATE: 05/22/18 AGE: 82 : 33 SEX: M ROOM/BED: D.2121 AUTHOR: JORGE ZAMBRANO PHYSICIAN: REFERRING PHYSICIAN: DESTINI BARRERA MD DATE OF SERVICE: 05/27/18 Discharge Plan Patient Name: BLADIMIR RIVERA Facility: [facility]:[place] : 1935 Planned Disposition: Inpatient Rehab Anticipated Discharge Date: 05/27/18 Discharge Date: Expected LOS: 5 Initial Reviewer: [id number] Initial Review Date: 05/25/2018 Generated: 05/27/18 1:22 pm Comments DCP- Discharge Planning Updated by [id number]: Sav Rooney on 05/26/18 2:[address] Patient Name: BLADIMIR RIVERA Encounter No: [id number] : 1935 Primary Insurance: MEDICARE A & B Anticipated DC Date: Planned Disposition: Inpatient Rehab External Planned Provider: [facility] DCP follow-up note: CM SPOKE TO PHYSICAL THERAPIST WHO RECOMMENDS THAT PT WOULD BENEFIT FROM INPATIENT REHAB SERVICES PRIOR TO RETURN HOME. CM MET WITH PT IN ROOM TO DISCUSS DISCHARGE NEEDS AND PLANNING. CM DISCUSSED AVAILABILITY OF HOME HEALTH, REHAB SERVICES AND MEDICAL EQUIPMENT. PT IS THINKING OF RETURNING TO INPATIENT REHAB AT [place] IF THEY WILL TAKE HIM. PT IS ALSO THINKING THAT THE WANTS TO DISCUSS A "DNR" WITH HIS SON STATING "THE NEXT TIME [facility] CALL[facility] ME, I HOPE THEY LET ME GO." IMPORTANT MESSAGE FROM MEDICARE PROVIDED AND EXPLAINED. CM SPOKE TO GIOVANNI OF [facility], THEY PLAN TO ACCEPT PT FOR INPATIENT REHAB WHEN MEDICALLY STABLE. WHEN PT IS STABLE FOR DISCHARGE, NOTIFY [facility]. MAKAYLA Galarza DCP- Discharge Planning Updated by [email or web address]: Pura Knowles on 05/25/18 5:[address] Patient Name: BLADIMIR RIVERA Admission Status: Urgent Accout number: [id number] Admission Date: 05-22-2018 : 1935 Admission Diagnosis:CARDIAC ARREST, CAUSE UNSPECIFIED Attending: DESTINI BARRERA Current LOS: 3 Anticipated DC Date: Planned Disposition: Home Primary Insurance: MEDICARE A & B Discharge Planning Comments: CM met with patient at bedside. Patient states he would like to return home but states he doesn't know if he will be able to. Patient was readmitted from Inpatient Rehab post code. Patient states that lives at home with his son Naif. He states that Naif works so he wouldn't have 24 hr. care. He states that he does have HH ([facility] from previous CM notes). Patient son Naif wasn't available to speak with at this time. Patient may need inpatient rehab or SNF before returning home. CM will continue to follow and assist as needed with discharge planning / needs. Wax Ball Molder: Pura Knowles DCPIA - Discharge Planning Initial Assessment Updated by [email or web address]: Pura Knowles on 05/25/18 6:36 pm * Is the patient Alert and Oriented? Yes * How many steps to enter\\exit or inside your home? * PCP [facility] * [facility]acy [facility] * Preadmission Environment Home with Family * ADLs Independent * Other Equipment WHEELCHAIR, SCOTTER, WALKER, SHOWER CHAIR * List name and contact numbers for known caregivers / representatives who currently or will assist patient after discharge: NAIF RIVERA - SON- [phone] * Verbal permission to speak to the caregivers and representatives has been obtained from the patient. Yes * Community resources currently utilized Home Health * Please name any agencies selected above. [facility] * Additional services required to return to the preadmission environment? No * Can the patient safely return to the preadmission environment? Yes * Has this patient been hospitalized within the prior 30 days at any hospital? Yes Coverage Notice Reviewer: [id number] Haseeb Rooney Notice Issued Date-Time: 05/26/2018 12:45 Notice Type: IM Discharge Notice Notice Delivered To: Patient Relationship to Patient: Cooling Pan Tender Name: Delivery Method: HAND - Hand Delivered Ivonne Days: Prior Verbal Notification: Recipient Understood Notice: Yes Recipient Signature: Yes Med Rec Note Co-signed by Attending: Coverage Notice Comment: Last DP export: 05/26/18 2:36 p Patient Name: BLADIMIR RIVERA Page [id number] at 1223 All edits/amendments must be made on the electronic document DICTATION DATE: 05/27/181221 NET FISHER: DARREL 05/27/18 122 RPT#: [id number] DC DATE: STATUS: ADM IN [facility] [address] [place] [place] [address] END OF REPORT
--- NOTE | 2018-05-27 12:32 | MORECARE ---
CASE MANAGEMENT DISCHARGE SUMMARY PATIENT: BLADIMIR RIVERA UNIT: [id number] ADM DATE: 05/22/18 AGE: 82 : 33 SEX: M ROOM/BED: D.2121 AUTHOR: KENYADOC PHYSICIAN: REFERRING PHYSICIAN: DESTINI BARRERA MD DATE OF SERVICE: 05/27/18 Discharge Plan Patient Name: BLADIMIR RIVERA Facility: [facility]:[place] : 1935 Planned Disposition: Inpatient Rehab Anticipated Discharge Date: 05/27/18 Discharge Date: Expected LOS: 5 Initial Reviewer: [id number] Initial Review Date: 05/25/2018 Generated: 05/27/18 1:31 pm Comments DCP- Discharge Planning Updated by [id number]: Sav Rooney on 05/27/18 11:[address] Patient Name: BLADIMIR RIVERA Encounter No: [id number] : 1935 Primary Insurance: MEDICARE A & B Anticipated DC Date: 05-27-2018 Planned Disposition: Inpatient Rehab External Planned Provider: [facility] DCP follow-up note: CM RECEIVED INPATIENT REHAB PRESCREENING ORDER, PT HAS INFORMED CM YESTERDAY HE WANTS REHAB AT [place]. 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 CM NOTIFIED SHEELA WISE. [facility] WILL ACCEPT PT AT DISCHARGE IF PHYSICIAN AGREES WITH AND DOCUMENTES NEW DIAGNOSIS OF CRITICAL ILLNESS MYOPATHY. CM TO CONTINUE TO FOLLOW AND ASSIST NEEDED. Sav Rooney, CASE MANAGEMENT DCP- Discharge Planning Updated by [id number]: Sav Rooney on 05/26/18 2:[address] Patient Name: BLADIMIR RIVERA Encounter No: [id number] : 1935 Primary Insurance: MEDICARE A & B Anticipated DC Date: Planned Disposition: Inpatient Rehab External Planned Provider: [facility] DCP follow-up note: CM SPOKE TO PHYSICAL THERAPIST WHO RECOMMENDS THAT PT WOULD BENEFIT FROM INPATIENT REHAB SERVICES PRIOR TO RETURN HOME. CM MET WITH PT IN ROOM TO DISCUSS DISCHARGE NEEDS AND PLANNING. CM DISCUSSED AVAILABILITY OF HOME HEALTH, REHAB SERVICES AND MEDICAL EQUIPMENT. PT IS THINKING OF RETURNING TO INPATIENT REHAB AT [place] IF THEY WILL TAKE HIM. PT IS ALSO THINKING THAT THE WANTS TO DISCUSS A "DNR" WITH HIS SON STATING "THE NEXT TIME [facility] CALL[facility] ME, I HOPE THEY LET ME GO." IMPORTANT MESSAGE FROM MEDICARE PROVIDED AND EXPLAINED. CM SPOKE TO GIOVANNI OF [facility], THEY PLAN TO ACCEPT PT FOR INPATIENT REHAB WHEN MEDICALLY STABLE. WHEN PT IS STABLE FOR DISCHARGE, NOTIFY [facility]. Sav Rooney, CASE MANAGEMENT DCP- Discharge Planning Updated by [id number]: Pura Knowles on 05/25/18 5:[address] Patient Name: BLADIMIR RIVERA Admission Status: Urgent Accout number: [id number] Admission Date: 05-22-2018 : 1935 Admission Diagnosis:CARDIAC ARREST, CAUSE UNSPECIFIED Attending: DESTINI BARRERA Current LOS: 3 Anticipated DC Date: Planned Disposition: Home Primary Insurance: MEDICARE A & B Discharge Planning Comments: CM met with patient at bedside. Patient states he would like to return home but states he doesn't know if he will be able to. Patient was readmitted from Inpatient Rehab post code. Patient states that lives at home with his son Naif. He states that Naif works so he wouldn't have 24 hr. care. He states that he does have HH ([facility] from previous CM notes). Patient son Naif wasn't available to speak with at this time. Patient may need inpatient rehab or SNF before returning home. CM will continue to follow and assist as needed with discharge planning / needs. Certified Health Education Specialist: Pura Knowles DCPIA - Discharge Planning Initial Assessment Updated by [email or web address]: Pura Knowles on 05/25/18 6:36 pm * Is the patient Alert and Oriented? Yes * How many steps to enter\\exit or inside your home? * PCP [facility] * [facility]acy [facility] * Preadmission Environment Home with Family * ADLs Independent * Other Equipment WHEELCHAIR, SCOTTER, WALKER, SHOWER CHAIR * List name and contact numbers for known caregivers / representatives who currently or will assist patient after discharge: NAIF RIVERA - SON- [phone] * Verbal permission to speak to the caregivers and representatives has been obtained from the patient. Yes * Community resources currently utilized Home Health * Please name any agencies selected above. [facility] * Additional services required to return to the preadmission environment? No * Can the patient safely return to the preadmission environment? Yes * Has this patient been hospitalized within the prior 30 days at any hospital? Yes Coverage Notice Reviewer: [id number] Haseeb Sav Peckwell Notice Issued Date-Time: 05/26/2018 12:45 Notice Type: IM Discharge Notice Notice Delivered To: Patient Relationship to Patient: Cook Helper Pastry Name: Delivery Method: HAND - Hand Delivered Ivonne Days: Prior Verbal Notification: Recipient Understood Notice: Yes Recipient Signature: Yes Med Rec Note Co-signed by Attending: Coverage Notice Comment: Last DP export: 05/27/18 11:22 a Patient Name: BLADIMIR RIVERA Page 31060 at 1232 All edits/amendments must be made on the electronic document DICTATION DATE: 05/27/18 1231 SMUDGER: DARREL 05/27/18 1231 RPT#: [id number] DC DATE: STATUS: ADM IN [facility] [address] [place] [address] END OF REPORT
[2018-05-27 12:49] LABS: MAGNESIUM - SERUM 1.4 mg/dL (1.8-2.4)
[2018-05-27 12:56] LABS: POTASSIUM - SERUM 3.7 mmol/L (3.5-5.1)
[2018-05-27 15:30] VITALS: BP 112/74
--- NOTE | 2018-05-27 15:52 | NUR ---
ML DCD DUE TO INFILTRATION.
[2018-05-27 20:57] VITALS: BP 124/70
--- NOTE | 2018-05-27 21:00 | NUR ---
ROUNDS COMPLETED VSS, AAOX3, NO S/S OF RR DISTRESS, RR EVEN AND UNLABORED. PT CURRENTLY RESTING IN BED SCHRADER CLAMPED FOR BLADDER TRAINING. MEDS GIVEN. PT DENIES ANY FURTHER NEEDS AT THIS TIME. WILL CTM. CL IN REACH, BED IN LOW, SR UP X2.
[2018-05-27 23:59] VITALS: BP 121/77
--- NOTE | 2018-05-28 04:42 | NUR ---
PT CURRENTLY RESTING IN BED WITH EYES CLOSED. PT STILL ON BLADDER TRAINING. WILL CPOC.
[2018-05-28 05:27] VITALS: BP 120/74
[2018-05-28 06:11] LABS: BASOPHILS 0.3 % (0-2); EOSINOPHILS 1.8 % (0-7); HEMATOCRIT 32.9 % (42.0-54.0); HEMOGLOBIN 10.6 g/dL (13.5-17.5); IMMATURE GRANULOCYTES 1.8 % (0-5); LYMPHOCYTES 22.7 % (15-50); MCH 28.8 pg (26.0-34.0); MCHC 32.2 g/dL (31.0-37.0); MCV 89.4 fL (80.0-100.0); MEAN PLATELET VOLUME 10.1 fL (7.4-10.4); MONOCYTES 9.3 % (2-11); NEUTROPHILS 64.1 % (40-80); RBC 3.68 10x6/uL (4.20-6.10); RDW 16.8 % (11.5-14.5); WBC 6.5 10x3/uL (4.8-10.8)
[2018-05-28 06:13] LABS: PLATELET COUNT 237 10x3/uL (130-400)
[2018-05-28 06:35] LABS: ALKALINE PHOSPHATASE 85 U/L (46-116); ALT (SGPT) 17 U/L (10-68); BILIRUBIN - TOTAL 0.85 mg/dL (0.2-1.3); CALCIUM 7.6 mg/dL (8.5-10.1); CARBON DIOXIDE 24.7 mmol/L (21.0-32.0); CHLORIDE - SERUM 105 mmol/L (98-107); CREATININE - SERUM 0.7 mg/dL (0.6-1.3); MAGNESIUM - SERUM 1.5 mg/dL (1.8-2.4); POTASSIUM - SERUM 3.5 mmol/L (3.5-5.1); PROTEIN - SERUM 5.7 g/dL (6.4-8.2); SODIUM 140 mmol/L (136-145); eGFR NON AFRICAN AMERICAN > 90 mL/min (90-120)
[2018-05-28 06:36] LABS: CALC OSMOLALITY 277 mosm/kg (275-300); GLUCOSE 117 mg/dL (74-106)
[2018-05-28 06:37] LABS: UREA NITROGEN 7 mg/dL (7-18)
[2018-05-28 08:41] VITALS: BP 118/72
--- NOTE | 2018-05-28 09:16 | NUR ---
TELEMETRY PACED. UP AMBULATING WITH PT ASSIST. WILL CONT. PLAN OF CARE.
--- NOTE | 2018-05-28 12:26 | NUR ---
SCHRADER CATH DCD WITH 10CC BULB AND 500CC CLEAR YELLOW OP. WILL MONITOR.
[2018-05-28 12:42] VITALS: BP 117/68
--- NOTE | 2018-05-28 14:03 | MORECARE ---
CASE MANAGEMENT DISCHARGE SUMMARY PATIENT: BLADIMIR RIVERA UNIT: [id number] ADM DATE: 05/22/18 AGE: 82 : 33 SEX: M ROOM/BED: D.2121 AUTHOR: KENYA,DOC PHYSICIAN: REFERRING PHYSICIAN: DESTINI BARRERA MD DATE OF SERVICE: 05/28/18 Discharge Plan Patient Name: BLADIMIR RIVERA Facility: [facility]:[place] : 1935 Planned Disposition: Inpatient Rehab Anticipated Discharge Date: 05/28/18 Discharge Date: Expected LOS: 6 Initial Reviewer: [id number] Initial Review Date: 05/25/2018 Generated: 05/28/18 3:03 pm Comments DCP- Discharge Planning Updated by [email or web address]: Sav Rooney on 05/28/18 1:[address] Patient Name: BLADIMIR RIVERA Encounter No: [id number] : 1935 Primary Insurance: MEDICARE A & B Anticipated DC Date: 05-28-2018 Planned Disposition: Inpatient Rehab External Planned Provider: [facility] DCP follow-up note: CM SPOKE TO DORIS MADERA, PT DISCHARGING TO INPATIENT REHAB TODAY PER GIOVANNI KAUR OF INPATIENT REHAB WAS INFORMED ANDTHEY PLAN TO ACCEPT PT TODAY FOR REHAB. [facility] TO CONTACT MED 2 NURSE WITH ROOM NUMBER WHEN READY TO ACCEPT PT AND NURSE REPORT. MAKAYLA Galarza DCP- Discharge Planning Updated by [id number]: Sav Rooney on 05/27/18 11:[address] Patient Name: BLADIMIR RIVERA Encounter No: [id number] : 1935 Primary Insurance: MEDICARE A & B Anticipated DC Date: 05-27-2018 Planned Disposition: Inpatient Rehab External Planned Provider: [facility] DCP follow-up note: CM RECEIVED INPATIENT REHAB PRESCREENING ORDER, PT HAS INFORMED CM YESTERDAY HE WANTS REHAB AT [place]. 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 CM NOTIFIED SHEELA WISE. [facility] WILL ACCEPT PT AT DISCHARGE IF PHYSICIAN AGREES WITH AND DOCUMENTES NEW DIAGNOSIS OF CRITICAL ILLNESS MYOPATHY. CM TO CONTINUE TO FOLLOW AND ASSIST NEEDED. MAKAYLA Galarza MANAGEMENT DCP- Discharge Planning Updated by [id number]: Sav Rooney on 05/26/18 2:[address] Patient Name: BLADIMIR RIVERA Encounter No: [id number] : 1935 Primary Insurance: MEDICARE A & B Anticipated DC Date: Planned Disposition: Inpatient Rehab External Planned Provider: [facility] DCP follow-up note: CM SPOKE TO PHYSICAL THERAPIST WHO RECOMMENDS THAT PT WOULD BENEFIT FROM INPATIENT REHAB SERVICES PRIOR TO RETURN HOME. CM MET WITH PT IN ROOM TO DISCUSS DISCHARGE NEEDS AND PLANNING. CM DISCUSSED AVAILABILITY OF HOME HEALTH, REHAB SERVICES AND MEDICAL EQUIPMENT. PT IS THINKING OF RETURNING TO INPATIENT REHAB AT [place] IF THEY WILL TAKE HIM. PT IS ALSO THINKING THAT THE WANTS TO DISCUSS A "DNR" WITH HIS SON STATING "THE NEXT TIME [facility] CALLS ME, I HOPE THEY LET ME GO." IMPORTANT MESSAGE FROM MEDICARE PROVIDED AND EXPLAINED. CM SPOKE TO GIOVANNI OF [facility], THEY PLAN TO ACCEPT PT FOR INPATIENT REHAB WHEN MEDICALLY STABLE. WHEN PT IS STABLE FOR DISCHARGE, NOTIFY [facility]. MAKAYLA Galarza DCP- Discharge Planning Updated by [id number]: Pura Knowles on 05/25/18 5:[address] Patient Name: BLADIMIR RIVERA Admission Status: Urgent Accout number: [id number] Admission Date: 05-22-2018 : 1935 Admission Diagnosis:CARDIAC ARREST, CAUSE UNSPECIFIED Attending: DESTINI BARRERA Current LOS: 3 Anticipated DC Date: Planned Disposition: Home Primary Insurance: MEDICARE A & B Discharge Planning Comments: CM met with patient at bedside. Patient states he would like to return home but states he doesn't know if he will be able to. Patient was readmitted from Inpatient Rehab post code. Patient states that lives at home with his son Naif. He states that Naif works so he wouldn't have 24 hr. care. He states that he does have HH ([facility] from previous CM notes). Patient son Naif wasn't available to speak with at this time. Patient may need inpatient rehab or SNF before returning home. CM will continue to follow and assist as needed with discharge planning / needs. Manager Of Supply Chain: Pura Knowles DCPIA - Discharge Planning Initial Assessment Updated by [email or web address]: Pura Knowles on 05/25/18 6:36 pm * Is the patient Alert and Oriented? Yes * How many steps to enter\\exit or inside your home? * PCP [facility] * Pharmacy [facility] * Preadmission Environment Home with Family * ADLs Independent * Other Equipment WHEELCHAIR, SCOTTER, WALKER, SHOWER CHAIR * List name and contact numbers for known caregivers / representatives who currently or will assist patient after discharge: NAIF RIVERA [facility]- [phone] * Verbal permission to speak to the caregivers and representatives has been obtained from the patient. Yes * Community resources currently utilized Home Health * Please name any agencies selected above. [facility] * Additional services required to return to the preadmission environment? No * Can the patient safely return to the preadmission environment? Yes * Has this patient been hospitalized within the prior 30 days at any hospital? Yes Coverage Notice Reviewer: [id number] Haseeb Rooney Notice Issued Date-Time: 05/26/2018 12:45 Notice Type: IM Discharge Notice Notice Delivered To: Patient Relationship to Patient: Project Management Manager Name: Delivery Method: HAND - Hand Delivered Ivonne Days: Prior Verbal Notification: Recipient Understood Notice: Yes Recipient Signature: Yes Med Rec Note Co-signed by Attending: Coverage Notice Comment: Last DP export: 05/27/18 11:32 a Patient Name: BLADIMIR RIVERA Page [id number] at 1403 All edits/amendments must be made on the electronic document DICTATION DATE: 05/28/18 1403 SCREEN PRINTING MACHINE OPERATOR HELPER: DARREL 05/28/18 1403 RPT#: [id number] DC DATE: STATUS: ADM IN [facility] [address] [place] [address] END OF REPORT
[2018-05-28] MEDS ORDERED: AMIODARONE HCL200 MG PO (15:56)
[2018-05-28] MEDS ORDERED: VIBRAMYCIN 100100 MG PO (15:58)
--- NOTE | 2018-05-28 16:42 | NUR ---
REPORT CALLED TO REHAB. TELEMETRY DCD. ESCORTED TO REHAB BY W/C.
--- NOTE | 2018-05-29 07:48 | MORECARE ---
CASE MANAGEMENT DISCHARGE SUMMARY PATIENT: BLADIMIR RIVERA UNIT: [id number] ADM DATE: 05/22/18 AGE: 82 : 33 SEX: M ROOM/BED: D.2121 AUTHOR: KENYA,DOC PHYSICIAN: REFERRING PHYSICIAN: DESTINI BARRERA MD DATE OF SERVICE: 05/29/18 Discharge Plan Patient Name: BLADIMIR RIVERA Facility: [facility]:[place] : 1935 Planned Disposition: Inpatient Rehab Anticipated Discharge Date: 05/28/18 Discharge Date: 05/28/2018 Expected LOS: 6 Initial Reviewer: [email or web address] Initial Review Date: 05/25/2018 Generated: 05/29/18 8:48 am Comments DCP- Discharge Planning Updated by [id number]: Sav Rooney on 05/28/18 1:[address] Patient Name: BLADIMIR RIVERA Encounter No: [id number] : 1935 Primary Insurance: MEDICARE A & B Anticipated DC Date: 05-28-2018 Planned Disposition: Inpatient Rehab External Planned Provider: [facility] DCP follow-up note: CM SPOKE TO DORIS MADERA, PT DISCHARGING TO INPATIENT REHAB TODAY PER GIOVANNI KAUR OF INPATIENT REHAB WAS INFORMED ANDTHEY PLAN TO ACCEPT PT TODAY FOR REHAB. [facility] TO CONTACT MED 2 NURSE WITH ROOM NUMBER WHEN READY TO ACCEPT PT AND NURSE REPORT. MAKAYLA Galarza DCP- Discharge Planning Updated by [email or web address]: Sav Rooney on 05/27/18 11:[address] Patient Name: BLADIMIR RIVERA Encounter No: [id number] : 1935 Primary Insurance: MEDICARE A & B Anticipated DC Date: 05-27-2018 Planned Disposition: Inpatient Rehab External Planned Provider: [facility] DCP follow-up note: CM RECEIVED INPATIENT REHAB PRESCREENING ORDER, PT HAS INFORMED CM YESTERDAY HE WANTS REHAB AT [place]. 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 CM NOTIFIED TABLE OPERATOR HANIG. [facility] WILL ACCEPT PT AT DISCHARGE IF PHYSICIAN AGREES WITH AND DOCUMENTES NEW DIAGNOSIS OF CRITICAL ILLNESS MYOPATHY. CM TO CONTINUE TO FOLLOW AND ASSIST NEEDED. Sav Rooney CASE MANAGEMENT DCP- Discharge Planning Updated by [id number]: Sav Rooney on 05/26/18 2:[address] Patient Name: BLADIMIR RIVERA Encounter No: [id number] : 1935 Primary Insurance: MEDICARE A & B Anticipated DC Date: Planned Disposition: Inpatient Rehab External Planned Provider: [facility] DCP follow-up note: CM SPOKE TO PHYSICAL THERAPIST WHO RECOMMENDS THAT PT WOULD BENEFIT FROM INPATIENT REHAB SERVICES PRIOR TO RETURN HOME. CM MET WITH PT IN ROOM TO DISCUSS DISCHARGE NEEDS AND PLANNING. CM DISCUSSED AVAILABILITY OF HOME HEALTH, REHAB SERVICES AND MEDICAL EQUIPMENT. PT IS THINKING OF RETURNING TO INPATIENT REHAB AT [place] IF THEY WILL TAKE HIM. PT IS ALSO THINKING THAT THE WANTS TO DISCUSS A "DNR" WITH HIS SON STATING "THE NEXT TIME [facility] CALL[facility] ME, I HOPE THEY LET ME GO." IMPORTANT MESSAGE FROM MEDICARE PROVIDED AND EXPLAINED. CM SPOKE TO GIOVANNI OF [facility], THEY PLAN TO ACCEPT PT FOR INPATIENT REHAB WHEN MEDICALLY STABLE. WHEN PT IS STABLE FOR DISCHARGE, NOTIFY [facility]. MAKAYLA Galarza DCP- Discharge Planning Updated by [id number]: Pura Knowles on 05/25/18 5:[address] Patient Name: BLADIMIR RIVERA Admission Status: Urgent Accout number: [id number] Admission Date: 05-22-2018 : 1935 Admission Diagnosis:CARDIAC ARREST, CAUSE UNSPECIFIED Attending: DESTINI BARRERA Current LOS: 3 Anticipated DC Date: Planned Disposition: Home Primary Insurance: MEDICARE A & B Discharge Planning Comments: CM met with patient at bedside. Patient states he would like to return home but states he doesn't know if he will be able to. Patient was readmitted from Inpatient Rehab post code. Patient states that lives at home with his son Naif. He states that Naif works so he wouldn't have 24 hr. care. He states that he does have HH ([facility] from previous CM notes). Patient son Naif wasn't available to speak with at this time. Patient may need inpatient rehab or SNF before returning home. CM will continue to follow and assist as needed with discharge planning / needs. Shopper'S Aide: Pura JONES - Discharge Planning Initial Assessment Updated by [email or web address]: Pura Knowles on 05/25/18 6:36 pm * Is the patient Alert and Oriented? Yes * How many steps to enter\\exit or inside your home? * PCP [facility] * Pharmacy [facility] * Preadmission Environment Home with Family * ADLs Independent * Other Equipment WHEELCHAIR, SCOTTER, WALKER, SHOWER CHAIR * List name and contact numbers for known caregivers / representatives who currently or will assist patient after discharge: NAIF RIVERA - SON- [phone] * Verbal permission to speak to the caregivers and representatives has been obtained from the patient. Yes * Community resources currently utilized Home Health * Please name any agencies selected above. [facility] * Additional services required to return to the preadmission environment? No * Can the patient safely return to the preadmission environment? Yes * Has this patient been hospitalized within the prior 30 days at any hospital? Yes Coverage Notice Reviewer: [id number] Haseeb Rooney Notice Issued Date-Time: 05/26/2018 12:45 Notice Type: IM Discharge Notice Notice Delivered To: Patient Relationship to Patient: Machine Container Washer Name: Delivery Method: HAND - Hand Delivered Ivonne Days: Prior Verbal Notification: Recipient Understood Notice: Yes Recipient Signature: Yes Med Rec Note Co-signed by Attending: Coverage Notice Comment: Last DP export: 05/28/18 1:03 p Patient Name: BLADIMIR RIVERA Page [id number] at 0748 All edits/amendments must be made on the electronic document DICTATION DATE: 05/29/1848 YARD ASSOCIATE: DARREL 05/29/1848 RPT#: [id number] DC DATE:05/28/18 STATUS: DIS IN [facility] [address] [place] [address] END OF REPORT
--- NOTE | 2018-06-01 10:03 | EC ---
PATIENT:BLADIMIR RIVERA DATE OF SERVICE: 05/22/18 SEX: M MEDICAL RECORD: [id number] DATE OF : [birth year] LOCATION:D.M2 D.212 AGE OF PATIENT: 82 ADMISSION DATE: 05/22/18 REFERRING PHYSICIAN: INTERPRETING PHYSICIAN: MAGGIE TORRE MD ECHOCARDIOGRAM REPORT ECHO CHARGES 4 ECHO COMPLETE Date: 05/22/14 CLINICAL DIAGNOSIS: S/P ARREST/ ASSESS ERF HX OF PACER ECHOCARDIOGRAPHIC MEASUREMENTS (adult normal given) AC root (d.<3.7cm) 2.8 cm LV Septum d (<1.2 cm> 1.5 cm Valve Excursion 1.4 cm LV Septum (systole) 1.7 cm Left Atria (s.<4.0cm> 4.6 cm LVPW d(<1.2cm) 1.3 cm RV (d.<2.3cm) 3.7 cm LVPW (sytole) 1.4 cm LV diastole(<5.6CM) 5.9 cm MV E-F(>70mm/sec) cm LV systole 4.5 cm LVOT Diameter 1.9 cm MV exc.(>10mm) 1.6 cm Est.ejection fraction (50-75%) % DOPPLER: LVIT cm/sec A 38.0 cm/sec E 96.0 cm/sec LA cm/sec RVSP 25 mmHg LVOT 78 cm/sec AOP1/2T m/s Asc. Ao 140 cm/sec RVOT 87 cm/sec RA cm/sec PA 99 cm/sec AV Gradient Peak 7.80 mmHg AV Mean 4.04 mmHg AV Area 1.7 cm MV Gradient Peak 5.85 mmHg MV Mean 1.89 mmHg MV Area cm COMMENTS: In Flight Crew Member: Maria Luisa STILES Waistband Setter Lockstitch: 1 Dr. Torre TAPE# PACS Pericardial Effusion N DATE OF SERVICE: 05/22/2018 ECHOCARDIOGRAM DATE OF SERVICE: 05/22/2018 FINDINGS: 1. Left ventricular chamber size is mildly dilated. Left ventricular systolic function is mildly depressed. Overall ejection fraction 35% to 40%. 2. Left atrium is enlarged at 4.6 cm. Right atrium and right ventricular ECHOCARDIOGRAM REPORT [id number] BLADIMIR RIVERA chamber sizes are as well mildly dilated. 3. Valvular structures have normal structure and motion. 4. Doppler interrogation reveals moderate mitral regurgitation, mild tricuspid regurgitation, no other valvular insufficiency or stenosis. 5. No evidence of pericardial effusion or left ventricular thrombus. TRANSINT:[id number] Voice Confirmation ID: [id number] DOCUMENT ID: [id number] MAGGIE TORRE MD at 1003 CC: [id number] DICTATION DATE: 05/22/18 1555 HOOD MAKER: 05/22/18 2330 DIS IN 05/28/18 [place] [id number] [place] [id number]
== END 2018-05-28 16:42 | DRG 208 ==
LOC: D.M2 10:27 → D.ICU 10:27 → D.M2 05-25 20:26
PROVIDERS: Emergency Medicine; Family Medicine; Internal Medicine Nephrology; ADMIT Emergency Medicine; ATTEND Emergency Medicine
PROC: 05HY33Z Insertion of Infusion Device into Upper Vein, Percutaneous Approach (ICD-10-PCS; principal; 2018-05-22)
PROC: 5A1945Z Respiratory Ventilation, 24-96 Consecutive Hours (ICD-10-PCS; 2018-05-22)
PROC: 0BH17EZ Insertion of Endotracheal Airway into Trachea, Via Natural or Artificial Opening (ICD-10-PCS; 2018-05-22)
DX: J96.00 Acute respiratory failure, unspecified whether with hypoxia or hypercapnia (principal); I46.9 Cardiac arrest, cause unspecified; E43 Unspecified severe protein-calorie malnutrition; I49.01 Ventricular fibrillation; I50.23 Acute on chronic systolic (congestive) heart failure; J69.0 Pneumonitis due to inhalation of food and vomit; J15.211 Pneumonia due to Methicillin susceptible Staphylococcus aureus; N17.9 Acute kidney failure, unspecified; E83.42 Hypomagnesemia; F03.90 Unspecified dementia, unspecified severity, without behavioral disturbance, psychotic disturbance, mood disturbance, and anxiety; E83.39 Other disorders of phosphorus metabolism; D50.9 Iron deficiency anemia, unspecified; Z66 Do not resuscitate; E78.5 Hyperlipidemia, unspecified; E11.9 Type 2 diabetes mellitus without complications; M10.9 Gout, unspecified; E53.8 Deficiency of other specified B group vitamins; I11.0 Hypertensive heart disease with heart failure; I27.20 Pulmonary hypertension, unspecified; Z68.23 Body mass index [BMI] 23.0-23.9, adult; D72.829 Elevated white blood cell count, unspecified; S00.83XA Contusion of other part of head, initial encounter; W01.0XXA Fall on same level from slipping, tripping and stumbling without subsequent striking against object, initial encounter; Y92.230 Patient room in hospital as the place of occurrence of the external cause

== ENCOUNTER 2018-05-28 16:06 | Inpatient (IN) | payer MEDICARE ==
[~2018-05-28] VITALS: Ht 167.6 cm; Wt 64.4 kg
[~2018-05-28 16:06] MED LIST changes: +AMIODARONE HCL200 MG PO; +VIBRAMYCIN 100100 MG PO
[2018-05-28 17:51] VITALS: BP 134/74; BMI 22.9
[2018-05-28 19:00] VITALS: BP 126/76
[2018-05-29 08:00] VITALS: BP 147/87
[2018-05-29 10:01] LABS: BASOPHILS 0.3 % (0-2); EOSINOPHILS 1.5 % (0-7); HEMATOCRIT 36.3 % (42.0-54.0); HEMOGLOBIN 11.4 g/dL (13.5-17.5); IMMATURE GRANULOCYTES 2.4 % (0-5); LYMPHOCYTES 16.3 % (15-50); MCH 29.1 pg (26.0-34.0); MCHC 31.4 g/dL (31.0-37.0); MEAN PLATELET VOLUME 10.1 fL (7.4-10.4); MONOCYTES 6.9 % (2-11); NEUTROPHILS 72.6 % (40-80); PLATELET COUNT 215 10x3/uL (130-400); RBC 3.92 10x6/uL (4.20-6.10); RDW 17.5 % (11.5-14.5); WBC 7.4 10x3/uL (4.8-10.8)
[2018-05-29 10:02] LABS: MCV 92.6 fL (80.0-100.0)
[2018-05-29 10:34] LABS: CHLORIDE - SERUM 105 mmol/L (98-107); CREATININE - SERUM 0.8 mg/dL (0.6-1.3); POTASSIUM - SERUM 3.9 mmol/L (3.5-5.1); SODIUM 140 mmol/L (136-145); eGFR NON AFRICAN AMERICAN > 90 mL/min (90-120)
[2018-05-29 10:35] LABS: CALC OSMOLALITY 283 mosm/kg (275-300); GLUCOSE 201 mg/dL (74-106); UREA NITROGEN 9 mg/dL (7-18)
[2018-05-29 13:25] VITALS: Ht 167.6 cm; Wt 64.4 kg
[2018-05-29 19:00] VITALS: BP 112/67
[2018-05-30 07:30] VITALS: BP 122/67
[2018-05-30 21:38] VITALS: BP 115/64
[2018-05-31 08:00] VITALS: BP 122/68
[2018-05-31 20:08] VITALS: BP 143/59
[2018-06-01 07:34] LABS: BASOPHILS 0.1 % (0-2); EOSINOPHILS 0 % (0-7); HEMATOCRIT 31.5 % (42.0-54.0); HEMOGLOBIN 9.9 g/dL (13.5-17.5); IMMATURE GRANULOCYTES 0.7 % (0-5); LYMPHOCYTES 20.2 % (15-50); MCH 28.8 pg (26.0-34.0); MCHC 31.4 g/dL (31.0-37.0); MCV 91.6 fL (80.0-100.0); MEAN PLATELET VOLUME 9.6 fL (7.4-10.4); MONOCYTES 8.2 % (2-11); NEUTROPHILS 70.8 % (40-80); PLATELET COUNT 186 10x3/uL (130-400); RBC 3.44 10x6/uL (4.20-6.10); RDW 17.9 % (11.5-14.5); WBC 7.2 10x3/uL (4.8-10.8)
[2018-06-01 07:42] LABS: CALC OSMOLALITY 281 mosm/kg (275-300); CALCIUM 7.8 mg/dL (8.5-10.1); CARBON DIOXIDE 25.7 mmol/L (21.0-32.0); CHLORIDE - SERUM 104 mmol/L (98-107); CREATININE - SERUM 0.7 mg/dL (0.6-1.3); GLUCOSE 114 mg/dL (74-106); POTASSIUM - SERUM 3.6 mmol/L (3.5-5.1); SODIUM 141 mmol/L (136-145); UREA NITROGEN 12 mg/dL (7-18); eGFR NON AFRICAN AMERICAN > 90 mL/min (90-120)
[2018-06-01 08:17] VITALS: BP 132/73
[2018-06-01 19:00] VITALS: BP 114/64
[2018-06-02 08:00] VITALS: BP 133/67
[2018-06-02 19:00] VITALS: BP 136/68
[2018-06-03 07:17] LABS: BASOPHILS 0.3 % (0-2); EOSINOPHILS 0 % (0-7); HEMATOCRIT 31.6 % (42.0-54.0); IMMATURE GRANULOCYTES 0.5 % (0-5); MCH 29.1 pg (26.0-34.0); MCHC 31.6 g/dL (31.0-37.0); MCV 91.9 fL (80.0-100.0); MEAN PLATELET VOLUME 9.6 fL (7.4-10.4); MONOCYTES 10.7 % (2-11); NEUTROPHILS 63.5 % (40-80); PLATELET COUNT 207 10x3/uL (130-400); RBC 3.44 10x6/uL (4.20-6.10); WBC 5.9 10x3/uL (4.8-10.8)
[2018-06-03 07:23] LABS: CALC OSMOLALITY 277 mosm/kg (275-300); CALCIUM 8.6 mg/dL (8.5-10.1); CARBON DIOXIDE 27.2 mmol/L (21.0-32.0); CHLORIDE - SERUM 102 mmol/L (98-107); CREATININE - SERUM 0.8 mg/dL (0.6-1.3); GLUCOSE 132 mg/dL (74-106); SODIUM 138 mmol/L (136-145); UREA NITROGEN 12 mg/dL (7-18); eGFR NON AFRICAN AMERICAN > 90 mL/min (90-120)
[2018-06-03 08:00] VITALS: BP 131/98
[2018-06-03 19:00] VITALS: BP 111/66
[2018-06-04 08:00] VITALS: BP 123/60
[2018-06-04 19:44] VITALS: BP 104/53
[2018-06-05 07:57] VITALS: BP 132/75
[2018-06-05 20:48] VITALS: BP 126/70
[2018-06-06 08:32] VITALS: BP 120/63
[2018-06-06 20:00] VITALS: BP 122/60
[2018-06-07 07:47] VITALS: BP 127/65
[2018-06-07 22:03] VITALS: BP 106/61
[2018-06-08 07:50] LABS: BASOPHILS 0.3 % (0-2); EOSINOPHILS 1.3 % (0-7); HEMATOCRIT 37.6 % (42.0-54.0); IMMATURE GRANULOCYTES 0.8 % (0-5); LYMPHOCYTES 26.9 % (15-50); MCH 30.2 pg (26.0-34.0); MCHC 31.9 g/dL (31.0-37.0); MCV 94.5 fL (80.0-100.0); MEAN PLATELET VOLUME 9.8 fL (7.4-10.4); MONOCYTES 10.6 % (2-11); NEUTROPHILS 60.1 % (40-80); PLATELET COUNT 326 10x3/uL (130-400); RBC 3.98 10x6/uL (4.20-6.10); RDW 18.6 % (11.5-14.5); WBC 7.9 10x3/uL (4.8-10.8)
[2018-06-08 08:00] VITALS: BP 122/62
[2018-06-08 08:05] LABS: CALC OSMOLALITY 279 mosm/kg (275-300); CALCIUM 8.9 mg/dL (8.5-10.1); CARBON DIOXIDE 24.4 mmol/L (21.0-32.0); CHLORIDE - SERUM 100 mmol/L (98-107); GLUCOSE 149 mg/dL (74-106); POTASSIUM - SERUM 4.6 mmol/L (3.5-5.1); SODIUM 136 mmol/L (136-145); UREA NITROGEN 26 mg/dL (7-18); eGFR NON AFRICAN AMERICAN 76 mL/min (90-120)
[2018-06-08 19:12] VITALS: BP 151/49
[2018-06-09 07:32] VITALS: BP 130/69
[2018-06-09 21:29] VITALS: BP 119/62
[2018-06-10 07:58] VITALS: BP 127/66
[2018-06-10 08:30] LABS: BASOPHILS 0.3 % (0-2); EOSINOPHILS 0.9 % (0-7); HEMATOCRIT 39.6 % (42.0-54.0); HEMOGLOBIN 12.5 g/dL (13.5-17.5); IMMATURE GRANULOCYTES 0.9 % (0-5); LYMPHOCYTES 33.4 % (15-50); MCH 30.3 pg (26.0-34.0); MCHC 31.6 g/dL (31.0-37.0); MCV 95.9 fL (80.0-100.0); MEAN PLATELET VOLUME 10.1 fL (7.4-10.4); MONOCYTES 11.3 % (2-11); NEUTROPHILS 53.2 % (40-80); PLATELET COUNT 341 10x3/uL (130-400); RBC 4.13 10x6/uL (4.20-6.10); RDW 18.5 % (11.5-14.5); WBC 9.2 10x3/uL (4.8-10.8)
[2018-06-10 08:45] LABS: CALC OSMOLALITY 275 mosm/kg (275-300); CALCIUM 9.5 mg/dL (8.5-10.1); CARBON DIOXIDE 24.5 mmol/L (21.0-32.0); CHLORIDE - SERUM 100 mmol/L (98-107); CREATININE - SERUM 0.9 mg/dL (0.6-1.3); GLUCOSE 149 mg/dL (74-106); POTASSIUM - SERUM 4.6 mmol/L (3.5-5.1); SODIUM 134 mmol/L (136-145); UREA NITROGEN 26 mg/dL (7-18); eGFR NON AFRICAN AMERICAN 85 mL/min (90-120)
[2018-06-10 20:02] VITALS: BP 122/60
[2018-06-11 08:01] VITALS: BP 106/61
== END 2018-06-11 13:52 | disposition home health service (06) | DRG 91 ==
LOC: D.REHAB 16:06
PROVIDERS: ADMIT Emergency Medicine; ATTEND Emergency Medicine
DX: G72.81 Critical illness myopathy (principal); E43 Unspecified severe protein-calorie malnutrition; J96.00 Acute respiratory failure, unspecified whether with hypoxia or hypercapnia; I50.22 Chronic systolic (congestive) heart failure; K92.2 Gastrointestinal hemorrhage, unspecified; N17.9 Acute kidney failure, unspecified; I11.0 Hypertensive heart disease with heart failure; I20.9 Angina pectoris, unspecified; F03.90 Unspecified dementia, unspecified severity, without behavioral disturbance, psychotic disturbance, mood disturbance, and anxiety; M81.0 Age-related osteoporosis without current pathological fracture; A49.01 Methicillin susceptible Staphylococcus aureus infection, unspecified site; E83.42 Hypomagnesemia; E83.39 Other disorders of phosphorus metabolism; Z68.22 Body mass index [BMI] 22.0-22.9, adult; D50.9 Iron deficiency anemia, unspecified; E78.5 Hyperlipidemia, unspecified; M10.9 Gout, unspecified; E53.8 Deficiency of other specified B group vitamins; E11.65 Type 2 diabetes mellitus with hyperglycemia; R13.11 Dysphagia, oral phase

== ENCOUNTER 2018-07-17 04:14 | Inpatient (IN) | payer MEDICARE ==
[2018-07-17 05:17] LABS: BASOPHILS 0.2 % (0-2); EOSINOPHILS 0.5 % (0-7); HEMOGLOBIN 13.7 g/dL (13.5-17.5); IMMATURE GRANULOCYTES 0.5 % (0-5); LYMPHOCYTES 27.6 % (15-50); MCH 31.5 pg (26.0-34.0); MCHC 33.4 g/dL (31.0-37.0); MCV 94.3 fL (80.0-100.0); MEAN PLATELET VOLUME 9.7 fL (7.4-10.4); MONOCYTES 6.8 % (2-11); NEUTROPHILS 64.4 % (40-80); RBC 4.35 10x6/uL (4.20-6.10); RDW 15.9 % (11.5-14.5); WBC 12.4 10x3/uL (4.8-10.8)
[2018-07-17 05:21] LABS: APTT 23.4 SECONDS (22.8-39.4); INR 1.02 (0.85-1.17); PLATELET COUNT 269 10x3/uL (130-400); PROTIME 12.9 SECONDS (11.6-15.0)
[2018-07-17 05:28] LABS: ALBUMIN 3.6 g/dL (3.4-5.0); ALKALINE PHOSPHATASE 79 U/L (46-116); ALT (SGPT) 26 U/L (10-68); BILIRUBIN - TOTAL 0.67 mg/dL (0.2-1.3); CALC OSMOLALITY 288 mosm/kg (275-300); CALCIUM 9.3 mg/dL (8.5-10.1); CHLORIDE - SERUM 100 mmol/L (98-107); CREATININE - SERUM 1.2 mg/dL (0.6-1.3); GLUCOSE 153 mg/dL (74-106); POTASSIUM - SERUM 4.4 mmol/L (3.5-5.1); PROTEIN - SERUM 7.7 g/dL (6.4-8.2); SODIUM 141 mmol/L (136-145); UREA NITROGEN 26 mg/dL (7-18); eGFR NON AFRICAN AMERICAN 61 mL/min (90-120)
--- NOTE | 2018-07-17 05:37 | NUR ---
URINE SENT TO LAB
[2018-07-17 05:39] LABS: APPEARANCE CLEAR (CLEAR); COLOR YELLOW (YELLOW)
[2018-07-17 05:40] LABS: BILIRUBIN NEGATIVE (NEGATIVE); GLUCOSE 50 mg/dL (NEGATIVE); KETONE MODERATE mg/dL (NEGATIVE); NITRITE NEGATIVE (NEGATIVE); PROTEIN NEGATIVE (NEGATIVE); UROBILINOGEN NORMAL (NORMAL)
[2018-07-17 05:40] LABS: CKMB 1.1 U/L (0.0-3.6); CREATINE KINASE 34 UL (21-232); MAGNESIUM - SERUM 1.3 mg/dL (1.8-2.4); THYROID STIMULATING HORMONE 3.43 uIU/mL (0.36-3.74); TROPONIN-I 0.028 ng/mL (0.000-0.060)
[2018-07-17 05:50] LABS: UDS - AMPHET NEGATIVE QUAL (NEGATIVE); UDS - BARB NEGATIVE QUAL (NEGATIVE); UDS - BENZO NEGATIVE QUAL (NEGATIVE); UDS - COCAINE NEGATIVE QUAL (NEGATIVE); UDS - OPIATE NEGATIVE QUAL (NEGATIVE); UDS - PCP NEGATIVE QUAL (NEGATIVE); UDS - THC NEGATIVE QUAL (NEGATIVE)
--- NOTE | 2018-07-17 14:23 | NUR ---
PT TO FLOOR VIA BED. PT ALERT TO PERSON. REORIENTED PT TO TIME, SITUATION, AND PLACE. NO EDEMA NOTED. LUNGS CLEAR. HEART PACED 83 ON TELE. VITALS STABLE. NS @ 75 ML/HR, MAG SULFATE @100 ML/HR, TO L WRIST IV, PATENT, NO REDNESS OR EDEMA NOTED, DRSG C/D/I. INCONTINENT OF BOWEL AND BLADDER. PREVIOUS BERLIN HOLE INDINTIONS TO HEAD. BREATHING EVEN AN UNLABORED, RM AIR. DENIES PAIN AT THIS TIME. STATES FEELING NAUSEOUS, BURPING NOTED. FALL PRECAUTIONS IN PLACE. NABEEL MAT ON. WHITE BED ALARM ON. NON SKID SOCKS ON. BED LOWERED AND LOCKED. CL IN REACH. WILL CTM .
[2018-07-17 16:04] LABS: % SATURATION 20 % (15-55); IRON 56 ug/dl (35-150); TOTAL IRON BIND CAPACITY 267 ug/dl (260-445); UNSAT IRON BIND CAPACITY 211 ug/dl (150-375)
[2018-07-17 17:22] VITALS: BMI 21.0
--- NOTE | 2018-07-17 17:29 | NUR ---
INCONTINENT CARE PROVIDED. PT BM LOOSE/WATERY/LIGHT BROWN IN COLOR. PT UNABLE TO CONTROL URGE TO HAVE BM. CLEAN LINENS APPLIED.
--- NOTE | 2018-07-17 17:36 | NUR ---
ASSESSMENT COMPLETE PT CONFUSED RESP UNLABORED TELEMETRY PLACED PACED AT 80 LT WRIST IV PATENT WITHOUT DIFFICULTY
[2018-07-17 17:45] VITALS: BP 125/72
--- NOTE | 2018-07-17 19:45 | NUR ---
ROUNDS COMPLETED. VSS, PT ALERT, BUT COMFUSED. PT FOUND MUMBLING OUT WORDS TO HIMSELF. PT C/O NEED TO URINATE. PROVIDED A WITH A URINAL. PT DENIES ANY NEED FOR PAIN AT THIS TIME. WILL CTM.
[2018-07-17 20:00] VITALS: BP 134/69
--- NOTE | 2018-07-17 23:57 | NUR ---
PT WAS FOUND SCREAMING "I CAN'T PEE, PLEASE HELP ME PEE." DID A QUICK BLADDER SCAN. PT WAS RETAINING 453. PERFORMED A QUICK IN AND OUT ON PT. PT PUT OUT 450CC'S. PT VOICED THANKS. PT CURRENTLY LAYING IN BED. DENIES CRISTIANO FURTHER NEEDS AT THIS TIME.
[2018-07-18] VITALS (7 sets, daily range): BP systolic 100–123; BP diastolic 54–72
--- NOTE | 2018-07-18 02:19 | NUR ---
PT C/O NAUSEA. PRN IV ZOFRAN GIVEN AT THIS TIME. WILL CTM.
[2018-07-18 05:34] LABS: BASOPHILS 0.1 % (0-2); EOSINOPHILS 0 % (0-7); HEMATOCRIT 36.8 % (42.0-54.0); HEMOGLOBIN 12.4 g/dL (13.5-17.5); IMMATURE GRANULOCYTES 0.2 % (0-5); LYMPHOCYTES 20.9 % (15-50); MCH 30.7 pg (26.0-34.0); MCHC 33.7 g/dL (31.0-37.0); MEAN PLATELET VOLUME 9.6 fL (7.4-10.4); MONOCYTES 8.6 % (2-11); NEUTROPHILS 70.2 % (40-80); RBC 4.04 10x6/uL (4.20-6.10); RDW 15.6 % (11.5-14.5)
[2018-07-18 05:44] LABS: MCV 91.1 fL (80.0-100.0); PLATELET COUNT 213 10x3/uL (130-400); WBC 8.1 10x3/uL (4.8-10.8)
[2018-07-18 05:48] LABS: INR 1.1 (0.85-1.17); PROTIME 13.7 SECONDS (11.6-15.0)
[2018-07-18 05:55] LABS: ALKALINE PHOSPHATASE 72 U/L (46-116); ALT (SGPT) 24 U/L (10-68); CALCIUM 8.1 mg/dL (8.5-10.1); CHLORIDE - SERUM 99 mmol/L (98-107); GLUCOSE 157 mg/dL (74-106); MAGNESIUM - SERUM 1.6 mg/dL (1.8-2.4); PHOSPHOROUS 2.6 mg/dL (2.5-4.9); PROTEIN - SERUM 6.4 g/dL (6.4-8.2); SODIUM 135 mmol/L (136-145)
[2018-07-18 06:03] LABS: CALC OSMOLALITY 272 mosm/kg (275-300); CREATININE - SERUM 0.8 mg/dL (0.6-1.3); UREA NITROGEN 13 mg/dL (7-18); eGFR NON AFRICAN AMERICAN > 90 mL/min (90-120)
[2018-07-18 06:04] LABS: CARBON DIOXIDE 22.9 mmol/L (21.0-32.0); POTASSIUM - SERUM 2.9 mmol/L (3.5-5.1)
--- NOTE | 2018-07-18 06:16 | NUR ---
PT POTASSIUM 2.9 2 20MEQ POWDER GIVEN AT THIS TIME. WILL CTM.
[2018-07-18 08:13] LABS: FOLATE (FOLIC ACID) - SERUM >20.0 ng/mL (>3.0)
--- NOTE | 2018-07-18 11:15 | NUR ---
24 HOUR URINE COLLECTION STARTED FOR POTASSIUM. DOES NOT HAVE TO BE ON ICE PER LAB. CONTAINER PLACED IN ROOM FOR COLLECTION.
--- NOTE | 2018-07-18 16:53 | NUR ---
I have reviewed this patient and I concur with the Shift Assessment completed by the Licensed Practical Nurse today this shift.
--- NOTE | 2018-07-18 19:32 | NUR ---
INITIAL ROUNDS COMPLETED. PT DENIES ANY DISCOMFORT. SPEECH CLEAR BUT PT TOTALLY DISORIENTED. DOES NOT KNOW NAME. STATES WAITING FOR JOSE. SR UP X2,CALL LIGHT WITHIN REACH AND BED ALARM ON.
--- NOTE | 2018-07-18 21:59 | NUR ---
INITIAL ROUNDS COMPLETED AT 1999 HRS. PT INCONTINENT OF STOOL. INCONTINENT CARE DONE. PT ABLE TO TURN SELF WITHOUT DIFFICULTY. PT ALERT, DISORIENTED TO PERSON, PLACE, TIME AND SITUATION. IV TO R WRIST SL. LUNGS DIMINISHED IN BASES BILAT. BUTTOCKS RED. SCHRADER DRAINING YELOOW URINE. PM MEDS GIVEN INCLUDING KCL 40 ME FOR K+ OF 3.4. PT SWALLOWED PILLS WITHOUT DIFFICULTY. PT INCONTINENT OF LOOSE SARAH BETH AT MED PASS. INCONTINENT CARE DONE. PT CURRENTLY RESTING WITH EYES CLOSED. RESP EVEN AND REGULAR. VSS. PACED RHYTHM PER CM HR 75. SR UP X2, CALL LIGHT WITHIN REACH AND BED ALARM ON.
--- NOTE | 2018-07-19 00:30 | NUR ---
PT INCONTINENT OF STOOL. INCONTINENT CARE DONE. DENIS'S BUTT PASTE APPLIED TO BUTTOCKS. REPOSITONED IN BED FOR COMFORT. SR UP X2,CALL LIGHT WITHIN REACH AND BED ALARM ON.
--- NOTE | 2018-07-19 02:02 | NUR ---
PT RESTING WITH EYES CLOSED. RESP EVEN AND REGULAR. SR UP X2,CALL LIGHT WITHIN REACH.
--- NOTE | 2018-07-19 03:58 | NUR ---
PT AWAKE; DENIES ANY DISCOMFORT. CONTINUES TO BE CONFUSED. NO CHANGE IN NEURO STATUS NOTED. SR UP X2, CALL LIGHT WITHIN REACH AND BED ALARM ON.
[2018-07-19 04:30] VITALS: BP 103/56
[2018-07-19 05:34] LABS: BASOPHILS 0 % (0-2); EOSINOPHILS 0.4 % (0-7); HEMATOCRIT 36.8 % (42.0-54.0); HEMOGLOBIN 12.4 g/dL (13.5-17.5); IMMATURE GRANULOCYTES 0.4 % (0-5); LYMPHOCYTES 18.7 % (15-50); MCH 31.2 pg (26.0-34.0); MCHC 33.7 g/dL (31.0-37.0); MCV 92.7 fL (80.0-100.0); MEAN PLATELET VOLUME 9.4 fL (7.4-10.4); MONOCYTES 8.1 % (2-11); NEUTROPHILS 72.4 % (40-80); PLATELET COUNT 194 10x3/uL (130-400); RBC 3.97 10x6/uL (4.20-6.10); RDW 15.5 % (11.5-14.5)
[2018-07-19 05:45] LABS: CALC OSMOLALITY 269 mosm/kg (275-300); CARBON DIOXIDE 21.9 mmol/L (21.0-32.0); CHLORIDE - SERUM 100 mmol/L (98-107); CREATININE - SERUM 0.9 mg/dL (0.6-1.3); GLUCOSE 138 mg/dL (74-106); POTASSIUM - SERUM 3.9 mmol/L (3.5-5.1); SODIUM 134 mmol/L (136-145); UREA NITROGEN 12 mg/dL (7-18); eGFR NON AFRICAN AMERICAN 85 mL/min (90-120)
--- NOTE | 2018-07-19 06:27 | NUR ---
VSS THROUGHOUT NIGHT. PACED RHYTHM PER CM. PT INCONTINENT OF STOOL NUMEROUS TIMES DURING SHIFT. AM FSBS 3.9. NEEDS MET;WILL CONTINUETO MONITOR.
[2018-07-19 07:56] VITALS: BP 108/63
[2018-07-19 11:22] VITALS: BP 110/70
--- NOTE | 2018-07-19 14:49 | MORECARE ---
CASE MANAGEMENT DISCHARGE SUMMARY PATIENT: BLADIMIR RIVERA UNIT: [id number] ADM DATE: 07/17/18 AGE: 82 : 33 SEX: M ROOM/BED: D.2131 AUTHOR: JORGE ZAMBRANO PHYSICIAN: REFERRING PHYSICIAN: TEODORO BLOCK MD DATE OF SERVICE: 07/19/18 Discharge Plan Patient Name: BLADIMIR RIVERA Facility: [facility]:[place] : 1935 Planned Disposition: Home Anticipated Discharge Date: Discharge Date: Expected LOS: Initial Reviewer: [email or web address] Initial Review Date: 07/19/2018 Generated: 07/19/18 3:49 pm Comments DCP- Discharge Planning Updated by [email or web address]: Rachel Davenport on 07/19/18 1:[address] Patient Name: BLADIMIR RIVERA Admission Status: ER Accout number: [id number] Admission Date: 07-17-2018 : 1935 Admission Diagnosis: Attending: TEODORO BLOCK Current LOS: 2 Anticipated DC Date: Planned Disposition: Home Primary Insurance: MEDICARE A & B Discharge Planning Comments: CM met with patient about discharge planning. CM explained CM role and verbal consent was given to do dc assessment. CM educated on Home Health, DME and rehab services that are available. Patient states hIs discharge plan is to return to home alone with beronica Sherwood thatis helping take care of him.. States home environment is safe discharge. Denies any discharge planning needs at this time.. . States beronica Sherwood will drive him home upon discharge. CM will continue to follow and assist as needed with discharge planning needs. Inspector Precision: Rachel Davenport DCP- Discharge Planning Updated by [email or web address]: Sav Rooney on 07/17/18 3:[address] Patient Name: BLADIMIR RIVERA Admission Status: ER Accout number: [id number] Admission Date: 07-17-2018 : 1935 Admission Diagnosis: Attending: TEODORO BLOCK Current LOS: 1 Anticipated DC Date: Planned Disposition: Primary Insurance: MEDICARE A & B Discharge Planning Comments: CM ATTEMPTED TO MEET WITH PT FOR INITIAL ASSESSMENT OF DISCHARGE NEEDS. PT SEEMS CONFUSED, REPEATS THAT HE IS TRYING TO PEE, CAN'T SEE AND HURTS BUT DOES NOT KNOW WHERE. BEDSIDE NURSE NOTIFIED. CM TO ATTEMPT ASSESSMENT OF PT AT A LATER TIME WHEN PT IS MORE STABLE AND ABLE TO PARTICIPATE IN ASSESSMENT. Inspector Precision: Sav Rooney DCPIA - Discharge Planning Initial Assessment Updated by [email or web address]: Rachel Davenport on 07/19/18 2:46 pm * Is the patient Alert and Oriented? Yes * How many steps to enter\exit or inside your home? NA * PCP [facility] * Pharmacy [facility] [place] * Preadmission Environment Home with Family * ADLs Independent * List name and contact numbers for known caregivers / representatives who currently or will assist patient after discharge: BERONICA SHERWOOD [phone] * Verbal permission to speak to the caregivers and representatives has been obtained from the patient. Yes * Community resources currently utilized None * Additional services required to return to the preadmission environment? No * Can the patient safely return to the preadmission environment? Yes * Has this patient been hospitalized within the prior 30 days at any hospital? No Patient Name: BLADIMIR RIVERA Page [id number] at 1449 All edits/amendments must be made on the electronic document DICTATION DATE: 07/19/181447 FRAME ALIGNER: DARREL 07/19/181447 RPT#: [id number] [place] DATE: STATUS: ADM IN [facility] [address] [place] [address] END OF REPORT
[2018-07-19 16:49] VITALS: BP 100/55
--- NOTE | 2018-07-19 19:26 | NUR ---
INITIAL ROUNDS COMPLETED. PT DENIES ANY DISCOMFORT. SR UPX2,CALL LIGHT WITHIN REACH.
[2018-07-19 19:58] LABS: POTASSIUM - URINE 36.8 MMOL/L (12.0-62.0)
[2018-07-19 20:07] VITALS: BP 109/55
--- NOTE | 2018-07-19 20:08 | NUR ---
ASSESSMENT COMPLETED AT 1945 HRS. VSS. PACED RHYTHM PER CM HR 77. PT ALERT, ORIENTED TOPERSONA ND PLACE. REORIENTED TOTIME AND SITUATION. IV TO L WRIST SL. LUNGS DIMINSHED IN BASES BILAT. BRUISES NOTED TO BILAT HANDS AND ARMS. BUTTOCKS RED. PT INCONTINENT OF STOOL. INCONTINENT CARE DONE. SCHRADER DRAINING YELLOW URINE. DENEIS ANY DISCOMFORT. SR UP X2,CALL LIGHT WITHIN REACH AND BED ALARM ON.
--- NOTE | 2018-07-19 21:26 | NUR ---
PT INCONTINENT OF STOOL. INCONTINENT CARE DONE. PM MEDS GIVEN PER ORDERS. PT SWALLOWED MEDS WITHOUT DIFFICULTY. SR UP X2, CALL LIGHT WITHIN REACH AND BED ALARM ON.
[2018-07-19 23:49] VITALS: BP 103/54
--- NOTE | 2018-07-20 00:23 | NUR ---
PT AWAKE; DENIES ANY DISCOMFORT. PT CLEAN AND DRY AT THIS TIME. SR UP X2,CALL LIGHT WITHIN REACH AND BED ALARM ON.
--- NOTE | 2018-07-20 02:20 | NUR ---
PT RESTING WITH EYES CLOSED. RESP EVEN AND REGULAR. SR UP X2, CALL LIGHT WITHIN REACH AND BED ALARM ON.
--- NOTE | 2018-07-20 04:15 | NUR ---
PT INCONTINENT OF STOOL. INCONTINENT CARE DONE. PT MOVED SLEFIN BED WITHOUT DIFFICULTY. SR UPX2, CALL LIGHT WITHIN REACH.
[2018-07-20 04:23] VITALS: BP 104/60
[2018-07-20 05:23] LABS: BASOPHILS 0 % (0-2); EOSINOPHILS 0.9 % (0-7); HEMATOCRIT 37.3 % (42.0-54.0); HEMOGLOBIN 12.4 g/dL (13.5-17.5); IMMATURE GRANULOCYTES 0.4 % (0-5); LYMPHOCYTES 16.6 % (15-50); MCHC 33.2 g/dL (31.0-37.0); MCV 93.3 fL (80.0-100.0); MEAN PLATELET VOLUME 9.3 fL (7.4-10.4); MONOCYTES 6.5 % (2-11); NEUTROPHILS 75.6 % (40-80); PLATELET COUNT 162 10x3/uL (130-400); RDW 15.5 % (11.5-14.5); WBC 6.9 10x3/uL (4.8-10.8)
[2018-07-20 05:36] LABS: CALC OSMOLALITY 269 mosm/kg (275-300); CALCIUM 8.4 mg/dL (8.5-10.1); CARBON DIOXIDE 25.1 mmol/L (21.0-32.0); CHLORIDE - SERUM 100 mmol/L (98-107); CREATININE - SERUM 0.8 mg/dL (0.6-1.3); GLUCOSE 130 mg/dL (74-106); SODIUM 134 mmol/L (136-145); UREA NITROGEN 12 mg/dL (7-18); eGFR NON AFRICAN AMERICAN > 90 mL/min (90-120)
[2018-07-20 05:37] LABS: POTASSIUM - SERUM 3.1 mmol/L (3.5-5.1)
--- NOTE | 2018-07-20 06:16 | NUR ---
VSS THROUGHOUT NIGHT. PACED RHYTHM PRE CM. PT INCONTINENT OF STOOL AT THIS TIME. INCONTINENT CARE DONE. AM POTASSIUM 3.1. KCL 40MEQ PO GIVEN WITH AM MEDS. NEEDS MET; WILL CONTINUE TO MONITOR.
--- NOTE | 2018-07-20 07:10 | NUR ---
ASSESSMENT PER FLOW SHEET. PT IS WITHOUT DISTRESS. FALL PREVENTION ON PLACE.DOOR OPEN TO MONITOR
[2018-07-20 08:08] VITALS: BP 99/63
[2018-07-20 11:57] VITALS: BP 94/61
[2018-07-20 15:44] VITALS: BP 99/59
--- NOTE | 2018-07-20 17:00 | NUR ---
STOOL SENT TO LAB EARLIER ORDERED. PT IS WITHOUT DISTRESS.
--- NOTE | 2018-07-20 17:02 | MORECARE ---
CASE MANAGEMENT DISCHARGE SUMMARY PATIENT: BLADIMIR RIVERA UNIT: [id number] ADM DATE: 07/17/18 AGE: 82 : 33 SEX: M ROOM/BED: D.2131 AUTHOR: KENYADOC PHYSICIAN: REFERRING PHYSICIAN: TEODORO BLOCK MD DATE OF SERVICE: 07/20/18 Discharge Plan Patient Name: BLADIMIR RIVERA Facility: [facility]:[place] : 1935 Planned Disposition: Home Anticipated Discharge Date: Discharge Date: Expected LOS: Initial Reviewer: [id number] Initial Review Date: 07/19/2018 Generated: 07/20/18 6:02 pm Comments DCP- Discharge Planning Updated by [id number]: Sav Rooney on 07/20/18 3:[address] Patient Name: BLADIMIR RIVERA Encounter No: [id number] : 1935 Primary Insurance: MEDICARE A & B Anticipated DC Date: Planned Disposition: Home DCP follow-up note: CM SPOKE TO DR. YUSUF WHO INFORMED CM THAT PT MAY BE INTERESTED IN GOING TO LONGTERM FACILITY. CM MET WITH PT IN ROOM, DISCUSSED LONGTERM, INPATIENT REHAB AND HOME HEALTH SERVICES. PT STATES THAT HE HAS BEEN THINKING OF LONGTERM AND NOW KNOWING IT WOULD NOT COST HIM TO GO TO REHAB, WILL TALK IT OVER WITH HIS SON, NAIF AND LET CM KNOW DECISION. PT BELIVES THAT HE MAY STILL GO HOME AND HIS GRANDSON WILL TAKE CARE OF HIM. PT STATES HE CAN EAT AND WALK SOME. CM EXPLAINED BENEFITS OF REHAB, PT AGAIN STATES HE WILL THINK ABOUT IT AND TALK TO HIS BOYS AND LET CM KNOW WHAT HIS DECISION IS. PT IS CONSIDERING [facility] FOR REHAB SERVICES. IMPORTANT MESSAGE FROM MEDICARE PROVIDED AND EXPLAINED. CM WAITING ON PT TO DISCUSS POSSIBLE LONGTERM REHAB WITH HIS SONS AND INFORM CM OF THEIR DECISION; PT STILL REPORTING PLAN TO GO HOME WITH [employer] CARING FOR HIM. CM TO FOLLOW AND ASSIST NEEDED. Sav Rooney, CASE MANAGEMENT DCP- Discharge Planning Updated by [id number]: Rachel Davenport on 07/19/18 1:[address] Patient Name: BLADIMIR RIVERA Admission Status: ER Accout number: [id number] Admission Date: 07-17-2018 : 1935 Admission Diagnosis: Attending: TEODORO BLOCK Current LOS: 2 Anticipated DC Date: Planned Disposition: Home Primary Insurance: MEDICARE A & B Discharge Planning Comments: CM met with patient about discharge planning. CM explained CM role and verbal consent was given to do dc assessment. CM educated on Home Health, DME and rehab services that are available. Patient states hIs discharge plan is to return to home alone with beronica Sherwood thatis helping take care of him.. States home environment is safe discharge. Denies any discharge planning needs at this time.. . States beronica Sherwood will drive him home upon discharge. CM will continue to follow and assist as needed with discharge planning needs. Proofsheet Corrector: Rachel Davenport DCP- Discharge Planning Updated by [id number]: Sav Rooney on 07/17/18 3:[address] Patient Name: BLADIMIR RIVERA Admission Status: ER Accout number: [id number] Admission Date: 07-17-2018 : 1935 Admission Diagnosis: Attending: TEODORO BLOCK Current LOS: 1 Anticipated DC Date: Planned Disposition: Primary Insurance: MEDICARE A & B Discharge Planning Comments: CM ATTEMPTED TO MEET WITH PT FOR INITIAL ASSESSMENT OF DISCHARGE NEEDS. PT SEEMS CONFUSED, REPEATS THAT HE IS TRYING TO PEE, CAN'T SEE AND HURTS BUT DOES NOT KNOW WHERE. BEDSIDE NURSE NOTIFIED. CM TO ATTEMPT ASSESSMENT OF PT AT A LATER TIME WHEN PT IS MORE STABLE AND ABLE TO PARTICIPATE IN ASSESSMENT. Proofsheet Corrector: Sav Rooney DCPIA - Discharge Planning Initial Assessment Updated by [id number]: Rachel Davenport on 07/19/18 2:46 pm * Is the patient Alert and Oriented? Yes * How many steps to enter\exit or inside your home? NA * PCP DELMER * Pharmacy [facility] [place] * Preadmission Environment Home with Family * ADLs Independent * List name and contact numbers for known caregivers / representatives who currently or will assist patient after discharge: BERONICA SHERWOOD [phone] * Verbal permission to speak to the caregivers and representatives has been obtained from the patient. Yes * Community resources currently utilized None * Additional services required to return to the preadmission environment? No * Can the patient safely return to the preadmission environment? Yes * Has this patient been hospitalized within the prior 30 days at any hospital? No Last DP export: 07/19/18 1:49 p Patient Name: BLADIMIR RIVERA Page 91465 at 1702 All edits/amendments must be made on the electronic document DICTATION DATE: 07/20/181700 PRINCIPAL AUTOMATION ENGINEER: DARREL 07/20/181700 RPT#: [id number] DC DATE: STATUS: ADM IN [facility] [address] [place] [address] END OF REPORT
--- NOTE | 2018-07-20 18:35 | NUR ---
REMAINS WITHOUT CHANGE FROM INITIAL SHIFT ASSESSMENT.CONT PLAN OF CARE
--- NOTE | 2018-07-20 19:26 | NUR ---
EVENING ROUNDS COMPLETED. REPORT RECEIVED. PT SITTING UP IN BED WITH EYES OPEN, RR EVEN AND UNLABORED. BED IN LOW POSITION. INTRODUCED SELF TO PT. PT DENIES FURTHER NEEDS AT THIS TIME. SIDE RAILS UP X2. 104 PACED ON TELEMETRY. NO S/S OF DISTRESS. CALL LIGHT IN REACH. WILL CTM.
[2018-07-20 21:25] VITALS: BP 101/55
[2018-07-21 01:56] VITALS: BP 99/61
--- NOTE | 2018-07-21 05:00 | NUR ---
I have reviewed this patient and I concur with the Shift Assessment completed by the Licensed Practical Nurse today this shift.
[2018-07-21 06:05] LABS: BASOPHILS 0.1 % (0-2); EOSINOPHILS 1.4 % (0-7); HEMATOCRIT 35.6 % (42.0-54.0); HEMOGLOBIN 11.9 g/dL (13.5-17.5); IMMATURE GRANULOCYTES 0.4 % (0-5); LYMPHOCYTES 22.7 % (15-50); MCHC 33.4 g/dL (31.0-37.0); MCV 92.7 fL (80.0-100.0); MEAN PLATELET VOLUME 9.6 fL (7.4-10.4); MONOCYTES 7.8 % (2-11); NEUTROPHILS 67.6 % (40-80); PLATELET COUNT 164 10x3/uL (130-400); RBC 3.84 10x6/uL (4.20-6.10); RDW 15.5 % (11.5-14.5); WBC 6.9 10x3/uL (4.8-10.8)
[2018-07-21 06:23] VITALS: BP 112/60
[2018-07-21 06:36] LABS: CALC OSMOLALITY 274 mosm/kg (275-300); CALCIUM 8.3 mg/dL (8.5-10.1); CARBON DIOXIDE 23.2 mmol/L (21.0-32.0); CHLORIDE - SERUM 101 mmol/L (98-107); CREATININE - SERUM 0.9 mg/dL (0.6-1.3); GLUCOSE 128 mg/dL (74-106); POTASSIUM - SERUM 3.3 mmol/L (3.5-5.1); SODIUM 136 mmol/L (136-145); UREA NITROGEN 15 mg/dL (7-18); eGFR NON AFRICAN AMERICAN 85 mL/min (90-120)
--- NOTE | 2018-07-21 07:22 | NUR ---
AM ROUNDS- PT RESTING COMFORTABLY IN BED, A/O X4, RESP EVEN AND NONLABORD ON RA. SCHRADER DRAINING YELLOW URINE TO GRAVITY. LT WRIST IV SL. PT DENIES ANY NEEDS AT THIS TIME. CALL LIGHT IN REACH, BEDSIDE RAILS X2, BED ALARM ON. NAD NOTED, WILL CONTINUE PLAN OF CARE.
[2018-07-21 07:44] VITALS: BP 104/57
--- NOTE | 2018-07-21 08:02 | NUR ---
AM MEDS GIVEN AT THIS TIME. PT IN BED, DENIES ANY NEEDS AT THIS TIME. CALL LIGHT IN REACH, NAD NOTED,W ILL CONTINUE TO MONITOR.
[2018-07-21 11:49] VITALS: BP 108/58
--- NOTE | 2018-07-21 13:19 | MORECARE ---
CASE MANAGEMENT DISCHARGE SUMMARY PATIENT: BLADIMIR RIVERA UNIT: [id number] ADM DATE: 07/17/18 AGE: 82 : 33 SEX: M ROOM/BED: D.2131 AUTHOR: KENYA,DOC PHYSICIAN: REFERRING PHYSICIAN: TEODORO BLOCK MD DATE OF SERVICE: 07/21/18 Discharge Plan Patient Name: BLADIMIR RIVERA Facility: [facility]:[place] : 1935 Planned Disposition: Inpatient Rehab Anticipated Discharge Date: 07/21/18 Discharge Date: Expected LOS: 4 Initial Reviewer: [id number] Initial Review Date: 07/19/2018 Generated: 07/21/18 2:19 pm Comments DCP- Discharge Planning Updated by [email or web address]: Sav Rooney on 07/20/18 3:[address] Patient Name: BLADIMIR RIVERA Encounter No: [id number] : 1935 Primary Insurance: MEDICARE A & B Anticipated DC Date: Planned Disposition: Home DCP follow-up note: CM SPOKE TO DR. YUSUF WHO INFORMED CM THAT PT MAY BE INTERESTED IN GOING TO CORRECTION FACILITY. CM MET WITH PT IN ROOM, DISCUSSED CORRECTION, INPATIENT REHAB AND HOME HEALTH SERVICES. PT STATES THAT HE HAS BEEN THINKING OF CORRECTION AND NOW KNOWING IT WOULD NOT COST HIM TO GO TO REHAB, WILL TALK IT OVER WITH HIS SON, NAIF AND LET CM KNOW DECISION. PT BELIVES THAT HE MAY STILL GO HOME AND HIS GRANDSON WILL TAKE CARE OF HIM. PT STATES HE CAN EAT AND WALK SOME. CM EXPLAINED BENEFITS OF REHAB, PT AGAIN STATES HE WILL THINK ABOUT IT AND TALK TO HIS BOYS AND LET CM KNOW WHAT HIS DECISION IS. PT IS CONSIDERING [facility] FOR REHAB SERVICES. IMPORTANT MESSAGE FROM MEDICARE PROVIDED AND EXPLAINED. CM WAITING ON PT TO DISCUSS POSSIBLE CORRECTION REHAB WITH HIS SONS AND INFORM CM OF THEIR DECISION; PT STILL REPORTING PLAN TO GO HOME WITH [employer] CARING FOR HIM. CM TO FOLLOW AND ASSIST NEEDED. Sav Rooney, CASE MANAGEMENT DCP- Discharge Planning Updated by [id number]: Rachel Davenport on 07/19/18 1:[address] Patient Name: BLADIMIR RIVERA Admission Status: ER Accout number: [id number] Admission Date: 07-17-2018 : 1935 Admission Diagnosis: Attending: TEODORO BLOCK Current LOS: 2 Anticipated DC Date: Planned Disposition: Home Primary Insurance: MEDICARE A & B Discharge Planning Comments: CM met with patient about discharge planning. CM explained CM role and verbal consent was given to do dc assessment. CM educated on Home Health, DME and rehab services that are available. Patient states hIs discharge plan is to return to home alone with beronica Sherwood thatis helping take care of him.. States home environment is safe discharge. Denies any discharge planning needs at this time.. . States beronica Sherwood will drive him home upon discharge. CM will continue to follow and assist as needed with discharge planning needs. Colorer: Rachel Davenport DCP- Discharge Planning Updated by [id number]: Sav Rooney on 07/17/18 3:[address] Patient Name: BLADIMIR RIVERA Admission Status: ER Accout number: [id number] Admission Date: 07-17-2018 : 1935 Admission Diagnosis: Attending: TEODORO BLOCK Current LOS: 1 Anticipated DC Date: Planned Disposition: Primary Insurance: MEDICARE A & B Discharge Planning Comments: CM ATTEMPTED TO MEET WITH PT FOR INITIAL ASSESSMENT OF DISCHARGE NEEDS. PT SEEMS CONFUSED, REPEATS THAT HE IS TRYING TO PEE, CAN'T SEE AND HURTS BUT DOES NOT KNOW WHERE. BEDSIDE NURSE NOTIFIED. CM TO ATTEMPT ASSESSMENT OF PT AT A LATER TIME WHEN PT IS MORE STABLE AND ABLE TO PARTICIPATE IN ASSESSMENT. Colorer: Sav Rooney DCPIA - Discharge Planning Initial Assessment Updated by [id number]: Rachel Davenport on 07/19/18 2:46 pm * Is the patient Alert and Oriented? Yes * How many steps to enter\exit or inside your home? NA * PCP [facility] * Pharmacy [facility] [place] * Preadmission Environment Home with Family * ADLs Independent * List name and contact numbers for known caregivers / representatives who currently or will assist patient after discharge: BERONICA SHERWOOD [phone] * Verbal permission to speak to the caregivers and representatives has been obtained from the patient. Yes * Community resources currently utilized None * Additional services required to return to the preadmission environment? No * Can the patient safely return to the preadmission environment? Yes * Has this patient been hospitalized within the prior 30 days at any hospital? No Coverage Notice Reviewer: [id number] - Sav Rooney Notice Issued Date-Time: 07/21/2018 13:10 Notice Type: IM Discharge Notice Notice Delivered To: Patient Relationship to Patient: Productivity Engineer Name: Delivery Method: HAND - Hand Delivered Ivonne Days: Prior Verbal Notification: Recipient Understood Notice: Yes Recipient Signature: Yes Med Rec Note Co-signed by Attending: Coverage Notice Comment: Last DP export: 07/20/18 4:02 p Patient Name: BLADIMIR RIVERA Page 20673 at 1319 All edits/amendments must be made on the electronic document DICTATION DATE: 07/21/188 RETAIL ASSOCIATE: DARREL 07/21/18 1318 RPT#: [id number] DC DATE: STATUS: ADM IN [facility] [address] [place] [address] END OF REPORT
--- NOTE | 2018-07-21 13:26 | MORECARE ---
CASE MANAGEMENT DISCHARGE SUMMARY PATIENT: BLADIMIR RIVERA UNIT: [id number] ADM DATE: 07/17/18 AGE: 82 : 33 SEX: M ROOM/BED: D.2131 AUTHOR: JORGE ZAMBRANO PHYSICIAN: REFERRING PHYSICIAN: TEODORO BLOCK MD DATE OF SERVICE: 07/21/18 Discharge Plan Patient Name: BLADIMIR RIVERA Facility: [facility]:[place] : 1935 Planned Disposition: Inpatient Rehab Anticipated Discharge Date: 07/21/18 Discharge Date: Expected LOS: 4 Initial Reviewer: [email or web address] Initial Review Date: 07/19/2018 Generated: 07/21/18 2:26 pm Comments DCP- Discharge Planning Updated by [email or web address]: Sav Rooney on 07/21/18 12:[address] Patient Name: BLADIMIR RIVERA Encounter No: [id number] : 1935 Primary Insurance: MEDICARE A & B Anticipated DC Date: 07-21-2018 Planned Disposition: Inpatient Rehab External Planned Provider: [facility] INPATIENT REHAB DCP follow-up note: CM RECEIVED REHAB PRESCREENING ORDER, MET WITH PT IN ROOM TO DISCUSS REHAB OPTIONS. CM DISCUSSED REHAB PROVIDERS, LOCATIONS AND SERVICES. PT STATES HE SPOKE TO HIS SONS AND THEY HAVE SAID THAT WHATEVER PT DECIDES IS FINE. PT ASKED FOR REHAB AT [facility], HE HAS BEEN THERE IN THE PAST AND THEY DID HIM SOME GOOD. IMPORTANT MESSAGE FROM MEDICARE PROVIDED AND EXPLAINED. CM SPOKE TO SHEELA WISE WHO INFORMED CM THAT PT IS READY TO DISCHARGE TO REHAB TODAY. CM LEFT MESSAGE FOR [facility] OF INPATIENT REHAB. CM WAITING ADMISSION DETERMINATION FROM [facility] INPATIENT REHAB. Sav Rooney, CASE MANAGEMENT DCP- Discharge Planning Updated by [id number]: Sav Rooney on 07/20/18 3:[address] Patient Name: BLADIMIR RIVERA Encounter No: [id number] : 1935 Primary Insurance: MEDICARE A & B Anticipated DC Date: Planned Disposition: Home DCP follow-up note: CM SPOKE TO DR. YUSUF WHO INFORMED CM THAT PT MAY BE INTERESTED IN GOING TO LONG TERM FACILITY. CM MET WITH PT IN ROOM, DISCUSSED LONG TERM, INPATIENT REHAB AND HOME HEALTH SERVICES. PT STATES THAT HE HAS BEEN THINKING OF LONG TERM AND NOW KNOWING IT WOULD NOT COST HIM TO GO TO REHAB, WILL TALK IT OVER WITH HIS SON, NAIF AND LET CM KNOW DECISION. PT BELIVES THAT HE MAY STILL GO HOME AND HIS GRANDSON WILL TAKE CARE OF HIM. PT STATES HE CAN EAT AND WALK SOME. CM EXPLAINED BENEFITS OF REHAB, PT AGAIN STATES HE WILL THINK ABOUT IT AND TALK TO HIS BOYS AND LET CM KNOW WHAT HIS DECISION IS. PT IS CONSIDERING [facility] FOR REHAB SERVICES. IMPORTANT MESSAGE FROM MEDICARE PROVIDED AND EXPLAINED. CM WAITING ON PT TO DISCUSS POSSIBLE LONG TERM REHAB WITH HIS SONS AND INFORM CM OF THEIR DECISION; PT STILL REPORTING PLAN TO GO HOME WITH [employer]OR CARING FOR HIM. CM TO FOLLOW AND ASSIST NEEDED. Sav Rooney, CASE MANAGEMENT DCP- Discharge Planning Updated by [id number]: Rachel Davenport on 07/19/18 1:[address] Patient Name: BLADIMIR RIVERA Admission Status: ER Accout number: [id number] Admission Date: 07-17-2018 : 1935 Admission Diagnosis: Attending: TEODORO BLOCK Current LOS: 2 Anticipated DC Date: Planned Disposition: Home Primary Insurance: MEDICARE A & B Discharge Planning Comments: CM met with patient about discharge planning. CM explained CM role and verbal consent was given to do dc assessment. CM educated on Home Health, DME and rehab services that are available. Patient states hIs discharge plan is to return to home alone with beronica Sherwood thatis helping take care of him.. States home environment is safe discharge. Denies any discharge planning needs at this time.. . States beronica Sherwood will drive him home upon discharge. CM will continue to follow and assist as needed with discharge planning needs. Quality Assurance/R&D Lab Technician: Rachel Davenport DCP- Discharge Planning Updated by [id number]: Sav Rooney on 07/17/18 3:[address] Patient Name: BLADIMIR RIVERA Admission Status: ER Accout number: [id number] Admission Date: 07-17-2018 : 1935 Admission Diagnosis: Attending: TEODORO BLOCK Current LOS: 1 Anticipated DC Date: Planned Disposition: Primary Insurance: MEDICARE A & B Discharge Planning Comments: CM ATTEMPTED TO MEET WITH PT FOR INITIAL ASSESSMENT OF DISCHARGE NEEDS. PT SEEMS CONFUSED, REPEATS THAT HE IS TRYING TO PEE, CAN'T SEE AND HURTS BUT DOES NOT KNOW WHERE. BEDSIDE NURSE NOTIFIED. CM TO ATTEMPT ASSESSMENT OF PT AT A LATER TIME WHEN PT IS MORE STABLE AND ABLE TO PARTICIPATE IN ASSESSMENT. Quality Assurance/R&D Lab Technician: Sav Rooney DCPIA - Discharge Planning Initial Assessment Updated by [email or web address]: aRchel Davenport on 07/19/18 2:46 pm * Is the patient Alert and Oriented? Yes * How many steps to enter\exit or inside your home? NA * PCP DELMER * Pharmacy [facility] [place] * Preadmission Environment Home with Family * ADLs Independent * List name and contact numbers for known caregivers / representatives who currently or will assist patient after discharge: BERONICA SHERWOOD [phone] * Verbal permission to speak to the caregivers and representatives has been obtained from the patient. Yes * Community resources currently utilized None * Additional services required to return to the preadmission environment? No * Can the patient safely return to the preadmission environment? Yes * Has this patient been hospitalized within the prior 30 days at any hospital? No Coverage Notice Reviewer: [id number] - Sav Rooney Notice Issued Date-Time: 07/21/2018 13:10 Notice Type: IM Discharge Notice Notice Delivered To: Patient Relationship to Patient: Afterschool Name: Delivery Method: HAND - Hand Delivered Ivonne Days: Prior Verbal Notification: Recipient Understood Notice: Yes Recipient Signature: Yes Med Rec Note Co-signed by Attending: Coverage Notice Comment: Last DP export: 07/21/18 12:19 p Patient Name: BLADIMIR RIVERA Page 13764 at 1326 All edits/amendments must be made on the electronic document DICTATION DATE: 07/21/18 1325 FILTER WORKER: DARREL 07/21/18 1325 RPT#: [id number] DC DATE: STATUS: ADM IN [facility] [address] [place] [address] END OF REPORT
[2018-07-21] MEDS ORDERED: FLOMAX0.4 MG PO (13:47)
--- NOTE | 2018-07-21 14:17 | MORECARE ---
CASE MANAGEMENT DISCHARGE SUMMARY PATIENT: BLADIMIR RIVERA UNIT: [id number] ADM DATE: 07/17/18 AGE: 82 : 33 SEX: M ROOM/BED: D.2131 AUTHOR: KENYADOC PHYSICIAN: REFERRING PHYSICIAN: TEODORO BLOCK MD DATE OF SERVICE: 07/21/18 Discharge Plan Patient Name: BLADIMIR RIVERA Facility: [facility]:[place] : 1935 Planned Disposition: Inpatient Rehab Anticipated Discharge Date: 07/21/18 Discharge Date: Expected LOS: 4 Initial Reviewer: [id number] Initial Review Date: 07/19/2018 Generated: 07/21/18 3:17 pm Comments DCP- Discharge Planning Updated by [email or web address]: Sav Rooney on 07/21/18 1:[address] Patient Name: BLADIMIR RIVERA Encounter No: [id number] : 1935 Primary Insurance: MEDICARE A & B Anticipated DC Date: 07-21-2018 Planned Disposition: Inpatient Rehab External Planned Provider: [facility] INPATIENT REHAB DCP follow-up note: CM RECEIVED REHAB PRESCREENING ORDER, MET WITH PT IN ROOM TO DISCUSS REHAB OPTIONS. CM DISCUSSED REHAB PROVIDERS, LOCATIONS AND SERVICES. PT STATES HE SPOKE TO HIS SONS AND THEY HAVE SAID THAT WHATEVER PT DECIDES IS FINE. PT ASKED FOR REHAB AT [facility], HE HAS BEEN THERE IN THE PAST AND THEY DID HIM SOME GOOD. IMPORTANT MESSAGE FROM MEDICARE PROVIDED AND EXPLAINED. CM SPOKE TO SHEELA WISE WHO INFORMED CM THAT PT IS READY TO DISCHARGE TO REHAB TODAY. CM LEFT MESSAGE FOR [facility] OF INPATIENT REHAB. CM WAITING ADMISSION DETERMINATION FROM [facility] INPATIENT REHAB. Sav Rooney, CASE MANAGEMENT Appended by Sav Rooney on 07/21/2018 14:15 CDT: CM RECEIVED MESSAGE FROM [facility] OF INPATIENT REHAB, THEY PLAN TO ACCEPT PT TODAY FOR REHAB. PT NOTIFIED, IN AGREEMENT WITH DISCHARGE TO INPATIENT REHAB. DISCHARGE ORDER RECEIVED. [facility] INPATIENT REHAB TO CONTACT MED 2 NURSE WITH ROOM NUMBER WHEN READY TO ACCEPT PT AND NURSE REPORT. MAKAYLA STARR DCP- Discharge Planning Updated by [email or web address]: Sav Rooney on 07/20/18 3:[address] Patient Name: BLADIMIR RIVERA Encounter No: [id number] : 1935 Primary Insurance: MEDICARE A & B Anticipated DC Date: Planned Disposition: Home DCP follow-up note: CM SPOKE TO DR. YUSUF WHO INFORMED CM THAT PT MAY BE INTERESTED IN GOING TO PENITENTIARY FACILITY. CM MET WITH PT IN ROOM, DISCUSSED PENITENTIARY, INPATIENT REHAB AND HOME HEALTH SERVICES. PT STATES THAT HE HAS BEEN THINKING OF PENITENTIARY AND NOW KNOWING IT WOULD NOT COST HIM TO GO TO REHAB, WILL TALK IT OVER WITH HIS SONNAIF AND LET CM KNOW DECISION. PT BELIVES THAT HE MAY STILL GO HOME AND HIS GRANDSON WILL TAKE CARE OF HIM. PT STATES HE CAN EAT AND WALK SOME. CM EXPLAINED BENEFITS OF REHAB, PT AGAIN STATES HE WILL THINK ABOUT IT AND TALK TO HIS BOYS AND LET CM KNOW WHAT HIS DECISION IS. PT IS CONSIDERING [facility] FOR REHAB SERVICES. IMPORTANT MESSAGE FROM MEDICARE PROVIDED AND EXPLAINED. CM WAITING ON PT TO DISCUSS POSSIBLE PENITENTIARY REHAB WITH HIS SONS AND INFORM CM OF THEIR DECISION; PT STILL REPORTING PLAN TO GO HOME WITH [employer]OR CARING FOR HIM. CM TO FOLLOW AND ASSIST NEEDED. Sav Rooney, CASE MANAGEMENT DCP- Discharge Planning Updated by [id number]: Rachel Davenport on 07/19/18 1:[address] Patient Name: BLADIMIR RIVERA Admission Status: ER Accout number: [id number] Admission Date: 07-17-2018 : 1935 Admission Diagnosis: Attending: TEODORO BLOCK Current LOS: 2 Anticipated DC Date: Planned Disposition: Home Primary Insurance: MEDICARE A & B Discharge Planning Comments: CM met with patient about discharge planning. CM explained CM role and verbal consent was given to do dc assessment. CM educated on Home Health, DME and rehab services that are available. Patient states hIs discharge plan is to return to home alone with beronica Sherwood thatis helping take care of him.. States home environment is safe discharge. Denies any discharge planning needs at this time.. . States beronica Sherwood will drive him home upon discharge. CM will continue to follow and assist as needed with discharge planning needs. Systems Project Manager: Rachel Davenport DCP- Discharge Planning Updated by [id number]: Sav Rooney on 07/17/18 3:[address] Patient Name: BLADIMIR RIVERA Admission Status: ER Accout number: [id number] Admission Date: 07-17-2018 : 1935 Admission Diagnosis: Attending: TEODORO BLOCK Current LOS: 1 Anticipated DC Date: Planned Disposition: Primary Insurance: MEDICARE A & B Discharge Planning Comments: CM ATTEMPTED TO MEET WITH PT FOR INITIAL ASSESSMENT OF DISCHARGE NEEDS. PT SEEMS CONFUSED, REPEATS THAT HE IS TRYING TO PEE, CAN'T SEE AND HURTS BUT DOES NOT KNOW WHERE. BEDSIDE NURSE NOTIFIED. CM TO ATTEMPT ASSESSMENT OF PT AT A LATER TIME WHEN PT IS MORE STABLE AND ABLE TO PARTICIPATE IN ASSESSMENT. Systems Project Manager: Sav Rooney DCPIA - Discharge Planning Initial Assessment Updated by [email or web address]: Rachel Davenport on 07/19/18 2:46 pm * Is the patient Alert and Oriented? Yes * How many steps to enter\exit or inside your home? NA * PCP [facility] * Pharmacy [facility] [place] * Preadmission Environment Home with Family * ADLs Independent * List name and contact numbers for known caregivers / representatives who currently or will assist patient after discharge: BERONICA SHERWOOD [phone] * Verbal permission to speak to the caregivers and representatives has been obtained from the patient. Yes * Community resources currently utilized None * Additional services required to return to the preadmission environment? No * Can the patient safely return to the preadmission environment? Yes * Has this patient been hospitalized within the prior 30 days at any hospital? No Coverage Notice Reviewer: [id number] - Sav Rooney Notice Issued Date-Time: 07/21/2018 13:10 Notice Type: IM Discharge Notice Notice Delivered To: Patient Relationship to Patient: Loader Unloader Name: Delivery Method: HAND - Hand Delivered Ivonne Days: Prior Verbal Notification: Recipient Understood Notice: Yes Recipient Signature: Yes Med Rec Note Co-signed by Attending: Coverage Notice Comment: Last DP export: 07/21/18 12:26 p Patient Name: BLADIMIR RIVERA Page 51475 at 1417 All edits/amendments must be made on the electronic document DICTATION DATE: 07/21/181415 ELECTRONIC PREPRESS OPERATOR: DARREL 07/21/18 1416 RPT#: [id number] DC DATE: STATUS: ADM IN [facility] [address] [place] [address] END OF REPORT
--- NOTE | 2018-07-21 14:19 | NUR ---
REHAB PRESCREENING Rehab referral received and chart reviewed. Mr. Julien is well known to this rehab unit. I will begin his paper screen. We will notify case management when all approvals are in place. He will then be accepted to rehab when his physician feels he is appropriate for discharge. Thank you for this referral! Mishel Farley, METAL TANK ERECTOR Rehab PD
--- NOTE | 2018-07-21 14:27 | MORECARE ---
CASE MANAGEMENT DISCHARGE SUMMARY PATIENT: BLADIMIR RIVERA UNIT: [id number] ADM DATE: 07/17/18 AGE: 82 : 33 SEX: M ROOM/BED: D.2131 AUTHOR: KENYADOC PHYSICIAN: REFERRING PHYSICIAN: TEODORO BLOCK MD DATE OF SERVICE: 07/21/18 Discharge Plan Patient Name: BLADIMIR RIVERA Facility: [facility]:[place] : 1935 Planned Disposition: Inpatient Rehab Anticipated Discharge Date: 07/21/18 Discharge Date: Expected LOS: 4 Initial Reviewer: [email or web address] Initial Review Date: 07/19/2018 Generated: 07/21/18 3:27 pm Comments DCP- Discharge Planning Updated by [email or web address]: Sav Rooney on 07/21/18 1:[address] Patient Name: BLADIMIR RIVERA Encounter No: [id number] : 1935 Primary Insurance: MEDICARE A & B Anticipated DC Date: 07-21-2018 Planned Disposition: Inpatient Rehab External Planned Provider: [facility] DCP follow-up note: CM RECEIVED REHAB PRESCREENING ORDER, MET WITH PT IN ROOM TO DISCUSS REHAB OPTIONS. CM DISCUSSED REHAB PROVIDERS, LOCATIONS AND SERVICES. PT STATES HE SPOKE TO HIS SONS AND THEY HAVE SAID THAT WHATEVER PT DECIDES IS FINE. PT ASKED FOR REHAB AT [facility], HE HAS BEEN THERE IN THE PAST AND THEY DID HIM SOME GOOD. IMPORTANT MESSAGE FROM MEDICARE PROVIDED AND EXPLAINED. CM SPOKE TO SHEELA WISE WHO INFORMED CM THAT PT IS READY TO DISCHARGE TO REHAB TODAY. CM LEFT MESSAGE FOR [facility] OF INPATIENT REHAB. CM WAITING ADMISSION DETERMINATION FROM [facility]. Sav Rooney, CASE MANAGEMENT Appended by Sav Rooney on 07/21/2018 14:15 CDT: CM RECEIVED MESSAGE FROM [facility] OF INPATIENT REHAB, THEY PLAN TO ACCEPT PT TODAY FOR REHAB. PT NOTIFIED, IN AGREEMENT WITH DISCHARGE TO INPATIENT REHAB. DISCHARGE ORDER RECEIVED. [facility] TO CONTACT MED 2 NURSE WITH ROOM NUMBER WHEN READY TO ACCEPT PT AND NURSE REPORT. MAKAYLA STARR DCP- Discharge Planning Updated by [email or web address]: Sav Rooney on 07/20/18 3:[address] Patient Name: BLADIMIR RIVERA Encounter No: [id number] : 1935 Primary Insurance: MEDICARE A & B Anticipated DC Date: Planned Disposition: Home DCP follow-up note: CM SPOKE TO DR. YUSUF WHO INFORMED CM THAT PT MAY BE INTERESTED IN GOING TO CUSTODIAL FACILITY. CM MET WITH PT IN ROOM, DISCUSSED CUSTODIAL, INPATIENT REHAB AND HOME HEALTH SERVICES. PT STATES THAT HE HAS BEEN THINKING OF CUSTODIAL AND NOW KNOWING IT WOULD NOT COST HIM TO GO TO REHAB, WILL TALK IT OVER WITH HIS SONNAIF AND LET CM KNOW DECISION. PT BELIVES THAT HE MAY STILL GO HOME AND HIS GRANDSON WILL TAKE CARE OF HIM. PT STATES HE CAN EAT AND WALK SOME. CM EXPLAINED BENEFITS OF REHAB, PT AGAIN STATES HE WILL THINK ABOUT IT AND TALK TO HIS BOYS AND LET CM KNOW WHAT HIS DECISION IS. PT IS CONSIDERING [facility] FOR REHAB SERVICES. IMPORTANT MESSAGE FROM MEDICARE PROVIDED AND EXPLAINED. CM WAITING ON PT TO DISCUSS POSSIBLE CUSTODIAL REHAB WITH HIS SONS AND INFORM CM OF THEIR DECISION; PT STILL REPORTING PLAN TO GO HOME WITH [facility] FOR HIM. CM TO FOLLOW AND ASSIST NEEDED. Sav Rooney, CASE MANAGEMENT DCP- Discharge Planning Updated by [id number]: Rachel Davenport on 07/19/18 1:[address] Patient Name: BLADIMIR RIVERA Admission Status: ER Accout number: [id number] Admission Date: 07-17-2018 : 1935 Admission Diagnosis: Attending: TEODORO BLOCK Current LOS: 2 Anticipated DC Date: Planned Disposition: Home Primary Insurance: MEDICARE A & B Discharge Planning Comments: CM met with patient about discharge planning. CM explained CM role and verbal consent was given to do dc assessment. CM educated on Home Health, DME and rehab services that are available. Patient states hIs discharge plan is to return to home alone with beronica Sherwood thatis helping take care of him.. States home environment is safe discharge. Denies any discharge planning needs at this time.. . States beronica Sherwood will drive him home upon discharge. CM will continue to follow and assist as needed with discharge planning needs. Histology Supervisor: Rachel Davenport DCP- Discharge Planning Updated by [email or web address]: Sav Rooney on 07/17/18 3:[address] Patient Name: BLADIMIR RIVERA Admission Status: ER Accout number: [id number] Admission Date: 07-17-2018 : 1935 Admission Diagnosis: Attending: TEODORO BLOCK Current LOS: 1 Anticipated DC Date: Planned Disposition: Primary Insurance: MEDICARE A & B Discharge Planning Comments: CM ATTEMPTED TO MEET WITH PT FOR INITIAL ASSESSMENT OF DISCHARGE NEEDS. PT SEEMS CONFUSED, REPEATS THAT HE IS TRYING TO PEE, CAN'T SEE AND HURTS BUT DOES NOT KNOW WHERE. BEDSIDE NURSE NOTIFIED. CM TO ATTEMPT ASSESSMENT OF PT AT A LATER TIME WHEN PT IS MORE STABLE AND ABLE TO PARTICIPATE IN ASSESSMENT. Histology Supervisor: Sav Rooney DCPIA - Discharge Planning Initial Assessment Updated by [email or web address]: Rachel Davenport on 07/19/18 2:46 pm * Is the patient Alert and Oriented? Yes * How many steps to enter\exit or inside your home? NA * PCP [place] * Pharmacy [facility] [place] * Preadmission Environment Home with Family * ADLs Independent * List name and contact numbers for known caregivers / representatives who currently or will assist patient after discharge: BERONICA SHERWOOD [phone] * Verbal permission to speak to the caregivers and representatives has been obtained from the patient. Yes * Community resources currently utilized None * Additional services required to return to the preadmission environment? No * Can the patient safely return to the preadmission environment? Yes * Has this patient been hospitalized within the prior 30 days at any hospital? No Coverage Notice Reviewer: [id number] - Sav Rooney Notice Issued Date-Time: 07/21/2018 13:10 Notice Type: IM Discharge Notice Notice Delivered To: Patient Relationship to Patient: Grinder Name: Delivery Method: HAND - Hand Delivered Ivonne Days: Prior Verbal Notification: Recipient Understood Notice: Yes Recipient Signature: Yes Med Rec Note Co-signed by Attending: Coverage Notice Comment: Last DP export: 07/21/18 1:17 p Patient Name: BLADIMIR RIVERA Page [id number] at 1427 All edits/amendments must be made on the electronic document DICTATION DATE: 07/21/181425 CERTIFIED MEDICAL TECHNICIAN: DARREL 07/21/18 142 RPT#: [id number] DC DATE: STATUS: ADM IN [facility] [address] [place] [address] END OF REPORT
[2018-07-21 14:57] VITALS: BP 117/67
--- NOTE | 2018-07-21 16:47 | NUR ---
REPORT CALLED TO DEXTER GEORGE IN REHAB. PROVIDED VERBAL AND WRITTEN DISHARGE TEACHING TO PT, WHO VERBALIZED UNDERSTANDING REGARING TEACHING. LT WRIST IV D/C WITH CATHETER TIP INTACT. COMMUNITY PROGRAM ASSISTANT TO TAKE PT DOWN TO REHAB.
--- NOTE | 2018-07-21 16:58 | NUR ---
PT TRANSFERED TO REHAB, VIA WHEELCHAIR WITH ALL BELONGINGS, NAD NOTED.
== END 2018-07-21 17:00 | DRG 70 ==
LOC: D.ER 04:14 → D.EDHOLD 11:33 → D.M2 11:33
PROVIDERS: Emergency Medicine; Family Medicine; ADMIT Internal Medicine Nephrology; ATTEND Internal Medicine Nephrology
DX: G93.41 Metabolic encephalopathy (principal); I50.23 Acute on chronic systolic (congestive) heart failure; E72.20 Disorder of urea cycle metabolism, unspecified; N17.9 Acute kidney failure, unspecified; I11.0 Hypertensive heart disease with heart failure; D50.9 Iron deficiency anemia, unspecified; E83.42 Hypomagnesemia; F03.90 Unspecified dementia, unspecified severity, without behavioral disturbance, psychotic disturbance, mood disturbance, and anxiety; E78.5 Hyperlipidemia, unspecified; E53.8 Deficiency of other specified B group vitamins; R33.9 Retention of urine, unspecified; Z86.73 Personal history of transient ischemic attack (TIA), and cerebral infarction without residual deficits; E11.65 Type 2 diabetes mellitus with hyperglycemia

== ENCOUNTER 2018-07-21 16:49 | Inpatient (IN) | payer MEDICARE ==
[~2018-07-21] VITALS: Ht 167.6 cm; Wt 63.5 kg
[~2018-07-21 16:49] MED LIST changes: +FLOMAX0.4 MG PO
[2018-07-21 19:00] VITALS: BP 121/55
[2018-07-22] VITALS: BP 121/55; BMI 22.6
[2018-07-22 01:14] LABS: COLOR YELLOW (YELLOW)
[2018-07-22 01:15] LABS: APPEARANCE CLOUDY (CLEAR); BILIRUBIN NEGATIVE (NEGATIVE); GLUCOSE NEGATIVE (NEGATIVE); KETONE NEGATIVE (NEGATIVE); NITRITE NEGATIVE (NEGATIVE); PROTEIN 2+ mg/dL (NEGATIVE); UROBILINOGEN NORMAL (NORMAL)
[2018-07-22 01:21] LABS: RED CELLS - URINE 25-50 /hpf (0-5); WHITE CELLS - URINE 25-50 /hpf (0-5)
[2018-07-22 01:22] LABS: AMORPHOUS SEDIMENT <1+ /lpf (NONE SEEN); BACTERIA MANY /hpf (NONE SEEN); EPITHELIAL CELLS 0-5 /hpf (0-5); MUCUS >1+ /lpf (NONE SEEN)
[2018-07-22 08:00] VITALS: BP 110/56
[2018-07-22 08:46] LABS: BASOPHILS 0.2 % (0-2); EOSINOPHILS 2.2 % (0-7); HEMATOCRIT 34.5 % (42.0-54.0); HEMOGLOBIN 11.6 g/dL (13.5-17.5); IMMATURE GRANULOCYTES 0.3 % (0-5); LYMPHOCYTES 21.3 % (15-50); MCH 31.1 pg (26.0-34.0); MCHC 33.6 g/dL (31.0-37.0); MCV 92.5 fL (80.0-100.0); MEAN PLATELET VOLUME 9.5 fL (7.4-10.4); MONOCYTES 8.5 % (2-11); NEUTROPHILS 67.5 % (40-80); PLATELET COUNT 183 10x3/uL (130-400); RBC 3.73 10x6/uL (4.20-6.10); RDW 15.4 % (11.5-14.5); WBC 6.5 10x3/uL (4.8-10.8)
[2018-07-22 09:00] LABS: CALC OSMOLALITY 268 mosm/kg (275-300); CALCIUM 8.5 mg/dL (8.5-10.1); CARBON DIOXIDE 22.2 mmol/L (21.0-32.0); CHLORIDE - SERUM 102 mmol/L (98-107); CREATININE - SERUM 0.9 mg/dL (0.6-1.3); GLUCOSE 143 mg/dL (74-106); POTASSIUM - SERUM 3.7 mmol/L (3.5-5.1); SODIUM 133 mmol/L (136-145); UREA NITROGEN 15 mg/dL (7-18); eGFR NON AFRICAN AMERICAN 85 mL/min (90-120)
--- NOTE | 2018-07-22 14:03 | RHP ---
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 He is an 82-year-old gentleman with a history of hypertension, hyperlipidemia, CVA, dementia, and diabetes. He is well known to our unit. He has had success. We discharged him from here in the past. He presented to the ED with family complaining of the patient having confusion. His family reports he had been normal the night prior to this. He had not had any recent complaints of nausea, vomiting, diarrhea, or any other complaints. He was evaluated. Upon admission, his ammonia level was 126, his BUN was 26. Chest x-ray showed no acute findings. CT of his head was normal. He was admitted for evaluation and treatment. At this time, barriers to discharge include self-care deficits, telemetry, wound care management, electrolyte replacement protocol. He is having some problems with bowel and bladder training at this time. Prior to his illness, when he was discharged to home, he was ambulating 500 feet with a rolling walker. Currently, he is max assist for ambulation using a rolling walker 30 feet. He is min-to-mod assist with ADLs. He is severely deconditioned and required intensive therapy of PT, OT, and speech therapy in order to return back to his prior level of functioning and hopefully return home. He has got a grandson that usually takes care of him. Comorbidities in this patient include acute hepatic encephalopathy, elevated ammonia, microcytic anemia, electrolyte abnormalities, deconditioning, dementia, diabetes, gout, B12 deficiency, urinary retention. PAST MEDICAL HISTORY: Significant for CVA and TIA, diabetes, hypertension, CHF, LA in the past, angina, asthma, skin cancer, GI bleed in the past, arthritis, osteoporosis, dementia. PAST SURGICAL HISTORY: Includes cataract surgery. ALLERGIES: MORPHINE. CURRENT MEDICATIONS: Include Tylenol 650 every 4 hours p.r.n., potassium 10 mEq daily, Protonix 40 mg daily, metformin 500 mg b.i.d. with meals, furosemide 20 mg daily, Cordarone 200 mg daily, Zyloprim 300 mg daily, Flomax 0.4 mg at bedtime, Pravachol 40 mg at bedtime, Nitrostat p.r.n. chest pain, and Aricept 5 mg at bedtime. HABITS: No alcohol or tobacco use. FAMILY HISTORY: Noncontributory. SOCIAL HISTORY: The patient hopes to return back home and get back to his prior HISTORY AND PHYSICAL [id number] BLADIMIR RIVERA level of functioning. REVIEW OF SYSTEMS: GENERAL: Does complain of weakness and fatigue. HEENT: Denies cold, cough, or congestion. CARDIOVASCULAR: Denies chest pain. PHYSICAL EXAMINATION: VITAL SIGNS: Stable, afebrile. GENERAL: A thin gentleman, in no acute distress upon exam. HEENT: Normocephalic and atraumatic. Mucosa moist. NECK: Supple. No lymphadenopathy. LUNGS: Clear at this time with no wheeze or rales. HEART: Regular rate and rhythm. No murmurs, rubs or gallops. ABDOMEN: Benign. EXTREMITIES: No clubbing, cyanosis or edema. NEUROLOGIC: He does have noted weakness. He also has some noted deficiencies in his memory. LABORATORY DATA: Admit UA did show 2+ blood, 2+ leukocyte esterase, and 25-50 red blood cells. His blood work is pending at this time. ASSESSMENT: This is an 82-year-old gentleman admitted to the rehab with a working diagnosis of metabolic encephalopathy. The patient has potential to make improvement. We will institute the following multidisciplinary therapies including, but not limited to, physical, occupational, respiratory, speech, nutritional services, prosthetics, and orthotics. Given his complex medical condition and risk for more complications, rehabilitation services cannot be provided at a lower level of care such as a skilled nurse facility. PLAN: 1. Admit to [facility] for inpatient therapy to include the following disciplines; A. Physical therapy to improve gait, all transfer skills, and bed mobility to modified independent level. B. Occupational therapy to modified independent level. C. Case management to assist with discharge planning and placement options. D. Nutrition to assist with nutritional needs. E. Rehabilitation nursing to assist in monitoring the patient's underlying medical conditions and to assist with any type of bowel or bladder management. 2. The patient's current medications and medical care will be continued. 3. The patient will be placed on standard fall precautions. 4. The patient's estimated length of stay is approximately 7-10 days. 5. We will discuss the patient during care team staff meeting this week. TRANSINT:[id number] Voice Confirmation ID: [id number] DOCUMENT ID: [id number] BLANCA notes whether there has been none or any medical/functional change since admission: - No change since pre-admission screen. BLANCA attests patient continues to be appropriate for IRF: - Continues to be appropriate. HISTORY AND PHYSICAL [id number] BLADIMIR RIVERA,KETURAH GEORGES MD at 1403 CC: [id number] DICTATION DATE: 07/22/18840 TEACHER PRESCHOOL: 07/22/18 1009 ADM IN [facility] [address] [place] [address]
[2018-07-22 14:22] VITALS: Ht 167.6 cm; Wt 63.5 kg
[2018-07-22 19:00] VITALS: BP 112/55
[2018-07-23 08:00] VITALS: BP 103/53
[2018-07-23 19:00] VITALS: BP 99/54
[2018-07-24 07:59] LABS: BASOPHILS 0.1 % (0-2); EOSINOPHILS 1.9 % (0-7); HEMATOCRIT 33.6 % (42.0-54.0); HEMOGLOBIN 11.3 g/dL (13.5-17.5); IMMATURE GRANULOCYTES 0.4 % (0-5); LYMPHOCYTES 29.4 % (15-50); MCH 31.1 pg (26.0-34.0); MCHC 33.6 g/dL (31.0-37.0); MCV 92.6 fL (80.0-100.0); MEAN PLATELET VOLUME 9.6 fL (7.4-10.4); MONOCYTES 10.3 % (2-11); NEUTROPHILS 57.9 % (40-80); PLATELET COUNT 185 10x3/uL (130-400); RBC 3.63 10x6/uL (4.20-6.10); RDW 15.4 % (11.5-14.5); WBC 6.8 10x3/uL (4.8-10.8)
[2018-07-24 08:02] VITALS: BP 95/63
[2018-07-24 08:20] LABS: CALC OSMOLALITY 278 mosm/kg (275-300); CALCIUM 8.6 mg/dL (8.5-10.1); CARBON DIOXIDE 22.2 mmol/L (21.0-32.0); CHLORIDE - SERUM 101 mmol/L (98-107); CREATININE - SERUM 0.8 mg/dL (0.6-1.3); GLUCOSE 113 mg/dL (74-106); SODIUM 138 mmol/L (136-145); UREA NITROGEN 18 mg/dL (7-18); eGFR NON AFRICAN AMERICAN > 90 mL/min (90-120)
[2018-07-24 08:28] LABS: POTASSIUM - SERUM 3.9 mmol/L (3.5-5.1)
[2018-07-24 20:06] VITALS: BP 120/80
[2018-07-25 08:00] VITALS: BP 112/56
[2018-07-25 20:00] VITALS: BP 105/59
[2018-07-26 08:00] VITALS: BP 114/60
[2018-07-26 20:00] VITALS: BP 91/48
[2018-07-26 21:37] VITALS: BP 91/48
[2018-07-27 08:06] VITALS: BP 99/44
[2018-07-27 19:00] VITALS: BP 100/58
[2018-07-28 08:00] VITALS: BP 112/57
[2018-07-28 19:01] VITALS: BP 101/64
[2018-07-29 07:45] VITALS: BP 122/55
[2018-07-29 19:00] VITALS: BP 103/53
[2018-07-30 08:21] VITALS: BP 144/69
[2018-07-30 19:00] VITALS: BP 119/54
[2018-07-31 08:00] VITALS: BP 112/57
== END 2018-07-31 15:12 | disposition home health service (06) | DRG 70 ==
LOC: D.REHAB 16:49
PROVIDERS: ADMIT Emergency Medicine; ATTEND Emergency Medicine
DX: G93.41 Metabolic encephalopathy (principal); I61.9 Nontraumatic intracerebral hemorrhage, unspecified; K72.00 Acute and subacute hepatic failure without coma; I50.23 Acute on chronic systolic (congestive) heart failure; E72.20 Disorder of urea cycle metabolism, unspecified; N17.9 Acute kidney failure, unspecified; E11.9 Type 2 diabetes mellitus without complications; F03.90 Unspecified dementia, unspecified severity, without behavioral disturbance, psychotic disturbance, mood disturbance, and anxiety; R33.9 Retention of urine, unspecified; E53.8 Deficiency of other specified B group vitamins; D50.9 Iron deficiency anemia, unspecified; E87.8 Other disorders of electrolyte and fluid balance, not elsewhere classified; E83.42 Hypomagnesemia; E78.5 Hyperlipidemia, unspecified; M10.9 Gout, unspecified; I11.0 Hypertensive heart disease with heart failure

== ENCOUNTER 2018-08-16 01:50 | Inpatient (IN) | payer MEDICARE ==
[2018-08-16] VITALS (8 sets, daily range): BP systolic 96–168; BP diastolic 49–79; BMI 21.8
[2018-08-16 02:32] LABS: BASOPHILS 0 % (0-2); EOSINOPHILS 0.2 % (0-7); HEMATOCRIT 34.2 % (42.0-54.0); HEMOGLOBIN 11.7 g/dL (13.5-17.5); LYMPHOCYTES 10.1 % (15-50); MCH 31.6 pg (26.0-34.0); MCHC 34.2 g/dL (31.0-37.0); MCV 92.4 fL (80.0-100.0); MEAN PLATELET VOLUME 9.4 fL (7.4-10.4); MONOCYTES 7.3 % (2-11); NEUTROPHILS 81.4 % (40-80); PLATELET COUNT 187 10x3/uL (130-400); RDW 15.3 % (11.5-14.5)
--- NOTE | 2018-08-16 02:35 | NUR ---
PT C/O NAUSEA. PT RECEIVED IV ZOFRAN ORDERED.
[2018-08-16 02:59] LABS: ALKALINE PHOSPHATASE 81 U/L (46-116); ALT (SGPT) 44 U/L (10-68); AMYLASE - SERUM 33 U/L (25-115); BILIRUBIN - TOTAL 0.59 mg/dL (0.2-1.3); CALC OSMOLALITY 275 mosm/kg (275-300); CALCIUM 8.2 mg/dL (8.5-10.1); CARBON DIOXIDE 24.5 mmol/L (21.0-32.0); CHLORIDE - SERUM 97 mmol/L (98-107); GLUCOSE 150 mg/dL (74-106); LIPASE 78 U/L (73-393); PROTEIN - SERUM 6.5 g/dL (6.4-8.2); SODIUM 135 mmol/L (136-145); TROPONIN-I < 0.017 ng/mL (0.000-0.060); UREA NITROGEN 21 mg/dL (7-18); eGFR NON AFRICAN AMERICAN 76 mL/min (90-120)
[2018-08-16 03:03] LABS: POTASSIUM - SERUM 2.8 mmol/L (3.5-5.1)
--- NOTE | 2018-08-16 03:30 | NUR ---
PT RESTING ON BED, NO S/S OF ACUTE DISTRESS NOTED.
--- NOTE | 2018-08-16 04:37 | NUR ---
PT RETURNED FROM CT VIA STRETCHER.
--- NOTE | 2018-08-16 05:21 | NUR ---
PT C/O FEELING COLDER AND COLDER- TEMP INCREASED TO 100.3
--- NOTE | 2018-08-16 05:45 | NUR ---
FLAGYL AND NS WITH 20 KCL CON'T ON ADMISSION.
--- NOTE | 2018-08-16 07:18 | NUR ---
ADMIT TO ROOM 2106 @ 0610 FROM ER. ALERT/ORIENTED. VERY THIN/EMACIATED WHITE MALE. COVERED WITH BLANKETS BECAUSE HE IS COLD. ADMISSION ASSESSMENT AND HISTORY COMPLETED. PT UNSURE OF HOME MEDS, BUT WAS RECENTLY IN THE HOSPITAL AND SAYS MEDS ARE THE SAME WHEN HE WAS LAST SENT HOME. IVF NS + 20KCL @ 125ML/HR INFUSING. IV ROCEPHIN COMPLETING. SKIN ASSESSMENT SHOWS SCABBED STAGE 2 TO RIGHT BUTTOCK AND GENERALIZED REDNESS TO REAR. NO OTHER SKIN ISSUES NOTED. CARE PROVIDED FOR EPISODE OF MUCOUS STOOL. CALL LIGHT IN REACH. PLAN OF CARE INITIATED. REPORT TO YI NEWMAN FOR DAY SHIFT. REPORTED THAT IV ABT # 2 STILL NEEDS TO BE VERIFIED AND STARTED.
[2018-08-16 17:12] LABS: % SATURATION 14 % (15-55); IRON 31 ug/dl (35-150); TOTAL IRON BIND CAPACITY 208 ug/dl (260-445); UNSAT IRON BIND CAPACITY 177 ug/dl (150-375)
--- NOTE | 2018-08-16 18:21 | NUR ---
I have reviewed this patient and I concur with the Shift Assessment completed by the Licensed Practical Nurse today this shift.
--- NOTE | 2018-08-16 19:31 | NUR ---
EVENING ROUNDS COMPLETED. REPORT RECEIVED. PT SITTING UP IN BED WITH EYES OPEN, RR EVEN AND UNLABORED. LEFT HAND PIV INFUSING NORMAL SALINE ORDERED. NO S/S OF DISTRESS NOTED. INTRODUCED SELF TO PT. PROVIDED PT URINAL PER PT REQUEST. PT DENIES FURTHER NEEDS AT THIS TIME. CALL LIGHT IN REACH. WILL CTM.
--- NOTE | 2018-08-17 02:50 | NUR ---
I have reviewed this patient and I concur with the Shift Assessment completed by the Licensed Practical Nurse today this shift.
[2018-08-17 03:42] VITALS: BP 107/54
[2018-08-17 05:33] LABS: BASOPHILS 0 % (0-2); EOSINOPHILS 0.5 % (0-7); HEMATOCRIT 29.4 % (42.0-54.0); HEMOGLOBIN 9.9 g/dL (13.5-17.5); IMMATURE GRANULOCYTES 0.3 % (0-5); LYMPHOCYTES 19.7 % (15-50); MCH 30.9 pg (26.0-34.0); MCHC 33.7 g/dL (31.0-37.0); MCV 91.9 fL (80.0-100.0); MEAN PLATELET VOLUME 9.5 fL (7.4-10.4); MONOCYTES 9.2 % (2-11); NEUTROPHILS 70.3 % (40-80); PLATELET COUNT 176 10x3/uL (130-400); RDW 15.3 % (11.5-14.5)
[2018-08-17 05:38] LABS: WBC 3.8 10x3/uL (4.8-10.8)
[2018-08-17 06:01] LABS: ALBUMIN 2.3 g/dL (3.4-5.0); ALKALINE PHOSPHATASE 57 U/L (46-116); BILIRUBIN - TOTAL 0.34 mg/dL (0.2-1.3); CALCIUM 7.1 mg/dL (8.5-10.1); CHLORIDE - SERUM 106 mmol/L (98-107); GLUCOSE 104 mg/dL (74-106); PROTEIN - SERUM 5.3 g/dL (6.4-8.2); SODIUM 138 mmol/L (136-145)
[2018-08-17 06:04] LABS: CALC OSMOLALITY 274 mosm/kg (275-300); CREATININE - SERUM 0.7 mg/dL (0.6-1.3); UREA NITROGEN 11 mg/dL (7-18); eGFR NON AFRICAN AMERICAN > 90 mL/min (90-120)
[2018-08-17 06:05] LABS: ALT (SGPT) 65 U/L (10-68); POTASSIUM - SERUM 2.7 mmol/L (3.5-5.1)
--- NOTE | 2018-08-17 06:16 | NUR ---
2.7 POTASSIUM TREATED ORDERED, REDRAW TIMED FOR 1030.
--- NOTE | 2018-08-17 07:41 | NUR ---
PATIENT RESTING IN BED. ALERT/SOME FORGETFULLNESS NOTED. BED ALARM ON. CALL LIGHT WITHIN REACH. VOICES NO NEEDS. WILL CONTINUE WITH PLAN OF CARE
[2018-08-17 07:59] VITALS: BP 93/43
[2018-08-17] MEDS ORDERED: FUROSEMIDE20 MG PO (09:45)
--- NOTE | 2018-08-17 09:47 | NUR ---
MED REC COMPLETED MOST ACCURATE PER PTS PHARMACY KEVIN. PT HAS DEMENTIA AND NOT A GOOD SOURCE OF INFORMATION. DISCUSSED WITH PRIMARY.
--- NOTE | 2018-08-17 09:49 | NUR ---
DR FLANNERY REVIEWED AND WROTE NOTE ON THIS PATIENT
[2018-08-17 12:04] VITALS: BP 94/47
[2018-08-17 12:28] VITALS: BMI 21.7
--- NOTE | 2018-08-17 12:50 | NUR ---
PATIENT INCONT OF BOWEL. LINENES CHANGED. NOREEN CARE GIVEN. USING URINAL WHILE IN BED
--- NOTE | 2018-08-17 14:26 | NUR ---
DR FLANNERY INTO SEE PATIENT. NEW ORDERS RECEIVED
--- NOTE | 2018-08-17 19:15 | NUR ---
PATIENT LAYING IN BED. NO COMPLAINTS AT THIS TIME. NO DISTRESS NOTED.
[2018-08-17 20:00] VITALS: BP 109/53
[2018-08-18 00:02] VITALS: BP 103/52
--- NOTE | 2018-08-18 01:12 | NUR ---
PATIENT LAYING IN BED. NO COMPLAINTS AT THIS TIME. NO DISTRESS NOTED.
[2018-08-18 04:00] VITALS: BP 104/55
[2018-08-18 05:53] LABS: BASOPHILS 0.2 % (0-2); HEMATOCRIT 30.1 % (42.0-54.0); HEMOGLOBIN 10.1 g/dL (13.5-17.5); IMMATURE GRANULOCYTES 0.5 % (0-5); LYMPHOCYTES 29.8 % (15-50); MCH 31.2 pg (26.0-34.0); MCHC 33.6 g/dL (31.0-37.0); MCV 92.9 fL (80.0-100.0); MEAN PLATELET VOLUME 9.5 fL (7.4-10.4); MONOCYTES 11.7 % (2-11); NEUTROPHILS 55.8 % (40-80); PLATELET COUNT 174 10x3/uL (130-400); RBC 3.24 10x6/uL (4.20-6.10); RDW 15.5 % (11.5-14.5); WBC 4.1 10x3/uL (4.8-10.8)
[2018-08-18 06:16] LABS: ALBUMIN 2.3 g/dL (3.4-5.0); ALKALINE PHOSPHATASE 57 U/L (46-116); ALT (SGPT) 65 U/L (10-68); BILIRUBIN - TOTAL 0.37 mg/dL (0.2-1.3); CHLORIDE - SERUM 107 mmol/L (98-107); CREATININE - SERUM 0.7 mg/dL (0.6-1.3); GLUCOSE 110 mg/dL (74-106); PROTEIN - SERUM 5.3 g/dL (6.4-8.2); SODIUM 141 mmol/L (136-145); eGFR NON AFRICAN AMERICAN > 90 mL/min (90-120)
[2018-08-18 06:35] LABS: CALC OSMOLALITY 279 mosm/kg (275-300); UREA NITROGEN 8 mg/dL (7-18)
[2018-08-18 06:36] LABS: CALCIUM 6.9 mg/dL (8.5-10.1); POTASSIUM - SERUM 2.9 mmol/L (3.5-5.1)
[2018-08-18 09:18] VITALS: BP 103/58
--- NOTE | 2018-08-18 10:16 | NUR ---
PATIENT IS ALERT AND ORIENTED. HE IS ABLE TO ATTEMPT TO USE THE URINAL. DRESSING ON HIS HAND OVER HIS IV IS LIFTING OFF, WILL REDRESS IV. LININ CHANGE COMPLETED AFTER PATIENT HAD A BM IN THE BED. DENIES ANY OTHER NEEDS AT THIS TIME.
--- NOTE | 2018-08-18 11:09 | NUR ---
PATIENT WAS ABLE TO USE URINAL AND I COLLECTED THE URINE SPECIMEN THAT WAS DUE. REDRESSED THE IV ON HIS LEFT HAND AND TIGHTENED THE CONNECTORS AT THE TUBING. TURNED AND REPOSITIONED THE PATIENT AGAIN. WE ARE KEEPING HIM TURNED Q 2 HOURS TO KEEP HIM OFF HIS BACK. HE DID HAVE A LARGE MEPLEX ON HIS COCCYX. HOWEVER, WHEN WE REMOVED THE DRESSING, THERE IS SLIGHT REDNESS AND NO BLISTER OR OPEN SKIN. KEEPING THE PATIENT CLEAN AND DRY.
--- NOTE | 2018-08-18 12:56 | NUR ---
NEW IV STARTED IN LEFT HAND. 22G ONE STICK, PATIENT TOLERATED.
--- NOTE | 2018-08-18 12:56 | NUR ---
IV IN LEFT HAND BECAME DISLODGED AND WAS REMOVED WITH CATHETER INTACT.
[2018-08-18 13:05] LABS: APPEARANCE CLEAR (CLEAR); BILIRUBIN NEGATIVE (NEGATIVE); COLOR YELLOW (YELLOW); GLUCOSE NEGATIVE (NEGATIVE); KETONE NEGATIVE (NEGATIVE); NITRITE NEGATIVE (NEGATIVE); PROTEIN NEGATIVE (NEGATIVE); UROBILINOGEN NORMAL (NORMAL)
[2018-08-18 13:12] LABS: BACTERIA FEW /hpf (NONE SEEN); EPITHELIAL CELLS OCC /hpf (0-5); MUCUS <1+ /lpf (NONE SEEN); WHITE CELLS - URINE 0-5 /hpf (0-5)
[2018-08-18 15:12] LABS: FOLATE (FOLIC ACID) - SERUM 17.1 ng/mL (>3.0)
--- NOTE | 2018-08-18 18:38 | NUR ---
PATIENT IS RESTING COMFORTABLY ON HIS LEFT SIDE AT THIS TIME. WE ARE KEEPING HIM OFF HIS BOTTOM, AND HIS SKIN LOOKS GOOD. PATIENT DENIES ANY NEEDS AT THIS TIME. IV IS INFUSING THROUGH HIS RIGHT HAND .
[2018-08-18 18:42] VITALS: BP 120/49
[2018-08-18 18:51] VITALS: BP 95/47
[2018-08-18 20:00] VITALS: BP 105/57
[2018-08-19 00:08] VITALS: BP 99/59
--- NOTE | 2018-08-19 02:58 | NUR ---
I have reviewed this patient and I concur with the Shift Assessment completed by the Licensed Practical Nurse today this shift.
[2018-08-19 04:00] VITALS: BP 101/57
[2018-08-19 05:08] LABS: BASOPHILS 0 % (0-2); EOSINOPHILS 1.6 % (0-7); HEMOGLOBIN 9.4 g/dL (13.5-17.5); IMMATURE GRANULOCYTES 0.5 % (0-5); LYMPHOCYTES 36.5 % (15-50); MCHC 33.6 g/dL (31.0-37.0); MCV 92.4 fL (80.0-100.0); MEAN PLATELET VOLUME 9.7 fL (7.4-10.4); MONOCYTES 10.3 % (2-11); NEUTROPHILS 51.1 % (40-80); PLATELET COUNT 179 10x3/uL (130-400); RBC 3.03 10x6/uL (4.20-6.10); RDW 15.7 % (11.5-14.5); WBC 4.4 10x3/uL (4.8-10.8)
[2018-08-19 05:30] LABS: ALBUMIN 2.2 g/dL (3.4-5.0); ALKALINE PHOSPHATASE 56 U/L (46-116); ALT (SGPT) 49 U/L (10-68); BILIRUBIN - TOTAL 0.31 mg/dL (0.2-1.3); CALC OSMOLALITY 278 mosm/kg (275-300); CARBON DIOXIDE 22.5 mmol/L (21.0-32.0); CHLORIDE - SERUM 109 mmol/L (98-107); CREATININE - SERUM 0.6 mg/dL (0.6-1.3); GLUCOSE 103 mg/dL (74-106); PROTEIN - SERUM 4.9 g/dL (6.4-8.2); SODIUM 141 mmol/L (136-145); UREA NITROGEN 7 mg/dL (7-18); eGFR NON AFRICAN AMERICAN > 90 mL/min (90-120)
[2018-08-19 05:33] LABS: CALCIUM 6.9 mg/dL (8.5-10.1); POTASSIUM - SERUM 3.7 mmol/L (3.5-5.1)
--- NOTE | 2018-08-19 08:20 | NUR ---
RESUMING PT CARE, PT SITTING UP IN BED ALERT AND ORIENTED, EATING BREAKFAST. DENIES NEEDS AT THIS TIME. WILL CONTINUE TO MONITOR AND FOLLOW PLAN OF CARE.
[2018-08-19 08:44] VITALS: BP 100/56
--- NOTE | 2018-08-19 09:39 | NUR ---
I have reviewed this patient and I concur with the Shift Assessment completed by the Licensed Practical Nurse today this shift.
[2018-08-19] MEDS ORDERED: LEVOFLOXACIN500 MG PO (11:24)
[2018-08-19] MEDS ORDERED: FLORAJEN3 CAPS460 MG PO (11:24)
[2018-08-19] MEDS ORDERED: FLAGYL500 MG PO (11:25)
[2018-08-19 11:40] VITALS: BP 106/56
--- NOTE | 2018-08-19 12:30 | NUR ---
PT RESTING IN BED, DENIES ANY NEEDS AT THIS TIME. WILL CONT TO FOLLOW POC
--- NOTE | 2018-08-19 15:15 | NUR ---
Rehab Prescreening Consult recieved and the chart has been reviewed. This patient has been on the acute rehab unit 4 times since the end of Mar 2018. He just discharged on 2018 with . He evidently did not stay home long enough to have start services. He does not have a qualifying ARU diagnosis at this time. Reccommend a SNF facility, discussed with the Beth Tapia RN. Rosalina Wolf RN Clinical Liaison, Rehab
[2018-08-19 15:46] VITALS: BP 118/64
--- NOTE | 2018-08-19 18:47 | MORECARE ---
CASE MANAGEMENT DISCHARGE SUMMARY PATIENT: BLADIMIR RIVERA UNIT: [id number] ADM DATE: 08/16/18 AGE: 82 : 33 SEX: M ROOM/BED: D.2106 AUTHOR: JORGE ZAMBRANO PHYSICIAN: REFERRING PHYSICIAN: TEODORO BLOCK MD DATE OF SERVICE: 08/19/18 Discharge Plan Patient Name: BLADIMIR RIVERA [facility] [facility] 1935 Planned Disposition: Long Term Facility Anticipated Discharge Date: Discharge Date: Expected LOS: Initial Reviewer: [email or web address] Initial Review Date: 08/16/2018 Generated: 08/19/18 7:47 pm Patient Name: BLADIMIR RIVERA Page [id number] at 1847 All edits/amendments must be made on the electronic document DICTATION DATE: 08/19/181846 SETTLEMENT AGENT: DARREL 08/19/181846 RPT#: [id number] DC DATE: STATUS: ADM IN [facility] [address] [place] [address] END OF REPORT
--- NOTE | 2018-08-19 19:02 | MORECARE ---
CASE MANAGEMENT DISCHARGE SUMMARY PATIENT: BLADIMIR RIVERA UNIT: [id number] ADM DATE: 08/16/18 AGE: 82 : 33 SEX: M ROOM/BED: D.2106 AUTHOR: JORGE ZAMBRANO PHYSICIAN: REFERRING PHYSICIAN: TEODORO BLOCK MD DATE OF SERVICE: 08/19/18 Discharge Plan Patient Name: BLADIMIR RIVERA [facility] [facility] 1935 Planned Disposition: Custodial Facility Anticipated Discharge Date: Discharge Date: Expected LOS: Initial Reviewer: [email or web address] Initial Review Date: 08/16/2018 Generated: 08/19/18 8:02 pm Comments DCP- Discharge Planning Updated by [email or web address]: Ana Luisa Virk on 08/19/18 5:[address] Patient was discharged to home from [facility] acute rehab 07/31/2018. Readmitted 08/16/18. Patient has had 4 acute admission and 3 acute admissions 2018. patient expressed interest to go to acute rehab. Pt carly ordered and completed this afternoon.. Rec phone call from Rosalina with acute rehab. Patient would be more appropriate for skilled rehab. She spoke with the family and they felt [facility] will be appropriate. CM spoke with the patient. Discuss options. Explained acute rehab had declined admission. Patient had been referred to [facility] at his previous rehab discharge 07/31/18. Discussed SNF rehab and providers. List provided. Discussed family choice. Patient consent obtained for referral to [facility]. TC to [facility]. Faxed referral to attention of Ferny. Will follow up in the AM. Last DP export: 08/19/18 5:47 p Patient Name: BLADIMIR RIVERA Page [phone] at 1902 All edits/amendments must be made on the electronic document DICTATION DATE: 08/19/181900 HURRICANE TRACKER: DARREL 08/19/181900 RPT#: [id number] DC DATE: STATUS: ADM IN [facility] [address] [place] [address] END OF REPORT
--- NOTE | 2018-08-19 19:55 | NUR ---
EVENING ROUNDS COMPLETED. VSS, AAOX3, NO S/S OF DISTRESS. PT HAD AN EPISODE OF INCONTINENT BM. HELP CLEAN UP PT AND PROVIDED NEW LINENS. PT VOICED THANKS. DENIES ANY FURTHER NEEDS AT THIS TIME. WILL CPOC.
[2018-08-19 20:00] VITALS: BP 106/63
[2018-08-20] VITALS: BP 115/70
[2018-08-20 04:00] VITALS: BP 112/68
[2018-08-20 06:37] LABS: ALBUMIN 2.3 g/dL (3.4-5.0); ALKALINE PHOSPHATASE 57 U/L (46-116); ALT (SGPT) 41 U/L (10-68); CALC OSMOLALITY 278 mosm/kg (275-300); CARBON DIOXIDE 21.7 mmol/L (21.0-32.0); CHLORIDE - SERUM 112 mmol/L (98-107); CREATININE - SERUM 0.7 mg/dL (0.6-1.3); GLUCOSE 126 mg/dL (74-106); POTASSIUM - SERUM 3.5 mmol/L (3.5-5.1); PROTEIN - SERUM 4.8 g/dL (6.4-8.2); SODIUM 140 mmol/L (136-145); UREA NITROGEN 7 mg/dL (7-18); eGFR NON AFRICAN AMERICAN > 90 mL/min (90-120)
[2018-08-20 06:39] LABS: BASOPHILS 0.2 % (0-2); EOSINOPHILS 1.3 % (0-7); HEMATOCRIT 27.5 % (42.0-54.0); HEMOGLOBIN 9.3 g/dL (13.5-17.5); IMMATURE GRANULOCYTES 0.9 % (0-5); LYMPHOCYTES 30.2 % (15-50); MCH 31.2 pg (26.0-34.0); MCHC 33.8 g/dL (31.0-37.0); MCV 92.3 fL (80.0-100.0); MEAN PLATELET VOLUME 9.3 fL (7.4-10.4); MONOCYTES 8.3 % (2-11); NEUTROPHILS 59.1 % (40-80); PLATELET COUNT 169 10x3/uL (130-400); RBC 2.98 10x6/uL (4.20-6.10); RDW 15.9 % (11.5-14.5); WBC 5.4 10x3/uL (4.8-10.8)
--- NOTE | 2018-08-20 07:30 | NUR ---
A/A/OX4. DENIES ANY NEEDS AT PRESENT TIME. IV PATENT TO RIGHT HAND. ASSESSMENT COMPLETED AND WILL CONTINUE POC.
[2018-08-20 08:18] VITALS: BP 119/65
[2018-08-20 12:39] VITALS: BP 110/65
--- NOTE | 2018-08-20 12:43 | NUR ---
I have reviewed this patient and I concur with the Shift Assessment completed by the Licensed Practical Nurse today this shift.
--- NOTE | 2018-08-20 14:07 | NUR ---
DISCHARGE INSTRUCTION REVIEWED WITH PT AND REPORT CALLED TO [facility]. SPOKE WITH NATHAN NEWMAN. IV DC'D WITH CATH TIP INTACT AND PT TOLERATED WELL.
--- NOTE | 2018-08-20 15:45 | NUR ---
LEFT FLOOR VIA W/C WITH ALL PERSONAL BELONGINGS. LEFT FACILITY VIA VAN FROM [facility].
--- NOTE | 2018-08-20 17:39 | MORECARE ---
CASE MANAGEMENT DISCHARGE SUMMARY PATIENT: BLADIMIR RIVERA UNIT: [id number] ADM DATE: 08/16/18 AGE: 82 : 33 SEX: M ROOM/BED: D.2106 AUTHOR: JORGE ZAMBRANO PHYSICIAN: REFERRING PHYSICIAN: TEODORO BLOCK MD DATE OF SERVICE: 08/20/18 Discharge Plan Patient Name: BLADIMIR RIVERA [facility] [facility] 1935 Planned Disposition: Long-Term Facility Anticipated Discharge Date: 08/20/18 Discharge Date: 08/20/2018 Expected LOS: 4 Initial Reviewer: [email or web address] Initial Review Date: 08/16/2018 Generated: 08/20/18 6:39 pm Comments DCP- Discharge Planning Updated by [email or web address]: Ana Luisa Virk on 08/19/18 5:[address] Patient was discharged to home from [facility] acute rehab 07/31/2018. Readmitted 08/16/18. Patient has had 4 acute admission and 3 acute admissions 2018. patient expressed interest to go to acute rehab. Pt carly ordered and completed this afternoon.. Rec phone call from Rosalina with acute rehab. Patient would be more appropriate for skilled rehab. She spoke with the family and they felt [facility] will be appropriate. CM spoke with the patient. Discuss options. Explained acute rehab had declined admission. Patient had been referred to [facility] at his previous rehab discharge 07/31/18. Discussed SNF rehab and providers. List provided. Discussed family choice. Patient consent obtained for referral to [facility]. TC to [facility]. Faxed referral to attention of Ferny. Will follow up in the AM. Last DP export: 08/19/18 6:02 p Patient Name: BLADIMIR RIVERA Page 53823 at 2566 All edits/amendments must be made on the electronic document DICTATION DATE: 08/20/181738 TRANSPORTATION BROKER: DARREL 08/20/181738 RPT#: [id number] DC DATE:08/20/18 STATUS: DIS IN [facility] [address] [place] [address] END OF REPORT
--- NOTE | 2018-08-20 17:53 | MORECARE ---
CASE MANAGEMENT DISCHARGE SUMMARY PATIENT: BLADIMIR RIVERA UNIT: [id number] ADM DATE: 08/16/18 AGE: 82 : 33 SEX: M ROOM/BED: D.2106 AUTHOR: KENYA,DOC PHYSICIAN: REFERRING PHYSICIAN: TEODORO BLOCK MD DATE OF SERVICE: 08/20/18 Discharge Plan Patient Name: BLADIMIR RIVERA Facility: [facility]:[place] : 1935 Planned Disposition: Halfway Facility Anticipated Discharge Date: 08/20/18 Discharge Date: 08/20/2018 Expected LOS: 4 Initial Reviewer: [email or web address] Initial Review Date: 08/16/2018 Generated: 08/20/18 6:53 pm Comments DCP- Discharge Planning Updated by [email or web address]: Ana Luisa Virk on 08/20/18 4:[address] LATE ENTRY 09 RFID DEVELOPER RECEIVED A TELEPHONE CALL FROM A FRIEND OF THE PATIENT, EZRA RIDLEY, SHE STATES SHE HELPS HIM WITH HIS PAPERWORK. CRISTINA WENT TO THE ROOM AND SPOKE WITH THE PATIENT HE STATED YES, IT WAS OKAY TO SPEAK WITH HER AND LET HER ASSIST W/ [facility] ADMISSION. EZRA RIDLEY -[phone]- FRIEND ADA CRUZ, ADMISSION DIRECTOR, VISITED THE UNIT THIS EARLY AM. THE PATIENT WAS UP TO THE BATHROOM WITH PHYSICAL THERAPY. ADA VISITED WITH THE RFID DEVELOPER, STATED HE WOULD GET BACK TO ME REGARDING THE ADMISSION TO [facility]. CRISTINA PROVIDED HIM W/ MS RIDLEY'S TELEPHONE NUMBER. [phone] CRISTINA REC A TELEPHONE CALL.FROM ADA, THE PATIENT WAS ACCEPTED AND [facility]OULD COME TO TRANSPORT HIM AT 1400. MS RIDLEY HAD COMPLETED THE PAPERWORK. CRISTINA ADVISED THE INFRASTRUCTURE DESIGN ENGINEER AND THE PRIMARY NURSE. THE PATIENT WAS DISCHARGED TO A MEDICARE BED. DCP- Discharge Planning Updated by [email or web address]: Ana Luisa Virk on 08/19/18 5:[address] Patient was discharged to home from [facility] acute rehab 07/31/2018. Readmitted 08/16/18. Patient has had 4 acute admission and 3 acute admissions 2018. patient expressed interest to go to acute rehab. Pt carly ordered and completed this afternoon.. Rec phone call from Rosalina with acute rehab. Patient would be more appropriate for skilled rehab. She spoke with the family and they felt [facility] will be appropriate. CM spoke with the patient. Discuss options. Explained acute rehab had declined admission. Patient had been referred to [facility] at his previous rehab discharge 07/31/18. Discussed SNF rehab and providers. List provided. Discussed family choice. Patient consent obtained for referral to [facility]. TC to [facility]. Faxed referral to attention of [facility]. Will follow up in the AM. Last DP export: 08/20/18 4:39 p Patient Name: BLADIMIR RIVERA Page [id number] at 1753 All edits/amendments must be made on the electronic document DICTATION DATE: 08/20/181752 RETAIL CUSTOMER SERVICE SPECIALIST: DARREL 08/20/181752 RPT#: [id number] DC DATE:08/20/18 STATUS: DIS IN [address] [address] [place] [address] END OF REPORT
--- NOTE | 2018-08-21 16:33 | MORECARE ---
CASE MANAGEMENT DISCHARGE SUMMARY PATIENT: BLADIMIR RIVERA UNIT: [id number] ADM DATE: 08/16/18 AGE: 82 : 33 SEX: M ROOM/BED: D.2106 AUTHOR: KENYA,DOC PHYSICIAN: REFERRING PHYSICIAN: TEODORO BLOCK MD DATE OF SERVICE: 08/21/18 Discharge Plan Patient Name: BLADIMIR RIVERA Facility: [facility]:[place] : 1935 Planned Disposition: Care Home Facility Anticipated Discharge Date: 08/20/18 Discharge Date: 08/20/2018 Expected LOS: 4 Initial Reviewer: [email or web address] Initial Review Date: 08/16/2018 Generated: 08/21/18 5:33 pm Comments DCP- Discharge Planning Updated by [email or web address]: Ana Luisa Virk on 08/20/18 4:[address] LATE ENTRY 09 ALUMINUM SIDING MECHANIC RECEIVED A TELEPHONE CALL FROM A FRIEND OF THE PATIENT, EZRA RIDLEY, SHE STATES SHE HELPS HIM WITH HIS PAPERWORK. CRISTINA WENT TO THE ROOM AND SPOKE WITH THE PATIENT HE STATED YES, IT WAS OKAY TO SPEAK WITH HER AND LET HER ASSIST W/ [facility] ADMISSION. EZRA RIDLEY -[phone]- FRIEND ADA CRUZ, ADMISSION DIRECTOR, VISITED THE UNIT THIS EARLY AM. THE PATIENT WAS UP TO THE BATHROOM WITH PHYSICAL THERAPY. ADA VISITED WITH THE ALUMINUM SIDING MECHANIC, STATED HE WOULD GET BACK TO ME REGARDING THE ADMISSION TO [facility]. CRISTINA PROVIDED HIM W/ MS RIDLEY'S TELEPHONE NUMBER. [phone] CRISTINA REC A TELEPHONE CALL.FROM ADA, THE PATIENT WAS ACCEPTED AND [facility] WOULD COME TO TRANSPORT HIM AT 1400. MS RIDLEY HAD COMPLETED THE PAPERWORK. CRISTINA ADVISED THE MANUSCRIPTS ARCHIVIST AND THE PRIMARY NURSE. THE PATIENT WAS DISCHARGED TO A MEDICARE BED. DCP- Discharge Planning Updated by [id number]: Ana Luisa Virk on 08/19/18 5:[address] Patient was discharged to home from [facility] acute rehab 07/31/2018. Readmitted 08/16/18. Patient has had 4 acute admission and 3 acute admissions 2018. patient expressed interest to go to acute rehab. Pt carly ordered and completed this afternoon.. Rec phone call from Rosalina with acute rehab. Patient would be more appropriate for skilled rehab. She spoke with the family and they felt [facility] will be appropriate. CM spoke with the patient. Discuss options. Explained acute rehab had declined admission. Patient had been referred to [facility] at his previous rehab discharge 07/31/18. Discussed SNF rehab and providers. List provided. Discussed family choice. Patient consent obtained for referral to [facility]. TC to [facility]. Faxed referral to attention of [facility]. Will follow up in the AM. Last DP export: 08/20/18 4:53 p Patient Name: BLADIMIR RIVERA Page [id number] at 1633 All edits/amendments must be made on the electronic document DICTATION DATE: 08/21/181631 MEDICINE ASSISTANT: DARREL 08/21/181631 RPT#: [id number] DC DATE:08/20/18 STATUS: DIS IN [id number] [place] [address] END OF REPORT
== END 2018-08-20 16:02 | DRG 392 ==
LOC: D.ER 01:50 → D.M2 05:23
PROVIDERS: Family Medicine; ADMIT Internal Medicine Nephrology; ATTEND Internal Medicine Nephrology
DX: A09 Infectious gastroenteritis and colitis, unspecified (principal); N17.9 Acute kidney failure, unspecified; E11.9 Type 2 diabetes mellitus without complications; I11.0 Hypertensive heart disease with heart failure; I50.9 Heart failure, unspecified; F03.90 Unspecified dementia, unspecified severity, without behavioral disturbance, psychotic disturbance, mood disturbance, and anxiety; M81.0 Age-related osteoporosis without current pathological fracture; D50.9 Iron deficiency anemia, unspecified; E87.6 Hypokalemia; Z86.73 Personal history of transient ischemic attack (TIA), and cerebral infarction without residual deficits; Z95.0 Presence of cardiac pacemaker

== ENCOUNTER 2018-08-27 08:32 | Emergency (ER) | payer MEDICARE ==
[~2018-08-27] VITALS: Ht 167.6 cm; Wt 64.3 kg
[~2018-08-27 08:32] MED LIST changes: +FLAGYL500 MG PO; +FLORAJEN3 CAPS460 MG PO; +FUROSEMIDE20 MG PO; +LEVOFLOXACIN500 MG PO
[2018-08-27 08:38] VITALS: Ht 167.6 cm; Wt 64.3 kg
[2018-08-27 09:01] LABS: BASOPHILS 0.1 % (0-2); EOSINOPHILS 0 % (0-7); HEMATOCRIT 31.5 % (42.0-54.0); HEMOGLOBIN 10.4 g/dL (13.5-17.5); IMMATURE GRANULOCYTES 0.3 % (0-5); LYMPHOCYTES 12.5 % (15-50); MCH 31.4 pg (26.0-34.0); MCV 95.2 fL (80.0-100.0); MEAN PLATELET VOLUME 9.1 fL (7.4-10.4); MONOCYTES 6.2 % (2-11); NEUTROPHILS 80.9 % (40-80); PLATELET COUNT 234 10x3/uL (130-400); RBC 3.31 10x6/uL (4.20-6.10); RDW 16.7 % (11.5-14.5); WBC 6.9 10x3/uL (4.8-10.8)
[2018-08-27 09:09] LABS: APTT 24.1 SECONDS (22.8-39.4); INR 1.18 (0.85-1.17); PROTIME 14.5 SECONDS (11.6-15.0)
[2018-08-27 09:31] LABS: ALBUMIN 2.8 g/dL (3.4-5.0); ALKALINE PHOSPHATASE 52 U/L (46-116); ALT (SGPT) 16 U/L (10-68); CALC OSMOLALITY 280 mosm/kg (275-300); CALCIUM 8.2 mg/dL (8.5-10.1); CARBON DIOXIDE 26.7 mmol/L (21.0-32.0); CHLORIDE - SERUM 99 mmol/L (98-107); CKMB 0.7 U/L (0.0-3.6); CREATINE KINASE 47 UL (21-232); CREATININE - SERUM 1.1 mg/dL (0.6-1.3); GLUCOSE 145 mg/dL (74-106); PROTEIN - SERUM 5.8 g/dL (6.4-8.2); SODIUM 140 mmol/L (136-145); THYROID STIMULATING HORMONE 4.05 uIU/mL (0.36-3.74); TROPONIN-I 0.029 ng/mL (0.000-0.060); UREA NITROGEN 11 mg/dL (7-18); eGFR NON AFRICAN AMERICAN 68 mL/min (90-120)
[2018-08-27 09:33] LABS: MAGNESIUM - SERUM 0.9 mg/dL (1.8-2.4); POTASSIUM - SERUM 2.4 mmol/L (3.5-5.1)
[2018-08-27 19:17] VITALS: BP 110/50
== END 2018-08-27 19:04 | disposition other institution (70) ==
LOC: D.ER 08:32
PROVIDERS: Family Medicine
DX: R68.89 Other general symptoms and signs (principal); E11.65 Type 2 diabetes mellitus with hyperglycemia; E88.09 Other disorders of plasma-protein metabolism, not elsewhere classified; E87.6 Hypokalemia; E83.42 Hypomagnesemia; G40.89 Other seizures